=== PATIENT | male | born 1945 | race African-American/Black ===

== ENCOUNTER 2019-04-15 13:04 | Emergency (ER) | payer MEDICARE, MEDICAID, SELFPAY ==
[2019-04-15 13:05] VITALS: BP 124/78; PULSE 49; RESP 14; TEMP 36.5; O2SAT 97; BMI 23.3
[2019-04-15 13:10] VITALS: PULSE 43; RESP 14; O2SAT 98
--- NOTE | 2019-04-15 13:12 | EKG12_ITS ---
Test Reason : Blood Pressure : / mmHG Vent. Rate : 045 BPM Atrial Rate : 045 BPM P-R Int : 164 ms QRS Dur : 090 ms QT Int : 432 ms P-R-T Axes : 048 046 055 degrees QTc Int : 373 ms Sinus bradycardia Minimal voltage criteria for LVH, may be normal variant Septal infarct , age undetermined Abnormal ECG Confirmed by ANAYELI VILLAFUERTE ([id number]), marketing editor MARYANN ZARATE ([id number] on 04/17/2019 1:45:34 PM Referred By: YANDY Confirmed By:ANAYELI VILLAFUERTE
--- NOTE | 2019-04-15 13:14 | NURSING ---
NO OLD EKGS
[2019-04-15 14:22] LABS: Absolute Lymphocyte Count 1.47 X10^3/uL (0.83-4.51); Basophil# 0.05 X10^3/uL; Basophil% 1.2 % (0-1); Eosinophil# 0.22 X10^3/uL; Eosinophils% 5.4 % (0-5); Hemoglobin 13.4 g/dL (13.0-16.5); Lymphocyte # 1.47 X10^3/ul (4.0); Lymphocyte % 35.9 % (19-41); Mean Corp Hgb Conc 32.7 g/dL (32-36); Mean Corpuscular Hgb 32.9 pg (27.0-32.0); Mean Corpuscular Volume 100.7 fL (80-94); Mean Platelet Vol. 10.1 fl (6.2-12.0); Monocyte# 0.32 X10^3/uL; Monocyte% 7.8 % (0-10); NRBC Flagged by Analyzer 0 % (0-5); Neutrophil # 2.03 X10^3/uL (2.7-7.7); Neutrophil % 49.7 % (47-70); Platelet Count 295 K/mm3 (150-450); RBC Distribution Width CV 12.1 % (11.6-14.6); RBC Distribution Width SD 45.6 fl (35.1-43.9); Red Blood Count 4.07 M/mm3 (4.6-6.2); White Blood Count 4.1 K/mm3 (4.4-11.0)
[2019-04-15 14:36] LABS: ALB/GLOB Ratio 1.1 RATIO (0.9-2.4); AST(SGOT) 20 U/L (15-37); Alanine Aminotransfer ALT/SGPT 26 U/L (16-61); Albumin, Serum 3.7 g/dL (3.2-5.0); Alkaline Phosphatase 73 U/L (45-117); Anion Gap 3 (5-15); BUN 11 mg/dL (7-18); BUN/Creat Ratio 10.5 RATIO (10-20); Calcium,Total 9.7 mg/dL (8.5-10.1); Chloride 107 mmol/L (98-107); Creatinine, Serum 1.05 mg/dL (0.70-1.30); EST Glomerular Filtration Rate 74 mL/min (>60); Est Glom Filt Rate - Afr Amer 89 mL/min (>60); Estimated Creatinine Clearance 51.18 ml/min; Globulin 3.5 g/dL (2.2-4.2); Glucose 71 mg/dL (74-106); Potassium 4.5 mmol/L (3.5-5.1); Protein, Total 7.2 g/dL (6.4-8.2); Sodium Level 141 mmol/L (136-145)
[2019-04-15 14:56] VITALS: BP 107/84; BP 114/77; BP 118/77; PULSE 48; PULSE 49; PULSE 52
[2019-04-15 15:12] VITALS: BP 117/84; PULSE 36; RESP 13; O2SAT 100
--- NOTE | 2019-04-15 15:20 | ED.VISSUMM ---
- ER Visit Summary Date of Service: 04/15/19 Chief Complaint: Dizziness and bradycardia History of Present Illness: The patient is a 73 M who presents with intermittent dizziness that began yesterday. Patient states the dizziness last approximately 5 seconds. Patient states he feels like it is falling off to his left side. Patient states he feels like he is off balance. Patient states nothing makes it better or worse. Patient saw his primary care physician today who noted that he was having bradycardia and referred him to the emergency department. Patient denies any chest pain. Patient denies any shortness of breath. Patient denies any nausea or vomiting. Patient denies any diaphoresis. Currently, the patient denies any dizziness. Physical Examination: Vital signs are stable. Patient is afebrile. Patient is in no acute distress. Oral mucosa is pink and moist. Neck is supple. Trachea is midline. There is no JVD noted. Heart was regular rate and rhythm. Lungs are clear and equal bilaterally. Abdomen is soft. Bowel sounds are normal. There is no tenderness. There is no rebound or guarding noted. Skin is warm dry. Cranial nerves II through XII are intact. There are no focal motor or sensory deficits noted. Extremities are intact. There is no calf tenderness or edema. Test Results: EKG showed sinus bradycardia with a rate of 45. There are no acute ST or T wave changes. There are no prior EKGs available for comparison. CBC and basic metabolic profile were within normal limits. Orthostatic vital signs were obtained and were negative. Emergency Department Course and Treatment: Patient remained asymptomatic throughout his emergency department stay. Patient was instructed to drink plenty of fluids. Patient was instructed to follow-up with his primary care physician in 5 to 7 days. Patient understood and was agreeable with the plan. All questions were answered. Disposition: Discharge home Impression: 1. Bradycardia 2. Intermittent dizziness This note was generated with [employer] dictation software. It may contain incorrect words, spelling, and punctuation that were not noted in review of the chart prior to signing ED Disposition - Plan for ED Patient: Disposition: Home or Assisted Living Diagnosis: Sinus bradycardia, Dizziness of unknown cause Instructions: Bradycardia, DIZZINESS, Unk Cause Referrals: Jacy Haney MD [Primary Care Provider] - 5-7 Days
[2019-04-15 15:34] VITALS: BP 117/84; PULSE 52; RESP 16; O2SAT 100
--- NOTE | 2019-04-15 15:34 | ED.RN ---
REVIEWED D/C INSTRUCTIONS, FOLLOW UP CARE, AND S/S THAT WOULD WARRANT A RETURN TO THE ED WITH PT. PT VERBALIZED AN UNDERSTANDING AND DENIES FURTHER QUESTIONS FOR THIS RN. PT SKIN WARM/DRY, RESP EVEN AND UNLABORED, PT A&O X 3, NO DISTRESS NOTED. PT AMBULATED OUT OF ED, GAIT STEADY.
== END 2019-04-15 15:36 | disposition home or self-care (01) ==
PROVIDERS: Emergency Provider Emergency Medicine; PCP Internal Medicine
DX: R42 Dizziness and giddiness (principal); R00.1 Bradycardia, unspecified; F39 Unspecified mood [affective] disorder; Z72.0 Tobacco use; Z79.899 Other long term (current) drug therapy
CPT/HCPCS: 80053; 85025; 93005; 99285; A4216

== ENCOUNTER → 2020-04-21 14:47 | Outpatient (CLI) | payer MEDICARE, MEDICAID, SELFPAY ==
[2020-04-21 17:47] LABS: Absolute Lymphocyte Count 1.77 X10^3/uL (0.83-4.51); Absolute Neutrophil Count 3.8 X10^3/uL (2.0-7.7); Basophil# 0.06 X10^3/uL; Eosinophil# 0.13 X10^3/uL; Eosinophils% 2.1 % (0-5); Hematocrit 41.6 % (40-54); Hemoglobin 13.5 g/dL (13.0-16.5); Lymphocyte # 1.77 X10^3/ul (4.0); Lymphocyte % 28.4 % (19-41); Mean Corp Hgb Conc 32.5 g/dL (32-36); Mean Corpuscular Hgb 31.8 pg (27.0-32.0); Mean Corpuscular Volume 97.9 fL (80-94); Mean Platelet Vol. 9.6 fl (6.2-12.0); Monocyte# 0.49 X10^3/uL; Monocyte% 7.9 % (0-10); NRBC Flagged by Analyzer 0 % (0-5); Neutrophil # 3.77 X10^3/uL (2.7-7.7); Neutrophil % 60.4 % (47-70); Platelet Count 409 K/mm3 (150-450); RBC Distribution Width CV 11.8 % (11.6-14.6); RBC Distribution Width SD 42.5 fl (35.1-43.9); Red Blood Count 4.25 M/mm3 (4.6-6.2); White Blood Count 6.2 K/mm3 (4.4-11.0)
[2020-04-21 18:29] LABS: Vitamin B12 760 pg/mL (211-911); Vitamin D,25 Hydroxy 34.5 ng/mL
[2020-04-21 18:42] LABS: ALB/GLOB Ratio 0.9 RATIO (0.9-2.4); AST(SGOT) 14 U/L (15-37); Alanine Aminotransfer ALT/SGPT 16 U/L (16-61); Albumin, Serum 3.5 g/dL (3.2-5.0); Alkaline Phosphatase 85 U/L (45-117); Anion Gap 6 (5-15); BUN 14 mg/dL (7-18); BUN/Creat Ratio 12.7 RATIO (10-20); Calcium,Total 9.9 mg/dL (8.5-10.1); Chloride 101 mmol/L (98-107); EST Glomerular Filtration Rate 70 mL/min (>60); Est Glom Filt Rate - Afr Amer 84 mL/min (>60); Globulin 3.8 g/dL (2.2-4.2); Glucose 94 mg/dL (74-106); Potassium 4.6 mmol/L (3.5-5.1); Prealbumin 19.9 mg/dL (20.0-40.0); Protein, Total 7.3 g/dL (6.4-8.2); Sodium Level 136 mmol/L (136-145); Thyroid Stim Hormone (TSH) 0.72 uIU/mL (0.358-3.74)
== END ==
PROVIDERS: PCP Family Medicine; Referring Provider Family Medicine; Visit Provider Family Medicine
DX: R63.0 Anorexia (principal); R63.4 Abnormal weight loss
CPT/HCPCS: 36415; 80053; 82306; 82607; 84134; 84443; 85025

== ENCOUNTER → 2020-05-03 13:17 | Outpatient (CLI) | payer MEDICARE, MEDICAID, SELFPAY ==
--- NOTE | 2020-05-03 13:19 | CT_ITS ---
STUDY: CT CHEST WITHOUT CONTRAST- LOW DOSE SCREENING PROTOCOL REASON FOR EXAM: Male, 74 years old. Current smoker. 64 pack per year history. No current symptoms of lung cancer or pulmonary infection. Shared decision-making with referring PCP documented in patient''s record. RADIATION DOSAGE (If Supplied By Facility): CTDIvol = ( 1.70 ) mGy, DLP = ( 58.92 ) mGycm TECHNIQUE: Low dose screening CT examination performed from the base of the neck to the upper abdomen. Sagittal and coronal reformatted images performed. Sagittal and coronal MIP images provided. The measurements provided are average, rounded measurements per ACR guidelines. COMPARISON: None. FINDINGS: Mild emphysematous changes. No noncalcified nodule or mass. There is no demonstrated pleural abnormality. Normal heart and pericardium. There are calcifications of the coronary arteries. Normal mediastinum. Normal hilar regions. Normal unenhanced pulmonary arteries. Normal aorta arch and descending thoracic aorta. Normal osseous structures. There is no demonstrated abnormality of the visualized upper abdomen. CT/Low Dose CT Lung Screening IMPRESSION: 1. No significant indeterminate incidental findings requiring additional imaging. 2. Incidental findings include mild emphysema. ASSESSMENT CATEGORY: LungRADS 1 - Negative. Continue annual screening with LDCT in 12 months, per established ACR guidelines. Electronically Signed: Orlando Escobar MD at 14:05 EST Tel , Service support ,
== END ==
PROVIDERS: PCP Family Medicine; Referring Provider Family Medicine; Visit Provider Family Medicine
DX: F17.210 Nicotine dependence, cigarettes, uncomplicated (principal); Z12.2 Encounter for screening for malignant neoplasm of respiratory organs
CPT/HCPCS: 71271

== ENCOUNTER 2020-07-17 21:37 | Inpatient (IN) | payer MEDICARE, MEDICAID, SELFPAY ==
[2020-07-17 21:38] VITALS: BP 81/61; PULSE 93; RESP 19; TEMP 36.6; O2SAT 95; BMI 20.4
[2020-07-17 21:59] VITALS: O2SAT 99
--- NOTE | 2020-07-17 21:59 | EKG12_ITS ---
Test Reason : CP Blood Pressure : / mmHG Vent. Rate : 090 BPM Atrial Rate : 090 BPM P-R Int : 158 ms QRS Dur : 070 ms QT Int : 328 ms P-R-T Axes : 048 070 016 degrees QTc Int : 401 ms Normal sinus rhythm Septal infarct , age undetermined Abnormal ECG Confirmed by KIMBERLY LEUNG, TOMAS ([id number]), slot editor SLY GALVAN ([id number]) on 07/20/2020 9:31:16 AM Referred By: LILY Confirmed By:TOMAS HARRIS MD
[2020-07-17] MEDS: 0.9% Normal Saline 1,000 ML 999 ML IV ×2 (22:00→23:54)
[2020-07-17 22:06] LABS: Absolute Lymphocyte Count 0.99 X10^3/uL (0.83-4.51); Absolute Neutrophil Count 6.4 X10^3/uL (2.0-7.7); Basophil# 0.03 X10^3/uL; Basophil% 0.4 % (0-1); Eosinophil# 0.04 X10^3/uL; Eosinophils% 0.5 % (0-5); Hematocrit 25.4 % (40-54); Hemoglobin 8.3 g/dL (13.0-16.5); Lymphocyte # 0.99 X10^3/ul (0.83-4.51); Lymphocyte % 12.4 % (19-41); Mean Corp Hgb Conc 32.7 g/dL (32-36); Mean Corpuscular Hgb 31.7 pg (27.0-32.0); Mean Corpuscular Volume 96.9 fL (80-94); Mean Platelet Vol. 8.6 fl (6.2-12.0); Monocyte# 0.53 X10^3/uL; Monocyte% 6.6 % (0-10); NRBC Flagged by Analyzer 0 % (0-5); Neutrophil # 6.36 X10^3/uL (2.7-7.7); Neutrophil % 79.7 % (47-70); Platelet Count 419 K/mm3 (150-450); RBC Distribution Width CV 12.6 % (11.6-14.6); RBC Distribution Width SD 44.4 fl (35.1-43.9); Red Blood Count 2.62 M/mm3 (4.6-6.2)
--- NOTE | 2020-07-17 22:07 | RAD_ITS ---
INDICATION: chest pain EXAMINATION/TECHNIQUE: X-RAY - XR Chest 1 View COMPARISON: None. FINDINGS: Airspace consolidation in the right lower lobe. The cardiomediastinal silhouette is unremarkable. No pleural effusion or pneumothorax. Degenerative changes of the thoracic spine and shoulders. RAD/Chest 1 View (Portable) IMPRESSION: Airspace consolidation in the right lower lobe concerning for infection. Electronically Signed: Gavin Alonzo MD at 22:59 EDT Tel , Service support ,
[2020-07-17 22:19] VITALS: BP 81/58; PULSE 89; RESP 14; O2SAT 98
--- NOTE | 2020-07-17 22:23 | EDS_ITS ---
HPI History of Present Illness Chief Complaint: Chest Pain Narrative Narrative: 74-year-old male presenting with chest pain. He states it started earlier this evening but he does not know what time. He is not currently having any chest pain. Patient also states that he has had some black stool starting this evening he believes. He denies black or bloody stools prior to this. He states he is not on anticoagulation. Patient is a poor informant and only answer some questions. [facility] Medical History (Updated 07/18/20 @ 02:[address] Roya Glynn MD) Arthritis Asthma Biceps tendon rupture Chronic back pain Depression with anxiety Drug abuse in remission Enlarged prostate no medical history Home Medications duloxetine 30 mg PO DAILY 07/18/20 [History Last Taken Unknown] trazodone 50 mg PO QHS 07/18/20 [History Last Taken Unknown] Allergy/AdvReac Type Severity Reaction Status Date / Time No Known Allergies Allergy Verified 04/15/19 13:09 Family History Father Cancer LUNG Arthritis Mother Arthritis Brother Arthritis Sister Arthritis Surgical History Jaw fracture Social History household members: none Smoking Status: Former smoker quit date: 06/28/20 how long ago did patient quit smoking: Patient quit 06/28/20, smoked 3 black/mild cigar daily, prior 1/2 ppd cigaret alcohol intake: current alcohol intake frequency: 0-2 drinks per day Alcohol type: beer and wine substance use type: marijuana what type of physical activity do you participate in: bicycling frequency: 5-6 times per week ROS ROS ED Constitutional Constitutional ED: Denies chills, fever(s) or sweats Eyes Eyes: Denies blurry vision or change in vision ENT ENT ED: Denies ear pain, rhinorrhea or sore throat Cardiovascular Cardiovascular: Reports chest pain and palpitations; Denies racing heartbeat Respiratory/Chest Respiratory/Chest: Denies cough, dyspnea or sputum Gastrointestinal Gastrointestinal: Reports melena; Denies abdominal pain, constipation, diarrhea or vomiting Genitourinary Genitourinary ED: Denies dysuria, hematuria or urinary frequency Musculoskeletal Musculoskeletal: Denies arthralgias, myalgias or neck pain Integumentary Denies abscess, Abrasions or rash Neurologic Neurologic: Denies headache(s), paresthesias or weakness Psychiatric Psychiatric: Denies anxiety, depression, suicidal ideation or suicidal thoughts Endocrine Endocrinology: Denies polydipsia or polyuria EXAM Physical Exam Const Vital Signs: 07/17/20 21:38 07/17/20 21:44 07/17/20 21:59 Temperature 97.8 F Temperature Source Temporal Pulse Rate 93 Respiratory Rate 19 H Respiratory Effort Normal Non-Labored Blood Pressure 81/61 L Blood Pressure Mean 67 Blood Pressure Source Pulse Ox 95 99 Oxygen Delivery Method Room Air Room Air 07/17/20 22:19 07/17/20 23:00 07/18/20 00:09 Temperature Temperature Source Pulse Rate 89 87 79 Respiratory Rate 14 14 16 Respiratory Effort Blood Pressure 81/58 L 86/52 L 94/60 Blood Pressure Mean 65 63 71 Blood Pressure Source Pulse Ox 98 96 Oxygen Delivery Method Room Air Room Air 07/18/20 00:37 07/18/20 00:52 07/18/20 01:01 Temperature 99.7 F H 99.0 F 99.0 F Temperature Source Temporal Temporal Temporal Pulse Rate 70 73 71 Respiratory Rate 16 15 16 Respiratory Effort Blood Pressure 87/55 L 91/58 L 91/58 L Blood Pressure Mean 65 69 69 Blood Pressure Source Monitor Monitor Pulse Ox 96 99 97 Oxygen Delivery Method Room Air Room Air Room Air 07/18/20 01:52 07/18/20 02:08 Temperature 99.5 F H 99.5 F H Temperature Source Temporal Temporal Pulse Rate 72 70 Respiratory Rate 17 17 Respiratory Effort Blood Pressure 90/57 L 90/57 L Blood Pressure Mean 68 68 Blood Pressure Source Monitor Pulse Ox 100 100 Oxygen Delivery Method Room Air Room Air General Appearance ED: Negative for pallor HEENT Reports normocephalic, head/scalp atraumatic and moist mucous membranes normocephalic and atraumatic Eyes PERRL and EOMs intact bilaterally Neck no lymphadenopathy and supple Chest Wall inspection of chest normal and palpation of chest normal Resp normal respiratory effort and clear to auscultation bilaterally Auscultation: Negative for rales, rhonchi or wheezes Cardio regular rate and regular rhythm GI normal to inspection, nondistended, normoactive bowel sounds and non-distended Auscultation: normoactive bowel sounds Palpation: soft Narrative: Deferred Back/Spine no CVA tenderness General Back: Negative for CVA tenderness Cervical Spine: Negative for cervical spine tenderness Extremity normal to inspection General Extremety ED: Yes edema and tenderness General Extremity: edema Neuro oriented x3 and CN's II-XII intact bilaterally Sensorium / Orientation: alert Motor Exam: strength 5/5 throughout Psych mental status grossly normal Attitude: No agitated Skin no rashes or lesions noted and no wounds General Skin Exam: Negative for jaundice or pallor MDM MDM MDM Narrative Medical decision making narrative: 74-year-old male presenting with chest pain, hypotension. Patient states he was just in [facility] yesterday. He was diagnosed with esophageal cancer. Apparently had some stenting done which made it worse. He states that he checked himself out of [facility]. He states that he does feel generally weak. Patient was given a bolus of IV fluids. Lab work shows that his hemoglobin is 8.3 which is significantly different than previously. He was typed and screened and crossmatched for 2 units. His blood pressure did improve with IV fluids. Patient has no leukocytosis with a white blood count of 8.0. INR 1.1. Renal function and electrolytes are normal. Troponin is negative. EKG performed on arrival shows sinus rhythm at 90 bpm without signs of ischemic changes as interpreted by myself. Chest x-ray one- view portable as interpreted by myself shows right lower lobe consolidation and radiology does agree. Patient is started on vancomycin and Zosyn given his recent admission. Patient's initial Hemoccult is negative, however he is hypotensive and appears acutely anemic so we will transfuse 2 units of blood. Given patient's hypotension and chest pain I did also obtain CTA of the chest abdomen pelvis. This was negative for acute findings as interpreted by radiology. After further discussing this with the patient he states that he had upper endoscopy at [facility] to adjust a stent of his esophagus which was placed in [place] a couple of months ago. He states that after adjustment he asked them to take this out because it was hurting him. He states that he does want treatment for cancer and that is why he left the hospital to come out here (meaning [place]) for cancer treatment. This was not set up by the other facility. It is unclear whether he left the hospital facility prior to having this set up. When directly asked to answer the question he does not answer the question. He does get frustrated with questioning about his previous health care. He states he thought that all medical hospitals were connected. I explained to him that I do not have access to his medical records from another hospital facility. I did try to look in [place] however this is not working at this time. Patient's blood pressure after liter bolus did improve however it is starting to go down and I will order another liter bolus while obtaining blood products. I was able to receive a fax from [facility] with his previous admission labs and imaging. It appears that his hemoglobin is about the same as he was there. There are no vital signs in the fax I received however there is mention that his blood pressure is on the lower side. When asked what his blood pressure usually resides at he states 37. It is lower than what it was last time he was at [facility] however. Patient was given 1 unit of PRBCs. His pressure did improve to 93/59. Lactic acid is negative. CBC shows no leukocytosis. Troponin is negative. Hemoccult stool was negative. Urine drug screen is positive for cannabinoids. Patient's urinalysis is slightly contaminated and culture is pending. Patient is covered by vancomycin and Zosyn. Given that the patient's hemoglobin is stable from his previous visit, his Hemoccult is negative, and it appears that his blood pressure runs on the lower side I feel it is safe to admit him to [facility] given his chest pain and hospital-acquired pneumonia. Cultures are pending. Discussed with hospitalist and patient will go to PCU for treatment. Impression: 1. Anemia 2. Hypotension 3. Hospital-acquired pneumonia 4. History of esophageal adenocarcinoma 5. Chest pain Lab Data Labs: Laboratory Results - last 24 hr 07/17/20 07/17/20 07/17/20 22:00 22:00 22:00 WBC 8.0 RBC 2.62 L Hgb 8.3 L Hct 25.4 L MCV 96.9 H MCH 31.7 MCHC 32.7 RDW Std Deviation 44.4 H RDW Coeff of Slime 12.6 Plt Count 419 MPV 8.6 Immature Gran % (Auto) 0.400 Neut % (Auto) 79.7 H Lymph % (Auto) 12.4 L [place] % (Auto) 6.6 Eos % (Auto) 0.5 Baso % (Auto) 0.4 Absolute Neuts (auto) 6.4 Absolute Lymphs (auto) 0.99 Nucleated RBC % 0 PT 13.5 INR 1.1 Sodium 138 Potassium 4.2 Chloride 102 Carbon Dioxide 30.0 Anion Gap 6 BUN 22 H Creatinine 0.86 Estim Creat Clear Calc 56.59 Est GFR (MDRD) Af Amer 111 Est GFR (MDRD) Non-Af 92 BUN/Creatinine Ratio 25.5 H Glucose 109 H Lactic Acid Calcium 9.3 Total Bilirubin Direct Bilirubin AST ALT Alkaline Phosphatase Troponin I < 0.015 Total Protein Albumin Globulin Urine Color Urine Clarity Urine pH Ur Specific [place] Urine Protein Urine Glucose (UA) Urine Ketones Urine Occult Blood Urine Nitrite Urine Bilirubin Urine Urobilinogen Ur Leukocyte Esterase Urine RBC Urine WBC Ur Squamous Epith Cells Amorphous Sediment Urine Bacteria Urine Mucus Urine Opiates Screen Urine Methadone Screen Ur Barbiturates Screen Ur Phencyclidine Scrn Ur Amphetamines Screen U Methamphetamin-MDMA U Benzodiazepines Scrn Urine Cocaine Screen U Cannabinoids Screen Ur Drug Screen Comment Ethyl Alcohol Blood Type Antibody Screen Crossmatch 07/17/20 07/17/20 07/17/20 22:00 22:00 22:34 WBC RBC Hgb Hct MCV MCH MCHC RDW Std Deviation RDW Coeff of Slime Plt Count MPV Immature Gran % (Auto) Neut % (Auto) Lymph % (Auto) [place] % (Auto) Eos % (Auto) Baso % (Auto) Absolute Neuts (auto) Absolute Lymphs (auto) Nucleated RBC % PT INR Sodium Potassium Chloride Carbon Dioxide Anion Gap BUN Creatinine Estim Creat Clear Calc Est GFR (MDRD) Af Amer Est GFR (MDRD) Non-Af BUN/Creatinine Ratio Glucose Lactic Acid Calcium Total Bilirubin 0.20 Direct Bilirubin 0.10 AST 11 L ALT 12 L Alkaline Phosphatase 53 Troponin I Total Protein 5.6 L Albumin 2.1 L Globulin 3.5 Urine Color Urine Clarity Urine pH Ur Specific [place] Urine Protein Urine Glucose (UA) Urine Ketones Urine Occult Blood Urine Nitrite Urine Bilirubin Urine Urobilinogen Ur Leukocyte Esterase Urine RBC Urine WBC Ur Squamous Epith Cells Amorphous Sediment Urine Bacteria Urine Mucus Urine Opiates Screen Urine Methadone Screen Ur Barbiturates Screen Ur Phencyclidine Scrn Ur Amphetamines Screen U Methamphetamin-MDMA U Benzodiazepines Scrn Urine Cocaine Screen U Cannabinoids Screen Ur Drug Screen Comment Ethyl Alcohol < 3.0 Blood Type O POSITIVE Antibody Screen NEGATIVE Crossmatch See Detail 07/17/20 07/17/20 07/17/20 22:47 22:47 23:40 WBC RBC Hgb Hct MCV MCH MCHC RDW Std Deviation RDW Coeff of Slime Plt Count MPV Immature Gran % (Auto) Neut % (Auto) Lymph % (Auto) [place] % (Auto) Eos % (Auto) Baso % (Auto) Absolute Neuts (auto) Absolute Lymphs (auto) Nucleated RBC % PT INR Sodium Potassium Chloride Carbon Dioxide Anion Gap BUN Creatinine Estim Creat Clear Calc Est GFR (MDRD) Af Amer Est GFR (MDRD) Non-Af BUN/Creatinine Ratio Glucose Lactic Acid 1.9 Calcium Total Bilirubin Direct Bilirubin AST ALT Alkaline Phosphatase Troponin I Total Protein Albumin Globulin Urine Color Yellow Urine Clarity Sl. Cloudy Urine pH 8.0 Ur Specific [place] 1.015 Urine Protein Negative Urine Glucose (UA) Normal Urine Ketones Negative Urine Occult Blood Negative Urine Nitrite Negative Urine Bilirubin Negative Urine Urobilinogen Normal Ur Leukocyte Esterase 500 H Urine RBC 0 SEEN Urine WBC 10-25 SEEN Ur Squamous Epith Cells 0-5 SEEN Amorphous Sediment 1+ Urine Bacteria RARE Urine Mucus 0 SEEN Urine Opiates Screen NEGATIVE Urine Methadone Screen NEGATIVE Ur Barbiturates Screen NEGATIVE Ur Phencyclidine Scrn NEGATIVE Ur Amphetamines Screen NEGATIVE U Methamphetamin-MDMA NEGATIVE U Benzodiazepines Scrn NEGATIVE Urine Cocaine Screen NEGATIVE U Cannabinoids Screen POSITIVE H Ur Drug Screen Comment Ethyl Alcohol Blood Type Antibody Screen Crossmatch Radiography Diagnostic Testing: Radiology Impression Chest X-Ray 07/17/20 22:07 IMPRESSION: Airspace consolidation in the right lower lobe concerning for infection. Electronically Signed: Gavin Alonzo MD at 22:59 EDT Tel , Service support , Chest/Abdomen/Pelvis CTA 07/18/20 00:03 IMPRESSION: Normal abdominal aorta and bilateral lower extremity run-off without a hemodynamically significant stenosis. Electronically Signed: Jazmine Zavaleta MD at 1:06 EDT , Service support , Critical Care Time Critical care time (excluding procedures): 30-74 minutes, Including time spent: (Obtaining old medical records.), Discussing w/Patient &/or Family/Miner [employer]acer and Arranging Admission or Transfer Discharge Plan Triage Chief Complaint: Chest Pain ED Provider: Andi Canales Dx/Rx/DC Orders Primary Care Provider: Jacy Haney
[2020-07-17 22:24] LABS: Anion Gap 6 (5-15); BUN 22 mg/dL (7-18); BUN/Creat Ratio 25.5 RATIO (10-20); Calcium,Total 9.3 mg/dL (8.5-10.1); Chloride 102 mmol/L (98-107); Creatinine, Serum 0.86 mg/dL (0.70-1.30); EST Glomerular Filtration Rate 92 mL/min (>60); Est Glom Filt Rate - Afr Amer 111 mL/min (>60); Estimated Creatinine Clearance 56.59 ml/min; Glucose 109 mg/dL (74-106); Potassium 4.2 mmol/L (3.5-5.1); Sodium Level 138 mmol/L (136-145)
[2020-07-17 22:38] LABS: International Normalized Ratio 1.1; Prothrombin Time (Protime)PT. 13.5 SECONDS (11.7-14.9)
[2020-07-17 22:50] LABS: Mucous, Urine 0 SEEN /hpf (<or=2+); Red Blood Cells-Urine 0 SEEN /hpf (0-5)
[2020-07-17 22:52] LABS: Color, Urine Yellow (Yellow); Glucose, Dipstick Normal (Normal); Ketone-Dipstick Negative (Negative); Leukocyte Esterase-Dipstick 500 /ul (Negative); Nitrite-Dipstick Negative (Negative); Occult Blood-Urine Negative /ul (Negative); Protein-Dipstick Negative (Negative); Specific Gravity, Urine 1.015 (1.002-1.030); Urine Bilirubin Dipstick Negative (Negative); Urine Clarity Sl. Cloudy (Clear); Urine Urobilinogen Normal (Normal)
[2020-07-17 23:00] VITALS: BP 86/52; PULSE 87; RESP 14; O2SAT 96
[2020-07-17 23:04] LABS: AST(SGOT) 11 U/L (15-37); Alanine Aminotransfer ALT/SGPT 12 U/L (16-61); Albumin, Serum 2.1 g/dL (3.2-5.0); Alkaline Phosphatase 53 U/L (45-117); Globulin 3.5 g/dL (2.2-4.2); Protein, Total 5.6 g/dL (6.4-8.2)
[2020-07-17 23:12] LABS: Amorphous Sediment 1+; Bacteria RARE /hpf (None Seen); Squamous Epithelial Cells - UA 0-5 SEEN /hpf (0-5); White Blood Cells 10-25 SEEN /hpf (0-5)
[2020-07-17 23:13] LABS: Alcohol, Blood (Medical)-Serum < 3.0 mg/dL
[2020-07-17 23:31] LABS: Amphetamine Urine VISTA NEGATIVE (<1000 ng/mL); Barbiturate Urine VISTA NEGATIVE (< 200 ng/mL); Benzodiazepine Urine VISTA NEGATIVE (< 200 ng/mL); Cocaine Urine VISTA NEGATIVE (< 300 ng/mL); Ecstacy Urine VISTA NEGATIVE (< 500 ng/mL); Methadone Urine VISTA NEGATIVE (< 300 ng/mL); PCP Urine VISTA NEGATIVE (< 25 ng/mL); THC Urine VISTA POSITIVE (< 50 ng/mL); Vista UDS pH Range 8
[2020-07-18] VITALS (25 sets, daily range): BP systolic 84–116; BP diastolic 47–65; PULSE 60–79; RESP 15–18; TEMP 37.1–37.6; O2SAT 95–100; BMI 20.5
--- NOTE | 2020-07-18 00:03 | CT_ITS ---
STUDY: CTA CHEST REASON FOR EXAM: Male, 74 years old. chest pain and hypotension RADIATION DOSAGE (If Supplied By Facility): CTDIvol = ( 7.97 ) mGy, DLP = ( 415.35 ) mGycm TECHNIQUE: The examination was performed with the intravenous administration of IV 100mL Isovue-370. Post-processing of the angiographic images was performed, with multiplanar reformation and 3D reconstruction. Individualized dose optimization techniques were used for this CT. COMPARISON: None. FINDINGS: Exam is limited due to minimal amount of fat which makes distinction of structures difficult. Normal enhancement of the main pulmonary artery and right and left pulmonary arteries. Normal enhancement of the bilateral peripheral pulmonary arteries. There is no demonstrated pulmonary embolism. There is atherosclerotic calcification of the aortic arch with tortuosity. There is no demonstrated aortic dissection. Normal heart and pericardium. Right hilar lymphadenopathy demonstrated with largest lymph node measuring 2.2 x 1.8 cm. Maintained of the mediastinal and hilar regions unremarkable. Normal visualized trachea and bronchi. The lungs are well expanded. There is right lower lobe and right middle lobe consolidation consistent with multilobar pneumonia. Normal pleura. Normal chest wall structures. There are degenerative changes of thoracic spine. Upper abdominal structures are described in detail and accompanying CTA abdomen and pelvis report. IMPRESSION: Negative CTA chest examination, without a demonstrated pulmonary embolism or arterial dissection. Right lower lobe and right middle lobe pneumonia with mild right hilar lymphadenopathy, likely reactive. STUDY: CTA OF THE ABDOMINAL AORTA AND BILATERAL LOWER EXTREMITIES REASON FOR EXAM: Male, 74 years old. chest pain and hypotension RADIATION DOSAGE (If Supplied By Facility): CTDIvol = ( 7.97 ) mGy, DLP = ( 415.35 ) mGycm TECHNIQUE: Axial CT angiography multi-detector data acquisition was obtained from the hemidiaphragm to the pubic symphysis following intravenous administration of IV 100mL Isovue-370. Axial images and MIP images were reconstructed from the axial data set. Post-processing of the angiographic images was performed, with multiplanar reformation and 3D reconstruction. Individualized dose optimization techniques were used for this CT. TECHNICAL QUALITY: Good COMPARISON: None. Descriptors of Narrowing: None (0%) Mild (< 50%) Moderate (50-70%) Severe (70-90%) Subtotal/Total Occlusion (90-100%) Non-Evaluable (technically non-diagnostic FINDINGS: Abdominal aorta: Mild atherosclerotic disease with tortuosity. No demonstrated narrowing. Celiac and superior mesenteric arteries: No demonstrated narrowing. Inferior mesenteric artery: No demonstrated narrowing. Right renal artery(arteries): Diffuse small size of the right renal artery with diffuse atrophy of the right kidney, partially obscured. Left renal artery(arteries): No demonstrated narrowing. Right common iliac artery: No demonstrated narrowing. Right external iliac artery: No demonstrated narrowing. Right internal iliac artery: No demonstrated narrowing. Left common iliac artery: No demonstrated narrowing. Left external iliac artery: No demonstrated narrowing. Left internal iliac artery: No demonstrated narrowing. RIGHT LOWER EXTREMITY Right common femoral artery: No demonstrated narrowing. Right profundus femoris: No demonstrated narrowing. LEFT LOWER EXTREMITY Left common femoral artery: No demonstrated narrowing. CT ABDOMEN AND PELVIS WITH CONTRAST Exam is limited due to minimal amount of fat and diffuse fluid infiltration including subcutaneous soft tissues and peritoneum consistent with fluid overload anasarca. This contributes to decrease resolution of the study. FINDINGS: Redemonstrated is right lower lobe and right middle lobe consolidation consistent with pneumonia. The visualized portions of the heart are within normal limits. Small low-attenuation structures within the liver, largest measuring 1.3 cm and consistent with a cyst. The smaller ones are too small to characterize and likely cysts in the absence of known neoplasm. Normal gallbladder and extrahepatic biliary system. Normal spleen. Normal pancreas. Suboptimally visualized bilateral adrenal glands. There is moderate to severe cortical atrophy of the right kidney, consistent with chronic medical renal disease. Several left-sided low-attenuation structure, too small to characterize and statistically consistent with renal cysts, largest seen within the middle pole measuring 0.87 cm. Thickening of the adkins of the stomach raising the concern for gastritis. Some of the small bowel loops are distended in the upper abdomen, cannot exclude ileus versus enteritis. There is increased fecal debris within the colon more severe to the rectosigmoid suggestive of constipation/fecal impaction. There is diverticulosis with no obvious diverticulitis within the limitations of the study described above. There is non-visualization of the appendix. Urinary bladder reveals thickening of the wall, cannot exclude cystitis. Normal abdominal wall. Advanced degenerative disease with scoliosis of the lumbar spine, convexity to the right. IMPRESSION: Unremarkable CT angiogram with no stenosis, occlusion or aneurysm. Constipation with distal fecal impaction. Diffuse esophageal thickening concerning for esophagitis. Thickening of the gastric wall raising the concern of gastritis. These findings recommended to be followed up with upper endoscopy. CT/CTA Chst, Abd, Pel W and/or WO IMPRESSION: Normal abdominal aorta and bilateral lower extremity run-off without a hemodynamically significant stenosis. Electronically Signed: Jazmine Zavaleta MD at 1:06 EDT , Service support ,
[2020-07-18 00:13] LABS: Lactic Acid 1.9 mmol/L (0.4-1.9)
--- NOTE | 2020-07-18 02:32 | HP.PCM.HOS_ITS ---
HPI - General General Date of Admission: 07/18/20 Chief Complaint: Dyspepsia, recent CA diagnosis. HPI Narrative The patient is a 74 y/o M w/ PMHx: Tobacco use, History of polysubstance abuse, OA, Anxiety and Depression, BPH, History of bradycardia who presents to the [facility] ED on 07/17/20 with history of onset of chest discomfort earlier this evening, lower sternal region, similar to dyspepsia sensation he notes. He also noted dark well formed stool on day of ED presentation with no associated abdominal pain. 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 He does report difficulty with swallowing. In the ED patient is a poor historian. Some records from [facility] obtained and recent Hgb noted 8.8. Work-up in the ED included T 97.8, HR 93, BP 81/61, RR 19, 95% on RA, CBC w/ WBC 8, Hgb 8.3, Plts 419 without marked shift, BMP with BUN/Cr 22/0.86, glucose 109, troponin less than 0.015, hepatic profile with AST/ALT 11/12, coags w/ PRT 13.5, INR 1.1, UA w/ LE 500, urine WBC 10-25, rate urine bacteria noted, T+C pending per ED, UDS negative aside + cannabinoids, EtOH level <3, negative guiac, CXR with airspace consolidation RLL w/ follow-up CTPA w/ right lower lobe and right middle lobe pneumonia with mild right hilar lymphadenopathy. In the ED patient administered IV vanc and zosyn. Some records from [facility] obtained and recent Hgb similar 8.8. [facility] Medical History (Updated 07/18/20 @ 02:[address] Roya Glynn MD) Arthritis Asthma Biceps tendon rupture Chronic back pain Depression with anxiety Drug abuse in remission Enlarged prostate Home Medications duloxetine 30 mg PO DAILY 07/18/20 [History Last Taken Unknown] trazodone 50 mg PO QHS 07/18/20 [History Last Taken Unknown] Allergy/AdvReac Type Severity Reaction Status Date / Time No Known Allergies Allergy Verified 04/15/19 13:09 Family History Father Cancer LUNG Arthritis Mother Arthritis Brother Arthritis Sister Arthritis Surgical History Jaw fracture Social History (Updated 07/18/20 @ 02:[address] Roya Glynn MD) household members: none Smoking Status: Former smoker quit date: 06/28/20 how long ago did patient quit smoking: Patient quit 06/28/20, smoked 3 black/mild cigar daily, prior 1/2 ppd cigaret alcohol intake: current alcohol intake frequency: 0-2 drinks per day Alcohol type: beer and wine substance use type: marijuana what type of physical activity do you participate in: bicycling frequency: 5-6 times per week ROS ROS Narrative Admission Review of Systems: CONSTITUTIONAL: No weight loss, fever, chills, + weakness or fatigue. HEENT: Eyes: No visual loss, blurred vision, double vision or yellow sclerae. Ears, Nose, Throat: No hearing loss, sneezing, congestion, runny nose or sore throat. SKIN: No rash or itching, lesions, wounds. CARDIOVASCULAR: + Dyspepsia sensation/chest pain, No chest pressure, palpitations, edema, orthopnea, syncopal events. RESPIRATORY: No shortness of breath, cough or sputum, wheezing, hemoptysis. GASTROINTESTINAL: + Dark stools, dysphagia. No anorexia, nausea, vomiting or diarrhea, abdominal pain, melena, BRBPR. GENITOURINARY: No dysuria, frequency, urgency or retention. NEUROLOGICAL: No headache, dizziness, syncope, paralysis, ataxia, numbness or tingling in the extremities, focal weakness, change in bowel or bladder control, seizure. MUSCULOSKELETAL: + muscle, back pain, joint pain or stiffness. HEMATOLOGIC: + anemia, bleeding or bruising. LYMPHATICS: No enlarged nodes. No history of splenectomy. PSYCHIATRIC: + history of depression or anxiety. ENDOCRINOLOGIC: No reports of sweating, cold or heat intolerance. No polyuria or polydipsia. ALLERGIES: No history of asthma, hives, eczema or rhinitis. Vital Signs Vital Signs Vital Signs: 07/17/20 21:38 07/17/20 21:44 07/17/20 21:59 Temperature 97.8 F Temperature Source Temporal Pulse Rate 93 Respiratory Rate 19 H Respiratory Effort Normal Non-Labored Blood Pressure 81/61 L Blood Pressure Mean 67 Blood Pressure Source Pulse Ox 95 99 Oxygen Delivery Method Room Air Room Air 07/17/20 22:19 07/17/20 23:00 07/18/20 00:09 Temperature Temperature Source Pulse Rate 89 87 79 Respiratory Rate 14 14 16 Respiratory Effort Blood Pressure 81/58 L 86/52 L 94/60 Blood Pressure Mean 65 63 71 Blood Pressure Source Pulse Ox 98 96 Oxygen Delivery Method Room Air Room Air 07/18/20 00:37 07/18/20 00:52 07/18/20 01:01 Temperature 99.7 F H 99.0 F 99.0 F Temperature Source Temporal Temporal Temporal Pulse Rate 70 73 71 Respiratory Rate 16 15 16 Respiratory Effort Blood Pressure 87/55 L 91/58 L 91/58 L Blood Pressure Mean 65 69 69 Blood Pressure Source Monitor Monitor Pulse Ox 96 99 97 Oxygen Delivery Method Room Air Room Air Room Air 07/18/20 01:52 07/18/20 02:08 Temperature 99.5 F H 99.5 F H Temperature Source Temporal Temporal Pulse Rate 72 70 Respiratory Rate 17 17 Respiratory Effort Blood Pressure 90/57 L 90/57 L Blood Pressure Mean 68 68 Blood Pressure Source Monitor Pulse Ox 100 100 Oxygen Delivery Method Room Air Room Air Physical Exam Narrative Physical Examination: General: awake, alert, oriented x 3 and cooperative, seated upright in the ED bed in no apparent distress. Skin: normal color, turgor, no icterus, cyanosis. HEENT: AT/NC, EOMI, PERRLA, mildly dry MM, no carotid bruits or JVD noted. Lungs: Diminished BS R mid to base, coarse, decreased effort, no rales or wheezing. Heart: Regular rate and rhythm; no gallop, rub audible. Abdomen: soft, thin habitus, NTTP, ND, normal BS, no HSM. Extremities: no cyanosis, clubbing, or edema. Neurological: patient awake, alert, oriented as noted, cognitive function int act; pupils equally reactive to light and accommodation, cranial nerves II-XII grossly normal, moving all 4 extremities, no focal deficits, strength mildly globally decreased secondary to acute presentation. Psychiatric: affect appears fatigued and mildly irritable, no acute evidence of depressive or anxiety feelings. Lab / Micro Data Result Diagrams: 07/17/20 22:00 07/17/20 22:00 Labs: Laboratory Results - last 24 hr 07/17/20 07/17/20 07/17/20 22:00 22:00 22:00 WBC 8.0 RBC 2.62 L Hgb 8.3 L Hct 25.4 L MCV 96.9 H MCH 31.7 MCHC 32.7 RDW Std Deviation 44.4 H RDW Coeff of Slime 12.6 Plt Count 419 MPV 8.6 Immature Gran % (Auto) 0.400 Neut % (Auto) 79.7 H Lymph % (Auto) 12.4 L Frontier % (Auto) 6.6 Eos % (Auto) 0.5 Baso % (Auto) 0.4 Absolute Neuts (auto) 6.4 Absolute Lymphs (auto) 0.99 Nucleated RBC % 0 PT 13.5 INR 1.1 Sodium 138 Potassium 4.2 Chloride 102 Carbon Dioxide 30.0 Anion Gap 6 BUN 22 H Creatinine 0.86 Estim Creat Clear Calc 56.59 Est GFR (MDRD) Af Amer 111 Est GFR (MDRD) Non-Af 92 BUN/Creatinine Ratio 25.5 H Glucose 109 H Lactic Acid Calcium 9.3 Total Bilirubin Direct Bilirubin AST ALT Alkaline Phosphatase Troponin I < 0.015 Total Protein Albumin Globulin Urine Color Urine Clarity Urine pH Ur Specific Montgomery Urine Protein Urine Glucose (UA) Urine Ketones Urine Occult Blood Urine Nitrite Urine Bilirubin Urine Urobilinogen Ur Leukocyte Esterase Urine RBC Urine WBC Ur Squamous Epith Cells Amorphous Sediment Urine Bacteria Urine Mucus Urine Opiates Screen Urine Methadone Screen Ur Barbiturates Screen Ur Phencyclidine Scrn Ur Amphetamines Screen U Methamphetamin-MDMA U Benzodiazepines Scrn Urine Cocaine Screen U Cannabinoids Screen Ur Drug Screen Comment Ethyl Alcohol Blood Type Antibody Screen Crossmatch 07/17/20 07/17/20 07/17/20 22:00 22:00 22:34 WBC RBC Hgb Hct MCV MCH MCHC RDW Std Deviation RDW Coeff of Slime Plt Count MPV Immature Gran % (Auto) Neut % (Auto) Lymph % (Auto) Frontier % (Auto) Eos % (Auto) Baso % (Auto) Absolute Neuts (auto) Absolute Lymphs (auto) Nucleated RBC % PT INR Sodium Potassium Chloride Carbon Dioxide Anion Gap BUN Creatinine Estim Creat Clear Calc Est GFR (MDRD) Af Amer Est GFR (MDRD) Non-Af BUN/Creatinine Ratio Glucose Lactic Acid Calcium Total Bilirubin 0.20 Direct Bilirubin 0.10 AST 11 L ALT 12 L Alkaline Phosphatase 53 Troponin I Total Protein 5.6 L Albumin 2.1 L Globulin 3.5 Urine Color Urine Clarity Urine pH Ur Specific Montgomery Urine Protein Urine Glucose (UA) Urine Ketones Urine Occult Blood Urine Nitrite Urine Bilirubin Urine Urobilinogen Ur Leukocyte Esterase Urine RBC Urine WBC Ur Squamous Epith Cells Amorphous Sediment Urine Bacteria Urine Mucus Urine Opiates Screen Urine Methadone Screen Ur Barbiturates Screen Ur Phencyclidine Scrn Ur Amphetamines Screen U Methamphetamin-MDMA U Benzodiazepines Scrn Urine Cocaine Screen U Cannabinoids Screen Ur Drug Screen Comment Ethyl Alcohol < 3.0 Blood Type O POSITIVE Antibody Screen NEGATIVE Crossmatch See Detail 07/17/20 07/17/20 07/17/20 22:47 22:47 23:40 WBC RBC Hgb Hct MCV MCH MCHC RDW Std Deviation RDW Coeff of Slime Plt Count MPV Immature Gran % (Auto) Neut % (Auto) Lymph % (Auto) Frontier % (Auto) Eos % (Auto) Baso % (Auto) Absolute Neuts (auto) Absolute Lymphs (auto) Nucleated RBC % PT INR Sodium Potassium Chloride Carbon Dioxide Anion Gap BUN Creatinine Estim Creat Clear Calc Est GFR (MDRD) Af Amer Est GFR (MDRD) Non-Af BUN/Creatinine Ratio Glucose Lactic Acid 1.9 Calcium Total Bilirubin Direct Bilirubin AST ALT Alkaline Phosphatase Troponin I Total Protein Albumin Globulin Urine Color Yellow Urine Clarity Sl. Cloudy Urine pH 8.0 Ur Specific [place] 1.015 Urine Protein Negative Urine Glucose (UA) Normal Urine Ketones Negative Urine Occult Blood Negative Urine Nitrite Negative Urine Bilirubin Negative Urine Urobilinogen Normal Ur Leukocyte Esterase 500 H Urine RBC 0 SEEN Urine WBC 10-25 SEEN Ur Squamous Epith Cells 0-5 SEEN Amorphous Sediment 1+ Urine Bacteria RARE Urine Mucus 0 SEEN Urine Opiates Screen NEGATIVE Urine Methadone Screen NEGATIVE Ur Barbiturates Screen NEGATIVE Ur Phencyclidine Scrn NEGATIVE Ur Amphetamines Screen NEGATIVE U Methamphetamin-MDMA NEGATIVE U Benzodiazepines Scrn NEGATIVE Urine Cocaine Screen NEGATIVE U Cannabinoids Screen POSITIVE H Ur Drug Screen Comment Ethyl Alcohol Blood Type Antibody Screen Crossmatch Micro: Microbiology 07/17/20 22:55 Stool Occult Blood (JENNIFER) - Final Stool Radiology Impression Chest X-Ray 07/17/20 22:07 IMPRESSION: Airspace consolidation in the right lower lobe concerning for infection. Electronically Signed: Gavin Alonzo MD at 22:59 EDT Tel , Service support , Chest/Abdomen/Pelvis CTA 07/18/20 00:03 IMPRESSION: Normal abdominal aorta and bilateral lower extremity run-off without a hemodynamically significant stenosis. Electronically Signed: Jazmine Zavaleta MD at 1:06 EDT , Service support , Assessment & Plan Assessment/Plan (1) Pneumonia: QUALIFIERS: Pneumonia type: aspiration pneumonia Aspiration pneumonia type: unspecified Laterality: right Lung location: unspecified part of lung Qualified Code(s): J69.0 - Pneumonitis due to inhalation of food and vomit PLAN: The patient is a 74 y/o M w/ PMHx: Tobacco use, History of polysubstance abuse, OA, Anxiety and Depression, BPH, History of bradycardia who presents to the [facility] ED on 07/17/20 with history of onset of chest discomfort earlier this evening, lower sternal region, similar to dyspepsia sensation he notes. He also noted dark well formed stool on day of ED presentation with no associated abdominal pain. 1. Chest Pain, Multifactorial, likely associated w/ #1 and RLL/RML Multilobar Pneumonia, ? Aspiration with Recent Dx Esophageal CA: EKG in ED SR without acute evidence of ischemia however EMS with ? SVT strip but no recurrence in the ED, CXR w/ concern for RLL infiltrate w/ follow-up CTPA w/ right lower lobe and right middle lobe pneumonia with mild right hilar lymphadenopathy, initial trop <0.015. Will place on a monitored bed, obtain serial cardiac enzymes to be cautious, maintain on oxygen with wean as tolerated to room air, PRN albuterol, maintained on IV Zosyn pending Speech consultation as well as IV vanc given recent admission unclear duration pending MRSA screen, HOB, IS parameters w/ pending sputum cultures, respiratory viral panel and urine antigens. 2. Anemia secondary to Esophageal CA diagnosis, ? GI bleed component: Admission Hgb 8.3, prior 13.5 04/21/20; however, was recently d/c from [facility] w/ Hgb 8.8, stable. Guiac negative in the ED. Given unclear last Hgb did receive PRBC x 1 in the ED. Will maintain on IVFs, maintain NPO status given #1 also with likely aspiration, continue T+S w/ cross for PRBC administration initiated per ED given hypotension although patient chronically low BP per his report, maintain on IV PPI. Pending further Hgb trending and full records from [facility] may need to consider Surgery consultation. Per discussion with patient will request Oncology evaluation to assist in initiating start of evaluation/treatment. 3. Hypotension, ? Chronic: Associated with #2 likely given anemia, will continue to hydrate, ongoing ED initiated PRBC administration, continue to monitor. 4. Hx Tobacco Abuse: Encouraged continued cessation, inpatient consultation per RT, quit 06/28/20. 5. History of polysubstance abuse: UDS w/ + cannabis. Does admit to cannabis usage. Reports only 1-2 drinks daily w/ EtOH unremarkable upon presentation. 6. Anxiety and depression: We will continue patient home fluoxetine regimen. 7. BPH: Not on regimen, if any concerns may consider addition of Flomax 8. DVT prophylaxis: SCDs, defer chemoprophylaxis given presentation as noted above. 9. CODE status: Patient HCPOA and living will was not set up but he is interested in obtaining information with planned consultation with case management/social work. Discussed CODE status at length including difference between FULL code, DNR-CCA and DNR-CC status. Following discussions about the differences in these status, requested Full Code status. Advanced Care Planning Face to Face Time: 16 minutes. Visit Charges Inpatient E&M: 20684 Init Hosp L3 Procedures Hospitalists Procedures: 26727 Advncd Care Plan 30 Min
[2020-07-18] MEDS: 0.9% Normal Saline 1,000 ML 100 ML IV ×3 (03:40→21:21)
--- NOTE | 2020-07-18 05:15 | EKG12_ITS ---
Test Reason : CP ADMISSION Blood Pressure : / mmHG Vent. Rate : 064 BPM Atrial Rate : 064 BPM P-R Int : 160 ms QRS Dur : 076 ms QT Int : 384 ms P-R-T Axes : 051 067 033 degrees QTc Int : 396 ms Normal sinus rhythm Normal ECG Confirmed by VANCE LEUNG, TRISTIN ([id number]), make up editor SLY GALVAN ([id number]) on 07/21/2020 9:53:04 AM Referred By: MARIA DE JESUS Confirmed By:TRISTIN WOODARD MD
[2020-07-18 05:23] LABS: Absolute Neutrophil Count 5.2 X10^3/uL (2.0-7.7); Basophil# 0.03 X10^3/uL; Basophil% 0.4 % (0-1); Eosinophil# 0.04 X10^3/uL; Eosinophils% 0.6 % (0-5); Hematocrit 26.3 % (40-54); Hemoglobin 8.8 g/dL (13.0-16.5); Lymphocyte % 14.7 % (19-41); Mean Corp Hgb Conc 33.5 g/dL (32-36); Mean Corpuscular Hgb 31.3 pg (27.0-32.0); Mean Corpuscular Volume 93.6 fL (80-94); Mean Platelet Vol. 8.5 fl (6.2-12.0); Monocyte# 0.53 X10^3/uL; Monocyte% 7.8 % (0-10); NRBC Flagged by Analyzer 0 % (0-5); Neutrophil # 5.17 X10^3/uL (2.7-7.7); Neutrophil % 76.1 % (47-70); Platelet Count 355 K/mm3 (150-450); RBC Distribution Width CV 13.3 % (11.6-14.6); RBC Distribution Width SD 45.9 fl (35.1-43.9); Red Blood Count 2.81 M/mm3 (4.6-6.2); White Blood Count 6.8 K/mm3 (4.4-11.0)
[2020-07-18 05:47] LABS: ALB/GLOB Ratio 0.6 RATIO (0.9-2.4); AST(SGOT) 12 U/L (15-37); Alanine Aminotransfer ALT/SGPT 10 U/L (16-61); Albumin, Serum 1.8 g/dL (3.2-5.0); Alkaline Phosphatase 47 U/L (45-117); Anion Gap 4 (5-15); BUN 19 mg/dL (7-18); BUN/Creat Ratio 24.4 RATIO (10-20); Calcium,Total 8.5 mg/dL (8.5-10.1); Chloride 106 mmol/L (98-107); Creatinine, Serum 0.78 mg/dL (0.70-1.30); EST Glomerular Filtration Rate 104 mL/min (>60); Est Glom Filt Rate - Afr Amer 126 mL/min (>60); Estimated Creatinine Clearance 48.76 ml/min; Globulin 2.9 g/dL (2.2-4.2); Glucose 98 mg/dL (74-106); Magnesium 1.8 mg/dL (1.6-2.6); Phosphorus 2.9 mg/dL (2.5-4.9); Protein, Total 4.7 g/dL (6.4-8.2); Sodium Level 137 mmol/L (136-145)
[2020-07-18 06:44] LABS: M R Staph aureus DNA By PCR Negative (Negative); Probe Check PASS; Specimen Processing Control PASS
--- NOTE | 2020-07-18 09:21 | PCM.PN.BLA ---
Progress Note Patient is a 74-year-old gentleman recently diagnosed with esophageal CA admitted with multifocal pneumonia. Antibiotics initiated per protocol admitted to a monitored bed with consultation placed to speech therapy Patient seen and examined, his initial assessment including history and physical diagnostic data and management orders reviewed will follow.
--- NOTE | 2020-07-18 11:29 | PCM.NTREPORT ---
Nutrition Therapy Report - History Nutrition Services has been consulted to:: Manage nutrient details of diet order Current diet / nutrition support order:: NPO - Anthropometric Measurements Height:: 5 ft 3 in Weight:: 52.4 kg Body Mass Index (BMI):: 20.5 - Relevant Labs Relevant Labs:: RBC 2.81 M/mm3 (4.6-6.2) L 07/18/20 05:15 Hgb 8.8 g/dL (13.0-16.5) L 07/18/20 05:15 Hct 26.3 % (40-54) L 07/18/20 05:15 MCV 96.9 fL (80-94) H 07/17/20 22:00 RDW Std Deviation 45.9 fl (35.1-43.9) H 07/18/20 05:15 Neut % (Auto) 76.1 % (47-70) H 07/18/20 05:15 Lymph % (Auto) 14.7 % (19-41) L 07/18/20 05:15 Anion Gap 4 (5-15) L 07/18/20 05:15 BUN 19 mg/dL (7-18) H 07/18/20 05:15 BUN/Creatinine Ratio 24.4 RATIO (10-20) H 07/18/20 05:15 Glucose 109 mg/dL (74-106) H 07/17/20 22:00 AST 12 U/L (15-37) L 07/18/20 05:15 ALT 10 U/L (16-61) L 07/18/20 05:15 Total Protein 4.7 g/dL (6.4-8.2) L 07/18/20 05:15 Albumin 1.8 g/dL (3.2-5.0) L 07/18/20 05:15 Albumin/Globulin Ratio 0.6 RATIO (0.9-2.4) L 07/18/20 05:15 - Assessment Food / Nutrition-Related History:: Reports significant difficulty swallowing which has limited PO intake over past 1 year. Pt states wt was 140# 1 year ago, and got down to 102# suggesting a 38#/27% wt loss which is significant for malnutrition. - Nutrition Diagnosis Problem / Etiology / Signs & Symptoms (PES):: severe malnutrition r/t inadequate energy intake d/t esophageal mass as evidenced by unintentional wt loss of 38#/27% x 1 year, estimated PO intake meeting <75% of nutritional needs >3 months Evidence of Malnutrition Exists:: Yes Severe Protein Calorie Malnutrition:: Chronic Illness - Nutrition Intervention Nutrition Prescription:: [id number] calories/day (30-35 calories/kg). 78-88 g protein/day (1.5g/kg). 1560mL fluid/day (30mL/kg) - Food / Nutrient Delivery Interventions Summary of nutrition intervention:: WATER RESOURCES PROGRAM DIRECTOR recommending NPO status at this time. Per 07/18 WATER RESOURCES PROGRAM DIRECTOR evaluation: suspect esophageal stricture secondary to esophageal mass, resulting in significant superior esophageal residue post deglutition, putting pt at high risk for laryngeal reflux/aspiration, with resulting evident aspiration pneumonia. Anticipate pt will need PEG tube for nutrition support during cancer treatment. Will follow and provide further recommendations as indicated. Nutrition support ordered as / adjusted to:: when medically indicated, regular diet- texture/consistency per WATER RESOURCES PROGRAM DIRECTOR; however per WATER RESOURCES PROGRAM DIRECTOR it appears unlikely pt will be safe for PO nutrition in immediate future. Recommend PEG placement for enteral nutrition support. - MNT Monitoring Further MNT monitoring and evaluation required?: Yes MNT Follow-up in:: 1-2 days
[2020-07-18] MEDS: LORazepam 2 MG/ML Syringe 0.5 MG IV (23:24)
[2020-07-19] VITALS (11 sets, daily range): BP systolic 115–125; BP diastolic 68–75; PULSE 58–76; RESP 16–18; TEMP 36.2–36.9; O2SAT 94–100
[2020-07-19 06:45] LABS: Absolute Lymphocyte Count 1.15 X10^3/uL (0.83-4.51); Absolute Neutrophil Count 4.5 X10^3/uL (2.0-7.7); Basophil# 0.04 X10^3/uL; Basophil% 0.6 % (0-1); Eosinophil# 0.09 X10^3/uL; Eosinophils% 1.4 % (0-5); Hemoglobin 9.7 g/dL (13.0-16.5); Lymphocyte # 1.15 X10^3/ul (0.83-4.51); Lymphocyte % 18.1 % (19-41); Mean Corp Hgb Conc 33.4 g/dL (32-36); Mean Corpuscular Hgb 30.8 pg (27.0-32.0); Mean Corpuscular Volume 92.1 fL (80-94); Mean Platelet Vol. 8.5 fl (6.2-12.0); Monocyte# 0.51 X10^3/uL; NRBC Flagged by Analyzer 0 % (0-5); Neutrophil # 4.53 X10^3/uL (2.7-7.7); Neutrophil % 71.4 % (47-70); Platelet Count 425 K/mm3 (150-450); RBC Distribution Width CV 13.2 % (11.6-14.6); RBC Distribution Width SD 44.5 fl (35.1-43.9); Red Blood Count 3.15 M/mm3 (4.6-6.2); White Blood Count 6.4 K/mm3 (4.4-11.0)
[2020-07-19 07:11] LABS: Anion Gap 7 (5-15); BUN 19 mg/dL (7-18); BUN/Creat Ratio 23.2 RATIO (10-20); Calcium,Total 8.3 mg/dL (8.5-10.1); Chloride 107 mmol/L (98-107); Creatinine, Serum 0.82 mg/dL (0.70-1.30); EST Glomerular Filtration Rate 98 mL/min (>60); Est Glom Filt Rate - Afr Amer 118 mL/min (>60); Estimated Creatinine Clearance 59.01 ml/min; Glucose 77 mg/dL (74-106); Magnesium 1.7 mg/dL (1.6-2.6); Potassium 3.9 mmol/L (3.5-5.1); Sodium Level 139 mmol/L (136-145)
--- NOTE | 2020-07-19 11:40 | CASEMGMT ---
KARLOS LUZ Assessment: Face to Face with pt for initial transition planning/care coordination assessment. RN NATTY introduced self and role at [facility], pt voices understanding and consents to assessment. Pt is A/O x4 and answers all questions appropriately at this time. Pt lying in bed in no distress. Care providers, pharmacy, and demographics verified/updated. Admitting Dx: multilobular PNA, CP, Anemia PCP: [facility] Specialists: Pt denies having any specialists but states he is going to start cancer treatment soon in [place]. Preferred Pharmacy: [facility] Benef[facility]: yes LW/HPOA: Pt denies having LW/DPOA. LNOK: Arian Saldana, friend Living Arrangements: Pt lives alone in a single story apartment with no steps to enter. Pt states most of the time he is I in ADL's. Pt denies concerns at home. Transportation: Pt does not drive, states he calls a cab or friends transport him. Denies concerns with transportation. DME/HHC/SNF: Pt has grab bars at home, does not use any AD. Pt denies any previous HHC or SNF stays. Pt states no concerns with going home at time of dc. Pt states no further concerns/needs. CM to follow. Advised pt to ask CM if any further question/concerns/needs arise, voices understanding. Pt Goal: Home Plan: Home
--- NOTE | 2020-07-19 13:27 | PN.HOSP_ITS ---
Documented by User: Francesca Don NP, SEED BUYER-C 07/19/20 13:59 Subjective Subjective Patient seen and examined. Denies shortness of breath. States he has chest discomfort continuously which she contributes to his esophageal cancer. Denies significant cough. Denies fever, chills. Objective Data Objective Data Vital Signs: Vital Signs Temp Pulse Resp BP Pulse Ox 97.2 F L 67 18 117/75 96 07/19/20 09:25 07/19/20 11:00 07/19/20 09:25 07/19/20 09:25 07/19/20 09:25 Oxygen Delivery Method Room Air Weight: 114 lb 10.246 oz Body Mass Index (BMI) 20.5 Intake & Output: Intake and Output for Last 24 Hours 07/17/20 07/18/20 07/19/20 23:59 23:59 23:59 Intake Total 1000 / 1000 4081.67 / 4081.67 1025 / 1025 Output Total 600 / 900 1050 / 1050 Balance 1000 / 1000 3481.67 / 3181.67 -25 / 25 Lab / Micro Data Result Diagrams: 07/19/20 06:00 07/19/20 06:00 Labs: Laboratory Results - last 24 hr 07/19/20 07/19/20 06:00 06:00 WBC 6.4 RBC 3.15 L Hgb 9.7 L Hct 29.0 L MCV 92.1 MCH 30.8 MCHC 33.4 RDW Std Deviation 44.5 H RDW Coeff of Slime 13.2 Plt Count 425 MPV 8.5 Immature Gran % (Auto) 0.500 Neut % (Auto) 71.4 H Lymph % (Auto) 18.1 L [place] % (Auto) 8.0 Eos % (Auto) 1.4 Baso % (Auto) 0.6 Absolute Neuts (auto) 4.5 Absolute Lymphs (auto) 1.15 Nucleated RBC % 0 Sodium 139 Potassium 3.9 Chloride 107 Carbon Dioxide 25.0 Anion Gap 7 BUN 19 H Creatinine 0.82 Estim Creat Clear Calc 59.01 Est GFR (MDRD) Af Amer 118 Est GFR (MDRD) Non-Af 98 BUN/Creatinine Ratio 23.2 H Glucose 77 Calcium 8.3 L Magnesium 1.7 Micro: Microbiology 07/18/20 07:40 Sputum, Expectorated/Coughed Gram Stain - Final 07/18/20 07:40 Sputum, Expectorated/Coughed Respiratory Culture - Preliminary Appears to be normal respiratory nasir. Further studies to follow. 07/17/20 22:47 Urine, Clean Catch Urine Culture - Final Mixed Gram Pos & Gram Neg Org 07/18/20 04:45 Interface Orders Legionella Antigen - Final 07/18/20 04:45 Interface Orders Streptococcus pneumoniae Antigen (M - Final 07/17/20 22:55 Stool Stool Occult Blood (JENNIFER) - Final Physical Exam Const alert, oriented x3 and no apparent distress Orientation / Consciousness: awake, oriented to person, oriented to place and oriented to time HEENT normocephalic and moist oral mucous membranes Eyes PERRL, EOMs intact bilaterally and conjunctivae normal Neck no lymphadenopathy Resp normal respiratory effort Auscultation: diminished lung sounds and other Coarse breath sounds Cardio regular rate, regular rhythm and no murmurs Peripheral Pulses: pulses 2+ throughout GI normal to inspection, nondistended, normoactive bowel sounds, non-tender and non-distended Extremity normal to inspection Skin no rashes or lesions noted Lesions: no lesions Rashes: no rashes Trauma: no lacerations or abrasions Neuro CN's II-XII intact bilaterally, no focal motor deficits, no sensory deficits noted and deep tendon reflexes 2+ bilaterally Psych mental status grossly normal and affect normal Assessment & Plan Assessment/Plan (1) Pneumonia: QUALIFIERS: Aspiration pneumonia type: unspecified Laterality: right Lung location: unspecified part of lung Pneumonia type: aspiration pneumonia Qualified Code(s): J69.0 - Pneumonitis due to inhalation of food and vomit PLAN: 1. Multilobar pneumonia, concern for aspiration pneumonia-IV Zosyn. Albuterol DuoNeb aerosols. Oxygen stable on room air. Speech therapy consult. 2. Recent diagnosis of esophageal cancer with associated dysphagia-speech therapy consult. Patient underwent recent upper endoscopy at outside facility which showed mass in the lower third of the esophagus which was about 3 cm in length and extended to the EG junction, biopsy confirmed esophageal adenocarcinoma. Plan for outpatient follow-up with oncology. Patient was discharged on full liquid diet. Continue speech therapy assessment/recommendations. 3. Normocytic anemia-currently stable. Add PPI. Trend CBC. 4. History of tobacco use-encouraged cessation. Recently quit. 5. History of polysubstance abuse-currently admits to cannabis use. Occasional EtOH use. 6. Anxiety/depression-on fluoxetine. 7. BPH-not on regimen, monitor for retention. 8. Severe protein calorie malnutrition-dietitian consult. DVT prophylaxis- SCDs This patient was seen by AY Rodriguez under the supervision of Dr. Isabel. Documented by User: Dr. Nathalia Isabel DO 07/19/20 16:22 Subjective Subjective I agree with the above and the following is representation of my independent history and physical examination. Upon discussion with the patient, he reports that he has had dysphagi a/odynophagia for at least 6 months now. He reports that he had traveled to [place] in May to visit his brother for his birthday and he was seen at an urgent care at that time and was sent for admission. At that time he had 2 EGDs both which had biopsies 1 suggestive of adenocarcinoma and one that showed no definite evidence of malignancy. A stent was also placed at that time. He came home and had continued pain which he felt was related to his stent. He went to his primary care physician's office and they recommended admission to expedite work-up. It appears that he was admitted at [facility] from 07/10/2020 to 07/15/2020 and further work-up was done at that time with a repeat EGD and biopsy. 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 A CT of his chest was performed on 07/14/2020 that showed right hilar lymph node enlargement that was concerning for metastatic adenopathy, dilation of the esophagus to the level of the EG junction, COPD including a right apical bulla and hepatic cysts. It sounds like he wanted to get his oncologic treatment expedited and wanted to be followed here by [facility] oncology. At this time he is not been seen by oncology. Objective Data Lab / Micro Data Result Diagrams: 07/19/20 06:00 07/19/20 06:00 Physical Exam Const alert, oriented x3 and no apparent distress Constitutional Narrative: Thin -Filipino male, resting comfortably in bed, watching television, pleasant Exam Limitations: no limitations Nutritional Appearance: cachectic HEENT head/scalp atraumatic and moist oral mucous membranes Head and Scalp: normocephalic Mouth: oral and palatal mucosa normal Eyes PERRL, EOMs intact bilaterally and conjunctivae normal Neck no lymphadenopathy, supple, no JVD and no carotid bruits Resp normal respiratory effort, no retractions and no use of accessory muscles Resp Narrative: Diffusely diminished but clear Auscultation: Negative for crackles, rales, rhonchi or wheezes Cardio regular rate, regular rhythm, S1 normal heart sound, S2 normal heart sound, no murmurs, no rub, no gallops, no clicks and no JVD Extremity normal to inspection, full ROM and no clubbing, cyanosis or edema Peripheral Pulses: Yes pulses 2+ throughout Skin no rashes or lesions noted Neuro oriented x3, CN's II-XII intact bilaterally, moves all extremities, no focal motor deficits and no sensory deficits noted Sensorium / Orientation: awake, alert, oriented to person, oriented to place and oriented to time Speech: speech normal Visit Charges Inpatient E&M: 79545 Subs Hosp L2
[2020-07-19] MEDS: 0.9% Normal Saline 1,000 ML 100 ML IV (21:20)
[2020-07-19] MEDS: DiphenhydrAMINE 50 MG/ML Syringe 25 MG IV (22:10)
[2020-07-19] MEDS: 0.9% Saline Lock 10 ML Syringe IV (22:19)
[2020-07-20] VITALS (7 sets, daily range): BP systolic 99–111; BP diastolic 57–74; PULSE 55–77; RESP 16–18; TEMP 36.4–37.1; O2SAT 96–99
[2020-07-20] MEDS: 0.9% Normal Saline 1,000 ML 100 ML IV (06:33)
[2020-07-20 06:51] LABS: Absolute Lymphocyte Count 0.99 X10^3/uL (0.83-4.51); Absolute Neutrophil Count 4.5 X10^3/uL (2.0-7.7); Basophil# 0.04 X10^3/uL; Basophil% 0.7 % (0-1); Eosinophil# 0.05 X10^3/uL; Eosinophils% 0.8 % (0-5); Hematocrit 27.3 % (40-54); Hemoglobin 9.1 g/dL (13.0-16.5); Lymphocyte # 0.99 X10^3/ul (0.83-4.51); Lymphocyte % 16.5 % (19-41); Mean Corp Hgb Conc 33.3 g/dL (32-36); Mean Corpuscular Hgb 30.5 pg (27.0-32.0); Mean Corpuscular Volume 91.6 fL (80-94); Mean Platelet Vol. 8.6 fl (6.2-12.0); Monocyte# 0.43 X10^3/uL; Monocyte% 7.2 % (0-10); NRBC Flagged by Analyzer 0 % (0-5); Neutrophil # 4.46 X10^3/uL (2.7-7.7); Neutrophil % 74.1 % (47-70); Platelet Count 414 K/mm3 (150-450); RBC Distribution Width CV 12.5 % (11.6-14.6); RBC Distribution Width SD 42.2 fl (35.1-43.9); Red Blood Count 2.98 M/mm3 (4.6-6.2)
[2020-07-20 07:16] LABS: Anion Gap 8 (5-15); BUN 19 mg/dL (7-18); BUN/Creat Ratio 24.2 RATIO (10-20); Calcium,Total 8.4 mg/dL (8.5-10.1); Chloride 107 mmol/L (98-107); Creatinine, Serum 0.79 mg/dL (0.70-1.30); EST Glomerular Filtration Rate 103 mL/min (>60); Est Glom Filt Rate - Afr Amer 124 mL/min (>60); Estimated Creatinine Clearance 49.41 ml/min; Glucose 63 mg/dL (74-106); Potassium 3.8 mmol/L (3.5-5.1); Sodium Level 138 mmol/L (136-145)
--- NOTE | 2020-07-20 08:08 | ONC.CONSULT ---
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 He initially had stent placement but symptoms were exacerbated and stent was removed. He is able to comfortably get down Ensure, Boost and other forms of liquid nutrition. I discussed with him the necessary work-up to determine if he is a surgical candidate. He requires a PET scan. This will be arranged [facility] upon his discharge. He then will require thoracic surgery evaluation for the OR candidacy if he proves to have limited disease per PET scan. No current need for feeding tube. HPI Consult Data Date of Service:: 07/20/20 PCP / Referring Provider: Dr. Jacy Haney MD Attending: Dr. Nathalia Isabel DO Chief Complaint Chief Complaint: Esophagus cancer History of Present Illness History of Present Illness: The patient is a 74-year-old male with no evident past medical history who over the past year has been experiencing worsening dysphagia. He had new dentures fitted about a year to a year and a half ago. They did not fit right and he had trouble chewing food and because of the coarseness of the food he noticed dysphagia. However symptoms gradually worsened and this past April when he was visiting his brother in [place] he presented to [facility] and per his recollection underwent 2 endoscopies and was told he had cancer and had stent placement during the second endoscopy. After returning to [place], his symptoms worsened and he was admitted to [facility]. He underwent an EGD with stent repositioning on 07/12/2020. Mucosa of the duodenal bulb and descending portion appeared normal. The mucosa of the pyloric channel, antrum and body appeared normal in the stomach. Retroflexion demonstrated the distal end of the stent impinging into the stomach wall. There was an ulcerated area noted near the GE junction. In the esophagus, the stent was noted to be impinging into the gastric fold almost occluding the lumen of the stomach. The stent was pulled back about 4 cm and was then appeared to be patent. There was severely macerated mucosa noted at the GE junction. Biopsies were obtained. Pathology demonstrated adenocarcinoma with associated ulceration and granulation tissue. Patient continued to have pain and difficulty with swallowing. He underwent repeat EGD on 07/13/2020. The stent was removed. The esophagus was washed aggressively to remove mucus and get adequate views. There was a large ulcerated fungating friable necrotic mass noted from 35 to 40 cm with the worst area of ulceration/necrosis from 38 to 40 cm. The lumen was narrow but the scope could be easily traversed. Patient underwent CT of the chest on 07/15/2020. There were emphysematous bulla noted in the right lung apex measuring up to 5.3 x 4.5 cm. There were other changes of central lobar and paraseptal emphysema. The lungs were clear of discrete mass lesions. Linear strands in lower lung zones suggestive of discoid atelectasis was were observed. There was bilateral mild lower lung zone bronchiectasis. Trace bilateral pleural effusions were noted. There was an enlarged right hilar lymph node measuring 2.9 x 1.9 cm. There were no additional definite mediastinal, hilar lymph nodes enlarged. There was distention of the esophagus containing combination of fluid and gas to the level of the GE junction. There was transmural thickening esophagus at that level noted. There was no discrete or measurable soft tissue mass however. In the upper abdomen, multiple densities were noted in the liver. The largest appeared to be consistent with a cyst in the right lobe measuring 1.8 cm. The others were too small to accurately characterize. He was able to comfortably get down liquids and was therefore discharged with plans for outpatient PET scan and follow-up with medical oncology and radiation oncoPatient presented to the ED here with a complaint of chest pain and tachycardia. He was found to be hypotensive. He had also had a large bowel movement of black stool prior to presentation. Stools were guaiac negative in the ED. He received 1 unit red blood cell transfusion for hemoglobin of 8.3 g/dL. Chest x-ray suggested pneumonia so he was empirically treated for same. Admitted. This morning he endorses he feels better. He has not had recurrence of chest pain. He is able to get down liquids rather easily. He denies shortness of breath at rest. He is not requiring supplemental oxygen. He denies exertional chest pain or pressure. No lower extremity swelling or edema. He quit smoking about 3 weeks ago. He denies chronic cough and purulent sputum production. He denies nausea. No reflux. Advanced Directives Power of Road Manager: No Living Will[facility] Medical History (Updated 07/20/20 @ 08:[address] Andres Thakkar DO) Arthritis Asthma Biceps tendon rupture Cancer Chronic back pain Depression with anxiety Drug abuse in remission Enlarged prostate Former smoker Substance abuse Home Medications duloxetine 30 mg PO DAILY 07/18/20 [History Last Taken Unknown] trazodone 50 mg PO QHS 07/18/20 [History Last Taken Unknown] Allergy/AdvReac Type Severity Reaction Status Date / Time No Known Allergies Allergy Verified 04/15/19 13:09 Family History Father Cancer LUNG Arthritis Mother Arthritis Brother Arthritis Sister Arthritis Surgical History Jaw fracture Social History (Updated 07/18/20 @ 02:[address] Roya Glynn MD) household members: none Smoking Status: Former smoker quit date: 06/28/20 how long ago did patient quit smoking: Patient quit 06/28/20, smoked 3 black/mild cigar daily, prior 1/2 ppd cigaret alcohol intake: current alcohol intake frequency: 0-2 drinks per day Alcohol type: beer and wine substance use type: marijuana what type of physical activity do you participate in: bicycling frequency: 5-6 times per week Physical Exam Const alert and oriented x3 HEENT normocephalic Eyes no scleral icterus Neck no lymphadenopathy Lymph Lymphatic: no lymphadenopathy noted Resp Effort and Inspection: symmetric chest movement Auscultation: diminished lung sounds Cardio regular rhythm GI soft to palpation, non-tender and no masses Extremity no pedal edema Vital Signs: Vital Signs Temperature 98.6 F 07/20/20 06:28 Temperature Source Oral 07/20/20 06:28 Pulse Rate 55 L 07/20/20 07:17 Pulse Strength Normal (2+) 07/19/20 20:33 Respiratory Rate 18 07/20/20 06:28 Respiratory Effort Non-Labored 07/20/20 02:33 Respiratory Depth Normal 07/19/20 20:36 Respiratory Pattern Normal 07/19/20 20:36 Blood Pressure 111/70 07/20/20 06:28 Blood Pressure Mean 83 07/20/20 06:28 Blood Pressure Source Monitor 07/20/20 06:28 Blood Pressure Position Semi-Fowlers 07/20/20 06:28 Blood Pressure Location Left Arm 07/20/20 06:28 Pulse Ox 98 07/20/20 06:28 Oxygen Delivery Method Room Air 07/20/20 06:28 Laboratory Data: Microbiology 07/18/20 00:38 Blood Culture - Preliminary Blood Culture (Wb) - Right Hand No growth in 48 hours. 07/17/20 23:40 Blood Culture - Preliminary Blood Culture (Wb) - Left Forearm No growth in 48 hours. 07/18/20 07:40 Gram Stain - Final Sputum, Expectorated/Coughed Respiratory Culture - Preliminary Appears to be normal respiratory nasir. Further studies to follow. 07/17/20 22:47 Urine Culture - Final Urine, Clean Catch Mixed Gram Pos & Gram Neg Org 07/18/20 04:45 Legionella Antigen - Final Interface Orders Streptococcus pneumoniae Antigen (M - Final 07/17/20 22:55 Stool Occult Blood (JENNIFER) - Final Stool Laboratory Tests 07/20/20 07/20/20 Range/Units 06:15 06:15 WBC 6.0 (4.4-11.0) K/mm3 RBC 2.98 L (4.6-6.2) M/mm3 Hgb 9.1 L (13.0-16.5) g/dL Hct 27.3 L (40-54) % MCV 91.6 (80-94) fL MCH 30.5 (27.0-32.0) pg MCHC 33.3 (32-36) g/dL RDW Std Deviation 42.2 (35.1-43.9) fl RDW Coeff of Slime 12.5 (11.6-14.6) % Plt Count 414 (150-450) K/mm3 MPV 8.6 (6.2-12.0) fl Immature Gran % (Auto) 0.700 (0.0-0.9) % Neut % (Auto) 74.1 H (47-70) % Lymph % (Auto) 16.5 L (19-41) % [place] % (Auto) 7.2 (0-10) % Eos % (Auto) 0.8 (0-5) % Baso % (Auto) 0.7 (0-1) % Absolute Neuts (auto) 4.5 (2.0-7.7) X10^3/uL Absolute Lymphs (auto) 0.99 (0.83-4.51) X10^3/uL Nucleated RBC % 0 (0-5) % Sodium 138 (136-145) mmol/L Potassium 3.8 (3.5-5.1) mmol/L Chloride 107 (98-107) mmol/L Carbon Dioxide 23.0 (21.0-32.0) mmol/L Anion Gap 8 (5-15) BUN 19 H (7-18) mg/dL Creatinine 0.79 (0.70-1.30) mg/dL Estim Creat Clear Calc 49.41 ml/min Est GFR (MDRD) Af Amer 124 (>60) mL/min Est GFR (MDRD) Non-Af 103 (>60) mL/min BUN/Creatinine Ratio 24.2 H (10-20) RATIO Glucose 63 L (74-106) mg/dL Calcium 8.4 L (8.5-10.1) mg/dL Diagnostic Data: Diagnostic Data Chest X-Ray 07/17/20 22:07 IMPRESSION: Airspace consolidation in the right lower lobe concerning for infection. Electronically Signed: Gavin Alonzo MD at 22:59 EDT Tel , Service support , Chest/Abdomen/Pelvis CTA 07/18/20 00:03 IMPRESSION: Normal abdominal aorta and bilateral lower extremity run-off without a hemodynamically significant stenosis. Electronically Signed: Jazmine Zavaleta MD at 1:06 EDT , Service support ,
--- NOTE | 2020-07-20 09:00 | RAD_ITS ---
STUDY: AIR CONTRAST UPPER GI SERIES and esophagram. REASON FOR EXAM: Male, 74 years old. Dysphagia. Weight loss. FLUOROSCOPY TIME (if supplied): (44 seconds) minutes/seconds. 18 fluoroscopic images were obtained. TECHNIQUE: SINGLE CONTRAST AND AIR CONTRAST FLUOROSCOPIC IMAGES. COMPARISON: None. FINDINGS: The cervical esophagus demonstrates normal motility without aspiration. There is no stricture or extrinsic mass effect. No intraluminal polypoid mass is identified. There is circumferential narrowing of the distal esophagus at the level of the gastroesophageal junction. The mucosa is irregular. A neoplastic process should be ruled out. This extends into the gastric cardia. The patient ingest a 12 mm tablet of barium. The tablet is trapped at the gastroesophageal junction. RAD/Upper GI w/BA Swallow IMPRESSION: There is irregular circumferential narrowing at the gastroesophageal junction as described. A neoplastic process should BE ruled out. The ingested 12 mm tablet is trapped at the esophageal junction. Electronically Signed: Gordon Marcum MD at 12:12 EDT , Service support ,
[2020-07-20] MEDS: DULoxetine Hcl 30 MG Capsule PO (11:13)
[2020-07-20] MEDS: 0.9% Saline Lock 10 ML Syringe IV (11:15)
--- NOTE | 2020-07-20 12:29 | DCINST_ITS ---
Discharge Instructions Diet Discharge Diet: - (Easy to chew foods, seated upright 90 degrees during meals and for 30 to 60 minutes after. Thin liquids.) Activity Discharge Activity: Return to Normal Activity Dressing / Incision Call your doctor if you observe: Fever of 101 or Higher, Shortness of breath, Dizziness and Chest pain Follow Up Care Test Results: Test results from this visit will be discussed in further detail at your follow-up appointment, if applicable. Discharge Plan Admission Admit Date/Time: 07/18/20 02:50 Primary Reason for Your Visit: Dysphagia, dyspepsia Attending Provider: Nathalia Isabel Primary Care Provider: Jacy Haney Consulting Providers: Andres Thakkar Instructions Additional Instructions / Restrictions: You have a PET scan set up for Sunday 07/23 at [facility] and follow-up with Dr. Thakkar and Dr. Isabel 07/28/20. Discharge Orders/Prescriptions Prescriptions: New pantoprazole [Protonix] 40 mg tablet,delayed release (DR/EC) 40 mg PO DAILY Qty: 30 RF: 0 amoxicillin-pot clavulanate [Augmentin] 250-62.5 mg/5 mL suspension for reconstitution 10 ml PO TID 7 Days Qty: 210 RF: 0 Continued trazodone 50 mg tablet 50 mg PO QHS RF: 0 duloxetine 30 mg capsule,delayed release(DR/EC) 30 mg PO DAILY RF: 0 Referrals / Follow Up: Jacy Haney MD [Primary Care Provider] - In 1 Week Andres Thakkar DO [STAFF PHYSICIAN] - See Referral Note (As scheduled) Disposition Disposition (needs filled in before D/C Order can be placed): Home, self care
--- NOTE | 2020-07-20 13:01 | PCM.DC.SUM ---
Documented by User: Francesca Don NP, MARKETING COPYWRITER-C 07/20/20 13:05 Providers Date of Admission: 07/18/20 Date of Discharge: 07/20/20 Primary Care Physician: Dr. Jacy Haney MD Consultations 07/19/20 16:23 Consult: Oncology/Hematology Routine Consulting Provider: Andres Thakkar Reason for Consult: Esophageal cancer EMERGENT Consult: No MD Notified: Yes Date Notified:: 07/19/20 Time Notified: 16:23 Method of Notification: Verbal Reason For Visit: MULTILOBAR PNA, CP, ANEMIA Diagnosis Discharge Diagnosis (1) Pneumonia: Status: Acute Code(s): J18.9 - Pneumonia, unspecified organism Qualifiers: Aspiration pneumonia type: unspecified Laterality: right Lung location: unspecified part of lung Pneumonia type: aspiration pneumonia Qualified Code(s): J69.0 - Pneumonitis due to inhalation of food and vomit (2) Esophagus cancer: Status: Acute Code(s): C15.9 - Malignant neoplasm of esophagus, unspecified Medications at Discharge Home Medications duloxetine 30 mg PO DAILY 07/18/20 trazodone 50 mg PO QHS 07/18/20 amoxicillin-pot clavulanate [Augmentin] 10 ml PO TID 7 Days #210 ml 07/20/20 pantoprazole [Protonix] 40 mg PO DAILY #30 tab 07/20/20 Hospital Course Operations None Procedures - Summary of Care Provided Minutes Spent on Discharge: 35 Hospital Course: Patient is a 74-year-old male admitted 07/18/2020 due to dyspepsia, dysphagia. 1. Multilobar pneumonia, concern for aspiration pneumonia secondary to esophageal mass/dysphagia-IV Zosyn during admission, transition to oral Augmentin at discharge to complete course. Oxygen stable on room air. Speech therapy consult. Continue dietary modifications per speech therapy recommendations. Continue outpatient follow-up with speech therapy. 2. Recent diagnosis of esophageal cancer with associated dysphagia-speech therapy consult. Patient underwent recent upper endoscopy at outside facility which showed mass in the lower third of the esophagus which was about 3 cm in length and extended to the EG junction, biopsy confirmed esophageal adenocarcinoma. Continue dietary modifications per speech therapy recommendations. Oncology, Dr. Thakkar consulted during admission. He will have PET scan 07/23 and follow-up with oncology 07/28/20. 3. Normocytic anemia-currently stable. 4. History of tobacco use-encouraged cessation. Recently quit. 5. History of polysubstance abuse-currently admits to cannabis use. Occasional EtOH use. 6. Anxiety/depression-on fluoxetine. 7. BPH-not on regimen, monitor for retention. 8. Severe protein calorie malnutrition-dietitian consult. Physical Exam Const alert, oriented x3 and no apparent distress Orientation / Consciousness: awake, oriented to person, oriented to place and oriented to time HEENT normocephalic and moist oral mucous membranes Eyes PERRL, EOMs intact bilaterally and conjunctivae normal Neck no lymphadenopathy Resp normal respiratory effort Auscultation: diminished lung sounds and other Coarse breath sounds Cardio regular rate, regular rhythm and no murmurs Peripheral Pulses: pulses 2+ throughout GI normal to inspection, nondistended, normoactive bowel sounds, non-tender and non-distended Extremity normal to inspection Skin no rashes or lesions noted Lesions: no lesions Rashes: no rashes Trauma: no lacerations or abrasions Neuro CN's II-XII intact bilaterally, no focal motor deficits, no sensory deficits noted and deep tendon reflexes 2+ bilaterally Psych mental status grossly normal and affect normal Patient seen and examined prior to discharge. Physical assessment as noted above. Patient is stable for discharge with follow up recommendations as noted above. This patient was seen by YA Rodriguez under the supervision of Dr. Isabel. ABG / Lab / Microbiology Data Result Diagrams: 07/20/20 06:15 07/20/20 06:15 Laboratory: Laboratory Results - last 24 hr 07/20/20 07/20/20 06:15 06:15 WBC 6.0 RBC 2.98 L Hgb 9.1 L Hct 27.3 L MCV 91.6 MCH 30.5 MCHC 33.3 RDW Std Deviation 42.2 RDW Coeff of Slime 12.5 Plt Count 414 MPV 8.6 Immature Gran % (Auto) 0.700 Neut % (Auto) 74.1 H Lymph % (Auto) 16.5 L [place] % (Auto) 7.2 Eos % (Auto) 0.8 Baso % (Auto) 0.7 Absolute Neuts (auto) 4.5 Absolute Lymphs (auto) 0.99 Nucleated RBC % 0 Sodium 138 Potassium 3.8 Chloride 107 Carbon Dioxide 23.0 Anion Gap 8 BUN 19 H Creatinine 0.79 Estim Creat Clear Calc 49.41 Est GFR (MDRD) Af Amer 124 Est GFR (MDRD) Non-Af 103 BUN/Creatinine Ratio 24.2 H Glucose 63 L Calcium 8.4 L Microbiology: Microbiology 07/18/20 07:40 Gram Stain - Final Sputum, Expectorated/Coughed Respiratory Culture - Final 07/18/20 00:38 Blood Culture - Preliminary Blood Culture (Wb) - Right Hand No growth in 48 hours. 07/17/20 23:40 Blood Culture - Preliminary Blood Culture (Wb) - Left Forearm No growth in 48 hours. 07/17/20 22:47 Urine Culture - Final Urine, Clean Catch Mixed Gram Pos & Gram Neg Org Microbiology 07/18/20 07:40 Sputum, Expectorated/Coughed Gram Stain - Final 07/18/20 07:40 Sputum, Expectorated/Coughed Respiratory Culture - Final 07/18/20 00:38 Blood Culture (Wb) - Right Hand Blood Culture - Preliminary No growth in 48 hours. 07/17/20 23:40 Blood Culture (Wb) - Left Forearm Blood Culture - Preliminary No growth in 48 hours. 07/17/20 22:47 Urine, Clean Catch Urine Culture - Final Mixed Gram Pos & Gram Neg Org 07/18/20 04:45 Interface Orders Legionella Antigen - Final 07/18/20 04:45 Interface Orders Streptococcus pneumoniae Antigen (M - Final 07/17/20 22:55 Stool Stool Occult Blood (JENNIFER) - Final Radiography Diagnostic Testing: Radiology Impression Upper GI/Barium Swallow X-Ray 07/20/20 09:00 IMPRESSION: There is irregular circumferential narrowing at the gastroesophageal junction as described. A neoplastic process should BE ruled out. The ingested 12 mm tablet is trapped at the esophageal junction. Electronically Signed: Gordon Marcum MD at 12:12 EDT , Service support , D/C Instructions Discharge Diet: - (Easy to chew foods, seated upright 90 degrees during meals and for 30 to 60 minutes after. Thin liquids.) Discharge Activity: Return to Normal Activity Call your doctor if you observe: Fever of 101 or Higher, Shortness of breath, Dizziness and Chest pain Meaningful Use Info Meaningful Use Diagnoses (Choose all that apply): None applicable Discharge Plan Admission Admit Date/Time: 07/18/20 02:50 Primary Reason for Your Visit: Dysphagia, dyspepsia Attending Provider: Nathalia Isabel Primary Care Provider: Jacy Haney Consulting Providers: Andres Thakkar Instructions Additional Instructions / Restrictions: You have a PET scan set up for Sunday 07/23 at [facility] and follow-up with Dr. Thakkar and Dr. Isabel 07/28/20. Discharge Orders/Prescriptions Prescriptions: New pantoprazole [Protonix] 40 mg tablet,delayed release (DR/EC) 40 mg PO DAILY Qty: 30 RF: 0 amoxicillin-pot clavulanate [Augmentin] 250-62.5 mg/5 mL suspension for reconstitution 10 ml PO TID 7 Days Qty: 210 RF: 0 Continued trazodone 50 mg tablet 50 mg PO QHS RF: 0 duloxetine 30 mg capsule,delayed release(DR/EC) 30 mg PO DAILY RF: 0 Referrals / Follow Up: Jacy Haney MD [Primary Care Provider] - In 1 Week Andres Thakkar DO [STAFF PHYSICIAN] - See Referral Note (As scheduled) Disposition Disposition (needs filled in before D/C Order can be placed): Home Health Service Documented by User: Dr. Nathalia Isabel DO 07/20/20 14:53 Providers Date of Admission: 07/18/20 Reason For Visit: MULTILOBAR PNA, CP, ANEMIA Medications at Discharge Home Medications duloxetine 30 mg PO DAILY 07/18/20 trazodone 50 mg PO QHS 07/18/20 amoxicillin-pot clavulanate [Augmentin] 10 ml PO TID 7 Days #210 ml 07/20/20 pantoprazole [Protonix] 40 mg PO DAILY #30 tab 07/20/20 Hospital Course Operations None Procedures Blood transfusion and - (MBS) Summary of Care Provided Minutes Spent on Discharge: 41 Hospital Course: Mr. Gaming is a 74-year-old male who presented to emergency department on 07/17/2020 secondary to dyspepsia and dysphagia. He had a recent admission at [facility] in which she had esophageal stent removal and biopsies which showed esophageal adenocarcinoma at the GE junction. He left AMA from there on 07/15/2020. Per discussion with the patient he started having trouble swallowing approximately 6 or so months ago. In May he was visiting his brother for his birthday and had such significant issues he saw an urgent care physician who sent him to the emergency department in [place]. He was admitted to the hospital there where he had 2 EGDs done and a stent placement; those EGDs resulted in inconclusive biopsy diagnoses. His chest x-ray done in the emergency department showed concern for left lower lobe infiltrate and a follow-up CT showed a right lower lobe and right middle lobe pneumonia with right hilar lymphadenopathy. He was started on IV antibiotics and speech therapy was consulted for concerns of dysphagia. He was transfused 1 unit of packed red blood cells in the emergency department for anemia and his hemoglobins have remained stable since that time. A modified barium swallow was performed and dietary modifications were made. He was seen by Dr. Thakkar from oncology and an outpatient PET scan has been scheduled for this coming Sunday. Once his PET scan is performed and his disease has been staged further referrals or treatment can be initiated. Mr. Gaming is tolerating liquid diet without issue and he is tolerating supplements well. We will discharge him home to complete his antibiotic course with liquid Augmentin. He is to follow-up with Dr. Thakkar as scheduled and his primary care physician in 1 week. 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 Odynophagia Normocytic anemia Severe malnutrition BPH History of polysubstance abuse History of tobacco abuse History of alcohol abuse Chronic pain Physical Exam Const alert, oriented x3 and no apparent distress Constitutional Narrative: Thin -[place] male, resting comfortably in bed, watching television, extremely pleasant General Appearance: cooperative and well kempt Orientation / Consciousness: awake, oriented to person, oriented to place and oriented to time Exam Limitations: no limitations Nutritional Appearance: cachectic HEENT normocephalic, head/scalp atraumatic and moist oral mucous membranes Eyes PERRL, EOMs intact bilaterally and conjunctivae normal Neck no lymphadenopathy, supple, no JVD and no carotid bruits Resp normal respiratory effort, no retractions and no use of accessory muscles Resp Narrative: Diffusely diminished but clear Auscultation: diminished lung sounds and other Coarse breath sounds ; Negative for crackles, rales, rhonchi or wheezes Cardio regular rate, regular rhythm, S1 normal heart sound, S2 normal heart sound, no murmurs, no rub, no gallops, no clicks and no JVD Peripheral Pulses: pulses 2+ throughout GI normal to inspection, nondistended, normoactive bowel sounds, non-tender and non-distended Extremity normal to inspection, full ROM and no clubbing, cyanosis or edema Skin no rashes or lesions noted Lesions: no lesions Rashes: no rashes Trauma: no lacerations or abrasions Neuro oriented x3, CN's II-XII intact bilaterally, moves all extremities, no focal motor deficits, no sensory deficits noted and deep tendon reflexes 2+ bilaterally Sensorium / Orientation: awake, alert, oriented to person, oriented to place and oriented to time Speech: speech normal Psych mental status grossly normal and affect normal ABG / Lab / Microbiology Data Result Diagrams: 07/20/20 06:15 07/20/20 06:15 Discharge Plan Admission Admit Date/Time: 07/18/20 02:50 Primary Reason for Your Visit: Dysphagia, dyspepsia Attending Provider: Nathalia Isabel Primary Care Provider: Jacy Haney Consulting Providers: Andres Thakkar Instructions Additional Instructions / Restrictions: You have a PET scan set up for Sunday 07/23 at [facility] and follow-up with Dr. Thakkar and Dr. Isabel 07/28/20. Discharge Orders/Prescriptions Prescriptions: New pantoprazole [Protonix] 40 mg tablet,delayed release (DR/EC) 40 mg PO DAILY Qty: 30 RF: 0 amoxicillin-pot clavulanate [Augmentin] 250-62.5 mg/5 mL suspension for reconstitution 10 ml PO TID 7 Days Qty: 210 RF: 0 Continued trazodone 50 mg tablet 50 mg PO QHS RF: 0 duloxetine 30 mg capsule,delayed release(DR/EC) 30 mg PO DAILY RF: 0 Referrals / Follow Up: Jacy Haney MD [Primary Care Provider] - In 1 Week Andres Thakkar DO [STAFF PHYSICIAN] - See Referral Note (As scheduled) Disposition Disposition (needs filled in before D/C Order can be placed): Home Health Service Visit Charges Inpatient E&M: 13546 Disch Hosp
--- NOTE | 2020-07-20 14:36 | CASEMGMT ---
KHADIJAH faxed a referral to [facility] for the Passport program for patient. Danika Peña BUCKET TURNERPorfirio MOORE
--- NOTE | 2020-07-20 14:45 | CASEMGMT ---
KARLOS LUZ made aware per therapy that pt would benefit from support at home. KARLOS LUZ in to pt room to discuss HHC. Pt is agreeable to HHC. Patient was provided a list of HHC providers including quality and resource use data and consistent with the patient?s preferred geographic region, medical needs, and insurance network. The patient?s preferred provider [facility]. Pt states he would be interested also in someone to assist him with bathing. Pt states he was an independent person and it will take some time for him to adjust to needing some assistance. Pt became tearful during conversation. He states he did have food stamps through [employer] but when he moved, he didn't complete a form so it stopped. He states he does not know how to navigate these items online. Pt also was not aware that he could get transportation through [employer]. KARLOS LUZ spoke with KHADIJAH Garnica who gave info to give to pt on [facility]. She will make a referral. Pt aware that he will receive a call from them to come out to do an assessment. Pt called his friend while CM in room as he stated she does some HH work. She is an independent provider. Made pt aware he would need to follow up with [facility] to see if she could care for him and be paid. TC to [facility], spoke with Khushi, referral made for PT, OT, [place] and [employer]. Pt aware of acceptance and denied further needs.
== END 2020-07-20 15:14 | disposition home health service (06) | DRG 178 ==
LOC: ED 22:50 → PCU 07-18 03:52
PROVIDERS: Internal Medicine; Admitting Provider Family Medicine; Emergency Provider Student in an Organized Health Care Education/Training Program; PCP Internal Medicine; Visit Provider Internal Medicine
DX: J69.0 Pneumonitis due to inhalation of food and vomit (principal); C15.5 Malignant neoplasm of lower third of esophagus; D63.8 Anemia in other chronic diseases classified elsewhere; F12.90 Cannabis use, unspecified, uncomplicated; D64.9 Anemia, unspecified; F32.9 Major depressive disorder, single episode, unspecified; I95.9 Hypotension, unspecified; F41.9 Anxiety disorder, unspecified; N40.0 Benign prostatic hyperplasia without lower urinary tract symptoms; R13.10 Dysphagia, unspecified; Z87.891 Personal history of nicotine dependence; Z68.20 Body mass index [BMI] 20.0-20.9, adult
CPT/HCPCS: 36415; 71045; 71275; 74174; 74246; 80048; 80053; 80076; 80307; 81001; 82077; 82274; 83605; 83735; 84100; 84484; 85025; 85610; 86850; 86900; 86901; 86920; 86922; 87040; 87070; 87086; 87088; 87205; 87449; 87641; 92526; 92610; 93005; 97162; 97802; 97803; 99251; 99285; J7030; J7040; J7050; P9016; Q9967; A4216; G0463

== ENCOUNTER 2020-07-25 12:05 | Emergency (ER) | payer MEDICARE, MEDICAID, SELFPAY ==
[2020-07-18 11:38] VITALS: BMI 20.5
[2020-07-25] VITALS (7 sets, daily range): BP systolic 88–109; BP diastolic 5–75; PULSE 65–75; RESP 18–22; TEMP 37.1–37.4; O2SAT 96–100; BMI 19.3
--- NOTE | 2020-07-25 12:34 | EKG12_ITS ---
Test Reason : CP Blood Pressure : / mmHG Vent. Rate : 066 BPM Atrial Rate : 066 BPM P-R Int : 162 ms QRS Dur : 070 ms QT Int : 380 ms P-R-T Axes : 052 060 053 degrees QTc Int : 398 ms Normal sinus rhythm Low voltage QRS (Limb Leads) Septal infarct , age undetermined Abnormal ECG Confirmed by VANCE LEUNG, TRISTIN ([id number]), purchasing expeditor SLY GALVAN ([id number]) on 07/28/2020 12:46:04 PM Referred By: SCARLETT/TONA Confirmed By:TRISTIN WOODARD MD
--- NOTE | 2020-07-25 12:34 | RAD_ITS ---
STUDY: X-RAY CHEST REASON FOR EXAM: Male, 74 years old. Chest pain TECHNIQUE: Single AP portable view of the chest. COMPARISON: 07/17/2020. FINDINGS: Right basilar infiltrates slightly improved since the previous exam. There is no demonstrated pleural abnormality. Normal size heart. Normal mediastinum and charla. Normal visualized pulmonary arteries. There is atherosclerotic tortuosity of the aortic arch and descending thoracic aorta. The osseous structures are unchanged. Contrast in the colon from previous contrast study is seen. RAD/Chest 1 View (Portable) IMPRESSION: Improved right basilar infiltrate. Electronically Signed: Orlando Lewis MD at 13:30 EDT Tel , Service support ,
--- NOTE | 2020-07-25 12:35 | EDS_ITS ---
HPI History of Present Illness Chief Complaint: Chest Pain Detail of Chief Complaint: Chest tightness that started this morning around 9:30 AM Informant: patient Onset/Context/Timing Current Severity: 03/07 Narrative Narrative: Patient presents with some chest tightness that started around 9:30 AM. He complains of some mild shortness of breath. He had a little bit of a cough this morning and brought up small amount of dark sputum. Also he is complaining of some ankle swelling. Patient denies fever. He denies recent travel or surgery. He does have history of esophageal cancer. Patient has no heart history. Prior Similar Symptoms: No PFSH PFSH Medical History (Updated 07/25/20 @ 15:[address] Hayde Arce, DO) Arthritis Asthma Biceps tendon rupture Cancer Chronic back pain Depression with anxiety Drug abuse in remission Enlarged prostate Former smoker Substance abuse Home Medications duloxetine 30 mg PO DAILY 07/18/20 [History Last Taken Unknown] trazodone 50 mg PO QHS 07/18/20 [History Last Taken Unknown] amoxicillin-pot clavulanate [Augmentin] 10 ml PO TID 7 Days #210 ml 07/20/20 [Rx Last Taken Unknown] pantoprazole [Protonix] 40 mg PO DAILY #30 tab 07/20/20 [Rx Last Taken Unknown] sucralfate [Carafate] 1 g PO ACHS 07/25/20 [History Last Taken Unknown] Allergy/AdvReac Type Severity Reaction Status Date / Time No Known Allergies Allergy Verified 07/25/20 12:08 Family History Father Cancer LUNG Arthritis Mother Arthritis Brother Arthritis Sister Arthritis Surgical History Jaw fracture Social History (Updated 07/18/20 @ 02:[address] Roya Glynn MD) household members: none Smoking Status: Former smoker quit date: 06/28/20 how long ago did patient quit smoking: Patient quit 06/28/20, smoked 3 black/mild cigar daily, prior 1/2 ppd cigaret alcohol intake: current alcohol intake frequency: 0-2 drinks per day Alcohol type: beer and wine substance use type: marijuana what type of physical activity do you participate in: bicycling frequency: 5-6 times per week ROS ROS ED Review of Systems ROS Unobtainable: other Constitutional Constitutional ED: Reports lethargy; Denies chills, fever(s), sweats or weight loss Eyes Eyes: Denies blurry vision, change in vision or diplopia ENT ENT ED: Denies rhinorrhea or sore throat Cardiovascular Cardiovascular: Reports chest pain and racing heartbeat; Denies orthopnea Respiratory/Chest Respiratory/Chest: Reports dyspnea and dyspnea on exertion; Denies cough, orthopnea or sputum Gastrointestinal Gastrointestinal: Denies abdominal pain, diarrhea, nausea or vomiting Genitourinary Genitourinary ED: Denies dysuria, hematuria or urinary frequency Musculoskeletal Musculoskeletal: Denies arthralgias, back pain, myalgias or neck pain Integumentary Denies abscess, Abrasions or rash Neurologic Neurologic: Denies headache(s) or weakness Psychiatric Psychiatric: Denies anxiety, depression or suicidal thoughts Endocrine Endocrinology: Denies polydipsia, polyphagia or polyuria Hematologic/Lymphatic Hematologic/Lymphatic: Denies easy bleeding, easy bruising or lymphadenopathy Allergic/Immunologic Allergic/Immunologic ED: Denies mouth swelling, tongue swelling or urticaria EXAM Physical Exam Const Vital Signs: 07/25/20 12:06 07/25/20 13:08 07/25/20 13:13 Temperature 98.7 F Temperature Source Oral Pulse Rate 70 65 65 Respiratory Rate 18 22 H Blood Pressure 105/67 98/62 98/52 L Blood Pressure Mean 79 67 Pulse Ox 96 100 Oxygen Delivery Method Room Air Room Air 07/25/20 14:22 07/25/20 14:30 07/25/20 14:58 Temperature 99.4 F H Temperature Source Oral Pulse Rate 75 75 Respiratory Rate 18 18 Blood Pressure 88/62 L 98/65 109/75 Blood Pressure Mean 70 76 86 Pulse Ox 99 100 Oxygen Delivery Method Room Air Room Air Positive well nourished and well developed General Appearance ED: well developed and NAD HEENT Reports TM's clear and moist mucous membranes normocephalic and atraumatic; Negative for trauma or tenderness Tympanic Membrane ED: Yes TM's clear Eyes PERRL and EOMs intact bilaterally General Eye ED: Negative for pale conjunctiva or scleral icterus Neck no lymphadenopathy, supple and no JVD General: Negative for tenderness Chest Wall inspection of chest normal and palpation of chest normal Chest: Negative for tenderness Resp normal respiratory effort and clear to auscultation bilaterally Effort and Inspection: Negative for respiratory distress or pain with movement Auscultation: Negative for rhonchi, wheezes or diminished lung sounds Cardio regular rate, regular rhythm, S1 normal heart sound, S2 normal heart sound and no murmurs Peripheral Pulses: pulses 2+ throughout GI normal to inspection, nondistended, normoactive bowel sounds, soft to palpation, non-tender, non-distended and no masses Back/Spine no CVA tenderness and no thoracic nor lumbar tenderness Extremity normal to inspection Extremity Narrative: Edema seems to be located to both ankles. Normal pulses. No evidence of cellulitis. General Extremety ED: Yes edema General Extremity: edema Neuro oriented x3, CN's II-XII intact bilaterally, no sensory deficits noted and gait normal Sensorium / Orientation: awake, alert, oriented to person, oriented to place and oriented to time Motor Exam: strength 5/5 throughout and strength abnormal Psych mental status grossly normal Skin no rashes or lesions noted and no wounds Heart Score History: Moderately Suspicious ECG: Nonspecific Repolarization Age: >/= 65 years Risk Factors: 1 or 2 Risk Factors Troponin: </= Normal Limit Score: 5 MDM MDM MDM Narrative Medical decision making narrative: Patient presented with chest pain that was pressure-like and retrosternal. It was minimal on arrival to the ER. The ambu eric did give patient aspirin and sublingual nitro. He does have history of esophageal cancer. Case was discussed with hospitalist will evaluate patient. Patient was seen by hospitalist Dr. Sima Isabel who recommended discharge to home as patient's had recent admission with multiple negative troponins and it was felt that his pain likely is noncardiac and more likely due to his esophageal tumor. Patient also states the pain started after a coughing fit. Lab Data Labs: Laboratory Results - last 24 hr 07/25/20 07/25/20 07/25/20 12:20 12:20 12:20 WBC 9.8 RBC 3.23 L Hgb 9.8 L Hct 31.1 L MCV 96.3 H MCH 30.3 MCHC 31.5 L RDW Std Deviation 45.7 H RDW Coeff of Slime 13.0 Plt Count 570 H MPV 8.6 Immature Gran % (Auto) 0.300 Neut % (Auto) 83.5 H Lymph % (Auto) 11.3 L [place] % (Auto) 4.2 Eos % (Auto) 0.2 Baso % (Auto) 0.5 Absolute Neuts (auto) 8.1 H Absolute Lymphs (auto) 1.10 Nucleated RBC % 0 D-Dimer Quant (PE/DVT) 2.34 H* Sodium 139 Potassium 4.0 Chloride 104 Carbon Dioxide 30.0 Anion Gap 5 BUN 9 Creatinine 0.94 Estim Creat Clear Calc 49.10 Est GFR (MDRD) Af Amer 101 Est GFR (MDRD) Non-Af 84 BUN/Creatinine Ratio 9.6 L Glucose 146 H Calcium 8.8 Troponin I < 0.015 B-Natriuretic Peptide 07/25/20 12:20 WBC RBC Hgb Hct MCV MCH MCHC RDW Std Deviation RDW Coeff of Slime Plt Count MPV Immature Gran % (Auto) Neut % (Auto) Lymph % (Auto) [place] % (Auto) Eos % (Auto) Baso % (Auto) Absolute Neuts (auto) Absolute Lymphs (auto) Nucleated RBC % D-Dimer Quant (PE/DVT) Sodium Potassium Chloride Carbon Dioxide Anion Gap BUN Creatinine Estim Creat Clear Calc Est GFR (MDRD) Af Amer Est GFR (MDRD) Non-Af BUN/Creatinine Ratio Glucose Calcium Troponin I B-Natriuretic Peptide 71.8 Radiography Diagnostic Testing: Radiology Impression Chest X-Ray 07/25/20 12:34 IMPRESSION: Improved right basilar infiltrate. Electronically Signed: Orlando Lewis MD at 13:30 EDT Tel , Service support , Chest CTA 07/25/20 13:[address]: [address] evidence of pulmonary embolism. 2. Improved right lower lobe pneumonia. Electronically Signed: Orlando Escobar MD at 14:08 EDT Tel , Service support , 1 view chest x-ray obtained showed increased markings in both lower lobes as interpreted by myself. Radiology thought he had improved right basilar infiltrate. EKG Initial EKG: Comments: EKG obtained showed sinus rhythm with a ventricular rate of 66 bpm with old septal infarct Prior EKG tracings: available for review Prior: Unchanged Discharge Plan Triage Chief Complaint: Chest Pain ED Provider: Hayde Arce Dx/Rx/DC Orders Clinical Impression: Chest pain Instructions: ED Chest Pain, Uncertain Cause Prescriptions: No Action trazodone 50 mg tablet 50 mg PO QHS RF: 0 duloxetine 30 mg capsule,delayed release(DR/EC) 30 mg PO DAILY RF: 0 pantoprazole [Protonix] 40 mg tablet,delayed release (DR/EC) 40 mg PO DAILY Qty: 30 RF: 0 amoxicillin-pot clavulanate [Augmentin] 250-62.5 mg/5 mL suspension for reconstitution 10 ml PO TID 7 Days Qty: 210 RF: 0 sucralfate [Carafate] 1 gram Tablet 1 g PO ACHS RF: 0 Primary Care Provider: Jacy Haney Referrals: Jacy Haney MD [Primary Care Provider] - 3-5 Days Activity Restrictions/Additional Instructions: They will contact you about having an ultrasound of your lower extremities tomorrow. Disposition Disposition: Home, self care
[2020-07-25 12:50] LABS: Absolute Neutrophil Count 8.1 X10^3/uL (2.0-7.7); Basophil# 0.05 X10^3/uL; Basophil% 0.5 % (0-1); Eosinophil# 0.02 X10^3/uL; Eosinophils% 0.2 % (0-5); Hematocrit 31.1 % (40-54); Hemoglobin 9.8 g/dL (13.0-16.5); Lymphocyte % 11.3 % (19-41); Mean Corp Hgb Conc 31.5 g/dL (32-36); Mean Corpuscular Hgb 30.3 pg (27.0-32.0); Mean Corpuscular Volume 96.3 fL (80-94); Mean Platelet Vol. 8.6 fl (6.2-12.0); Monocyte# 0.41 X10^3/uL; Monocyte% 4.2 % (0-10); NRBC Flagged by Analyzer 0 % (0-5); Neutrophil # 8.14 X10^3/uL (2.7-7.7); Neutrophil % 83.5 % (47-70); Platelet Count 570 K/mm3 (150-450); RBC Distribution Width SD 45.7 fl (35.1-43.9); Red Blood Count 3.23 M/mm3 (4.6-6.2); White Blood Count 9.8 K/mm3 (4.4-11.0)
[2020-07-25] MEDS: Nitroglycerin Oint 1 INCH PACKET TRANSDERM. (13:08)
[2020-07-25 13:12] LABS: D-Dimer Quantitative (DVT/PE) 2.34 FEU/ug/m (0.27-0.49)
[2020-07-25 13:13] LABS: Anion Gap 5 (5-15); BUN 9 mg/dL (7-18); BUN/Creat Ratio 9.6 RATIO (10-20); Calcium,Total 8.8 mg/dL (8.5-10.1); Chloride 104 mmol/L (98-107); Creatinine, Serum 0.94 mg/dL (0.70-1.30); EST Glomerular Filtration Rate 84 mL/min (>60); Est Glom Filt Rate - Afr Amer 101 mL/min (>60); Glucose 146 mg/dL (74-106); Sodium Level 139 mmol/L (136-145)
[2020-07-25 13:14] LABS: BNP,B-Type NATRIURETIC PEPTIDE 71.8 pg/mL (0-100)
--- NOTE | 2020-07-25 13:19 | CT_ITS ---
STUDY: CTA CHEST REASON FOR EXAM: Male, 74 years old. chest pain, elevated d-dimer RADIATION DOSAGE (If Supplied By Facility): CTDIvol = ( 10.95 ) mGy, DLP = ( 249.30 ) mGycm TECHNIQUE: The examination was performed with the intravenous administration of IV 75mL Isovue-370. Post-processing of the angiographic images was performed, with multiplanar reformation and 3D reconstruction. Individualized dose optimization techniques were used for this CT. COMPARISON: Chest x-ray earlier today, chest CT 07/18/2020 FINDINGS: Markedly decrease in subcutaneous fat consistent with cachexia. Normal enhancement of the main pulmonary artery and right and left pulmonary arteries. Normal enhancement of the bilateral peripheral pulmonary arteries. There is no demonstrated pulmonary embolism. Normal thoracic aorta and visualized great vessels. There is no demonstrated aortic dissection. Normal heart and pericardium. Normal mediastinum. Normal hilar regions. Normal visualized trachea and bronchi. The lungs are well expanded. Mild emphysema with a large bulla in the apex of the right lung. Further decrease in the ill-defined nodules and groundglass density in the right lower lobe consistent with improved pneumonia. Normal pleura. Normal chest wall structures. Normal osseous structures. Normal visualized upper abdomen. CT/CTA Chest W/WO Contrast IMPRESSION: 1. No CT evidence of pulmonary embolism. 2. Improved right lower lobe pneumonia. Electronically Signed: Orlando Escobar MD at 14:08 EDT Tel , Service support ,
--- NOTE | 2020-07-25 13:20 | ED.RN ---
324 mg of aspirin held due to dose given by EMS. farrukh simmons, rn [id number]
== END 2020-07-25 15:33 | disposition home or self-care (01) ==
PROVIDERS: Emergency Provider Emergency Medicine; PCP Internal Medicine
DX: R07.9 Chest pain, unspecified (principal); R06.02 Shortness of breath; M19.90 Unspecified osteoarthritis, unspecified site; J45.909 Unspecified asthma, uncomplicated; F41.9 Anxiety disorder, unspecified; F32.9 Major depressive disorder, single episode, unspecified; Z87.891 Personal history of nicotine dependence; Z79.899 Other long term (current) drug therapy
CPT/HCPCS: 71045; 71275; 80048; 83880; 84484; 85025; 85379; 93005; 99285; Q9967

== ENCOUNTER → 2020-07-26 12:18 | Outpatient (CLI) | payer MEDICARE, MEDICAID, SELFPAY ==
[2020-07-25 12:06] VITALS: BMI 19.3
--- NOTE | 2020-07-26 12:27 | VDLE_ITS ---
Reason For Study: Swelling RIGHT LEFT GSV is normal. GSV is normal. CFV is compressible, spontaneous, phasic, CFV is compressible, spontaneous, phasic, competent and demonstrates normal competent, and demonstrates normal augmentation. augmentation. FV is compressible, spontaneous, phasic, FV is compressible, spontaneous, phasic, competent and demonstrates normal competent and demonstrates normal augmentation. augmentation. POP V is compressible, spontaneous, phasic, POP V is compressible, spontaneous, phasic, competent and demonstrates normal competent and demonstrates normal augmentation. augmentation. T/P Trunk is compressible. T/P Trunk is compressible. PTV is compressible. PTV is compressible. RT PerV is compressible. LT PerV is compressible. Hypoechoic, Non vascular structure noted Rt distal, medial thigh measuring 2.62cm x 1.08cm. Procedure This is a venous duplex using B-mode, color flow and spectral Doppler. Exam performed in department. A preliminary report was called and/or faxed to ED. VL/Venous Duplex US - [place] Extrem Interpretation Summary No evidence for acute deep venous thrombosis bilateral lower extremities with p atent and compressible bilateral great saphenous veins. Distal right medial thigh 2.62 x 1.08 cm hypoechoic structure with significant ringdown effect consistent with a cystic structure. Nonvascular. Clinical correlation appropriate. Ordering Physician: Hayde Arce Referring Physician: Jacy Haney Performed By: Suzi Pompa, [place], RVT
== END ==
PROVIDERS: PCP Internal Medicine; Visit Provider Emergency Medicine
DX: R60.0 Localized edema (principal)
CPT/HCPCS: 93970

== ENCOUNTER → 2020-08-10 13:00 | Outpatient (CLI) | payer MEDICARE, MEDICAID, SELFPAY ==
[2020-07-25 12:06] VITALS: BMI 19.3
[2020-08-10 13:14] VITALS: BP 88/51; PULSE 85; RESP 16; TEMP 36.8; O2SAT 100; BMI 17.9
[2020-08-10] MEDS: 0.9% NaCl Peripheral Flush Adult/Peds IV (13:31)
[2020-08-10 14:23] VITALS: BP 77/46; PULSE 72; RESP 16; TEMP 36.4
[2020-08-10 15:29] VITALS: BP 87/55; PULSE 62; RESP 16; TEMP 36.6; O2SAT 100
[2020-08-10 16:46] VITALS: BP 108/68; PULSE 67; RESP 16
== END ==
PROVIDERS: PCP Internal Medicine; Referring Provider Internal Medicine Hematology & Oncology; Visit Provider Internal Medicine Hematology & Oncology
DX: D64.9 Anemia, unspecified (principal)
CPT/HCPCS: 36430; 86850; 86900; 86901; 86920; 86922; J7040; J7050; P9016; A4216

== ENCOUNTER 2020-09-02 11:34 | Emergency (ER) | payer MEDICARE, MEDICAID, SELFPAY ==
[2020-08-10 13:14] VITALS: BMI 17.9
[2020-09-02 11:35] VITALS: BP 93/64; PULSE 64; RESP 15; TEMP 36.4; O2SAT 98; BMI 16.6
--- NOTE | 2020-09-02 11:54 | EDS_ITS ---
HPI History of Present Illness Chief Complaint: Nausea/Vomiting Informant: patient Narrative Narrative: Patient is a 74-year-old male with a history of esophageal cancer who presents to the emergency department for concern for dehydration. He was sent in by his oncologist. Patient has had difficulty swallowing his Ensure since his radiation treatment this past Sunday. He states that he has been feeling very fatigued after exerting himself. Patient denies ever having this happen before. He did have 1 episode of vomiting. Denies any change in bowel movements. No abdominal pain. No fevers or chills. No urinary symptoms. Patient was told to come to the emergency department yesterday but states he felt too fatigued after shopping so he waited until today. [facility] Medical History (Updated 09/02/20 @ 13:[address] Abdoul Thornton DO) Arthritis Asthma Biceps tendon rupture Cancer Chronic back pain Depression with anxiety Drug abuse in remission Enlarged prostate Former smoker Substance abuse Home Medications duloxetine 30 mg PO DAILY 07/18/20 [History Last Taken Unknown] trazodone 50 mg PO QHS 07/18/20 [History Last Taken Unknown] pantoprazole [Protonix] 40 mg PO DAILY #30 tab 07/20/20 [Rx Last Taken Unknown] sucralfate [Carafate] 1 g PO ACHS 07/25/20 [History Last Taken Unknown] Allergy/AdvReac Type Severity Reaction Status Date / Time No Known Allergies Allergy Verified 09/02/20 11:38 Family History Father Cancer LUNG Arthritis Mother Arthritis Brother Arthritis Sister Arthritis Surgical History Jaw fracture Social History household members: none Smoking Status: Former smoker quit date: 06/28/20 how long ago did patient quit smoking: Patient quit 06/28/20, smoked 3 black/mild cigar daily, prior 1/2 ppd cigaret alcohol intake: current alcohol intake frequency: 0-2 drinks per day Alcohol type: beer and wine substance use type: marijuana what type of physical activity do you participate in: bicycling frequency: 5-6 times per week ROS ROS ED Constitutional Constitutional ED: Denies chills or fever(s) Eyes Eyes: Denies change in vision ENT ENT ED: Denies epistaxis or rhinorrhea Cardiovascular Cardiovascular: Denies chest pain or palpitations Respiratory/Chest Respiratory/Chest: Denies cough, dyspnea or dyspnea on exertion Gastrointestinal Gastrointestinal: Reports nausea and vomiting; Denies abdominal pain or diarrhea Genitourinary Genitourinary ED: Denies dysuria, hematuria or urinary frequency Musculoskeletal Musculoskeletal: Denies back pain or neck pain Integumentary Denies rash Neurologic Neurologic: Denies dizziness, headache(s) or weakness EXAM Physical Exam Const Vital Signs: 09/02/20 11:35 09/02/20 14:16 Temperature 97.6 F L Temperature Source Temporal Pulse Rate 64 60 Respiratory Rate 15 14 Blood Pressure 93/64 92/69 Blood Pressure Mean 73 Pulse Ox 98 96 Oxygen Delivery Method Room Air General Appearance ED: NAD HEENT Reports normocephalic and head/scalp atraumatic Eyes PERRL and EOMs intact bilaterally Neck supple Resp normal respiratory effort and clear to auscultation bilaterally Auscultation: Negative for rales, rhonchi or wheezes Cardio regular rate, regular rhythm and no murmurs GI normal to inspection, nondistended, normoactive bowel sounds and non-tender Palpation: soft; Negative for guarding or rebound tenderness present Back/Spine no CVA tenderness Extremity normal to inspection General Extremety ED: Negative for edema or tenderness General Extremity: Negative for edema Neuro oriented x3, CN's II-XII intact bilaterally and no sensory deficits noted Sensorium / Orientation: alert Motor Exam: strength 5/5 throughout Psych mental status grossly normal Skin no rashes or lesions noted MDM MDM MDM Narrative Medical decision making narrative: Patient presents to the emergency department for difficulty swallowing after radiation treatment of his esophageal cancer. He was thought to be becoming dehydrated by his oncologist and told to come to the emergency department. On arrival to the emerge department blood pressure is mildly low but otherwise normal vital signs. Will check basic lab work and start IV fluids. Patient's lab work showed the patient to be anemic but this is improved from his previous lab draw. He has a mild leukopenia. His carbon dioxide is mildly elevated but no other significant acute electrolyte disturbance. Glucose is mildly high. Patient able to tolerate water here at bedside. He is feeling better after IV fluids and wants to be discharged. Is going to follow-up with his oncologist. Return precautions are reviewed with him including inability to swallow, shortness of breath. He understands and is agreeable this plan. Discharged home in stable condition. All questions were answered. Lab Data Labs: Laboratory Results - last 24 hr 09/02/20 09/02/20 12:10 12:10 WBC 3.4 L RBC 3.73 L Hgb 10.3 L Hct 33.9 L MCV 90.9 MCH 27.6 MCHC 30.4 L RDW Std Deviation 47.0 H RDW Coeff of Slime 14.2 Plt Count 368 MPV 8.3 Immature Gran % (Auto) 0.600 Neut % (Auto) 84.2 H Lymph % (Auto) 4.4 L [place] % (Auto) 10.2 H Eos % (Auto) 0.0 Baso % (Auto) 0.6 Absolute Neuts (auto) 2.9 Absolute Lymphs (auto) 0.15 L Nucleated RBC % 0 Diff Path Review May foll Platelet Estimate ADEQUATE Hypochromasia RARE Sodium 142 Potassium 3.9 Chloride 104 Carbon Dioxide 33.0 H Anion Gap 5 BUN 21 H Creatinine 1.07 Estim Creat Clear Calc 37.08 Est GFR (MDRD) Af Amer 87 Est GFR (MDRD) Non-Af 72 BUN/Creatinine Ratio 19.6 Glucose 129 H Calcium 9.8 Phosphorus 3.2 Magnesium 2.1 Total Bilirubin 0.20 AST 11 L ALT 9 L Alkaline Phosphatase 78 Total Protein 6.8 Albumin 2.5 L Globulin 4.3 H Albumin/Globulin Ratio 0.6 L Discharge Plan Triage Chief Complaint: Nausea/Vomiting ED Provider: Abdoul Thornton Dx/Rx/DC Orders Clinical Impression: Dysphagia Instructions: ED Dysphagia (Adult) Prescriptions: No Action trazodone 50 mg tablet 50 mg PO QHS RF: 0 duloxetine 30 mg capsule,delayed release(DR/EC) 30 mg PO DAILY RF: 0 pantoprazole [Protonix] 40 mg tablet,delayed release (DR/EC) 40 mg PO DAILY Qty: 30 RF: 0 sucralfate [Carafate] 1 gram Tablet 1 g PO ACHS RF: 0 Primary Care Provider: Jacy Haney Referrals: Jacy Haney MD [Primary Care Provider] - Porfirio Isabel MD [STAFF PHYSICIAN] - 2 Days Disposition Disposition: Home, Self Care Discharge Date/Time: 09/02/20 14:17
[2020-09-02 12:33] LABS: Absolute Lymphocyte Count 0.15 X10^3/uL (0.83-4.51); Absolute Neutrophil Count 2.9 X10^3/uL (2.0-7.7); Basophil# 0.02 X10^3/uL; Basophil% 0.6 % (0-1); Hematocrit 33.9 % (40-54); Hemoglobin 10.3 g/dL (13.0-16.5); Lymphocyte # 0.15 X10^3/ul (0.83-4.51); Lymphocyte % 4.4 % (19-41); Mean Corp Hgb Conc 30.4 g/dL (32-36); Mean Corpuscular Hgb 27.6 pg (27.0-32.0); Mean Corpuscular Volume 90.9 fL (80-94); Mean Platelet Vol. 8.3 fl (6.2-12.0); Monocyte# 0.35 X10^3/uL; Monocyte% 10.2 % (0-10); NRBC Flagged by Analyzer 0 % (0-5); Neutrophil % 84.2 % (47-70); POSITIVE DIFFERENTIAL YES; Platelet Count 368 K/mm3 (150-450); RBC Distribution Width CV 14.2 % (11.6-14.6); Red Blood Count 3.73 M/mm3 (4.6-6.2); White Blood Count 3.4 K/mm3 (4.4-11.0)
[2020-09-02 12:34] LABS: Differential Indicated SCAN CRITERIA MET
[2020-09-02 12:49] LABS: ALB/GLOB Ratio 0.6 RATIO (0.9-2.4); AST(SGOT) 11 U/L (15-37); Alanine Aminotransfer ALT/SGPT 9 U/L (16-61); Albumin, Serum 2.5 g/dL (3.2-5.0); Alkaline Phosphatase 78 U/L (45-117); Anion Gap 5 (5-15); BUN 21 mg/dL (7-18); BUN/Creat Ratio 19.6 RATIO (10-20); Calcium,Total 9.8 mg/dL (8.5-10.1); Chloride 104 mmol/L (98-107); Creatinine, Serum 1.07 mg/dL (0.70-1.30); EST Glomerular Filtration Rate 72 mL/min (>60); Est Glom Filt Rate - Afr Amer 87 mL/min (>60); Estimated Creatinine Clearance 37.08 ml/min; Globulin 4.3 g/dL (2.2-4.2); Glucose 129 mg/dL (74-106); Magnesium 2.1 mg/dL (1.6-2.6); Phosphorus 3.2 mg/dL (2.5-4.9); Potassium 3.9 mmol/L (3.5-5.1); Protein, Total 6.8 g/dL (6.4-8.2); Sodium Level 142 mmol/L (136-145)
[2020-09-02 12:57] LABS: Platelet Estimate ADEQUATE (ADEQ)
[2020-09-02 12:58] LABS: Hypochromasia RARE
[2020-09-02 14:16] VITALS: BP 92/69; PULSE 60; RESP 14; O2SAT 96
[2020-09-03 10:37] LABS: Pathologist Review Reviewed
== END 2020-09-02 14:17 | disposition home or self-care (01) ==
PROVIDERS: Emergency Provider Emergency Medicine; PCP Internal Medicine
DX: R13.10 Dysphagia, unspecified (principal); C15.9 Malignant neoplasm of esophagus, unspecified; M19.90 Unspecified osteoarthritis, unspecified site; J45.909 Unspecified asthma, uncomplicated; Z87.891 Personal history of nicotine dependence
CPT/HCPCS: 80053; 83735; 84100; 85025; 96360; 96361; 99284; J7050; A4216

== ENCOUNTER 2020-10-15 10:05 | Day surgery (SDC) | payer MEDICARE, MEDICAID, SELFPAY ==
[2020-10-15] VITALS (8 sets, daily range): BP systolic 100–144; BP diastolic 57–99; PULSE 50–72; RESP 16–18; TEMP 35.9–36.3; O2SAT 93–100; BMI 18.1
[2020-10-15] MEDS: Lactated Ringers 1,000 ML 100 ML IV (10:35)
--- NOTE | 2020-10-15 11:45 | PCM.HP.BLA ---
History and Physical Date of Admission: 10/15/20 HISTORY AND PHYSICAL ? Earl Gaming 1945 ? ? REFERRING PHYSICIAN: Andres Thakkar DO ? CHIEF COMPLAINT: Consult (EGD/ Port consult) ? HPI: The patient is a 74 year old male with a diagnosis of esophageal carcinoma. Earl is currently scheduled to undergo chemotherapy and needs vascular access for treatment. The patient denies a prior history of central venous access. ? The patient is being seen by me today at the request of Dr. Thakkar for my opinion and advice regarding Vascular catheter fitting or adjustment (primary encounter diagnosis). ? ? PAST MEDICAL HISTORY PAST MEDICAL HISTORY Diagnosis Date ? Anxiety ? ? Asthma ? ? Closed head injury with concussion 11/2009 ? [address] [facility] [place] ? Insomnia ? ? Joint pain ? ? Scoliosis ? ? ? PAST SURGICAL HISTORY PAST SURGICAL HISTORY Procedure Laterality Date ? EGD ? 06/12/2016 ? REPAIR LOWER JAW FRACTURE ? 08/2009 ? ? ? CURRENT MEDICATIONS Current Outpatient Medications Medication Sig Dispense Refill ? pantoprazole DR (PROTONIX) 40 mg tablet Take 1 tablet by mouth once daily. 30 tablet 1 ? ondansetron (ZOFRAN) 8 mg tablet Take 1 tablet by mouth every 8 hours as needed (For chemotherapy induced nausea). FOR NAUSEA 30 tablet 2 ? calcium carbonate (TUMS) 500 mg chew Take 1.5 tablets by mouth every 4 hours as needed (heartburn). (Patient not taking: Reported on 07/28/2020 ) ? ? ? traZODone (DESYREL) 50 mg tablet Take 1 tablet by mouth daily at bedtime. 30 tablet 5 ? DULoxetine (CYMBALTA) 30 mg capsule Take 1 capsule by mouth once daily. Start with one pill a day for a week and then increase to 2 pills a day 60 capsule 1 ? amLODIPine (NORVASC) 2.5 mg tablet Take 1 tablet by mouth once daily. (Patient not taking: Reported on 07/28/2020 ) 30 tablet 4 ? FLUoxetine (PROZAC) 20 mg capsule Take 1 capsule by mouth once daily. (Patient not taking: Reported on 07/28/2020 ) 30 capsule 5 ? carbamide peroxide (DEBROX) 6.5 % otic solution Use 5 Drops in the right ear twice daily. (Patient not taking: Reported on 07/28/2020 ) 15 mL 1 ? Back Brace misc 1 Each once daily. 1 Each 0 ? No current facility-administered medications for this visit. ? ? ALLERGIES: Patient has no known allergies. ? PERSONAL HISTORY: SOCIAL HISTORY Social History ? Tobacco Use ? Smoking status: Current Every Day Smoker ? ? Packs/day: 0.50 ? ? Years: 55.00 ? ? Pack years: 27.50 ? ? Types: Cigars ? Smokeless tobacco: Never Used ? Tobacco comment: decreased 0-1 day currently since July 12, 2020 Substance Use Topics ? Alcohol use: Yes ? ? Comment: 0-1 drinks a week currently ? Drug use: Yes ? ? Frequency: 1.0 times per week ? ? Types: Marijuana, Cocaine ? ? Comment: marijuana last evening; cocaine X 3 days ago ? FAMILY HISTORY: FAMILY HISTORY FAMILY HISTORY Problem Relation Age of Onset ? Arthritis Mother ? ? Arthritis Father ? ? Cancer Father ? ? lung ? Scoliosis Sister ? ? Scoliosis Sister ? ? Scoliosis Sister ? ? other (rheumatic fever) Brother ? ? Arthritis Brother ? ? other (ptsd) Brother ? ? ? REVIEW OF SYSTEMS: ?General:???The patient NOTES?fatigue, NOTES?weight loss, denies?weight gain, denies?feeling hot, and denies?feelings of cold. ?Eyes: ?The patient denies?glaucoma, denies?eye injury/surgery, wears?glasses or contacts. ?Ear/Nose/Throat: ?The patient denies?allergies, denies?hayfever, denies?ear infections, and denies?bloody noses. ?Cardiovascular: ?The patient denies?chest pain, denies?heart disease, NOTES?high blood pressure,denies?cardiac stent, denies?prior heart attack, denies?irregular heart beat, denies?high cholesterol, ?denies?poor circulation, denies?heart failure, other cardiac issues, denies?claudication, denies?cold feet, denies?peripheral arterial stent. ?Respiratory: ?The patient denies?tuberculosis, denies?pneumonia, denies?frequent cough, denies?pulmonary embolism, denies?shortness of breath, and denies?coughing up blood. ?Gastrointestinal: ?The patient NOTES?difficulty swallowing, denies?acid reflux, denies?ulcers, denies?vomiting, denies?jaundice/hepatitis, denies?gallbladder problems, denies?black or tarry stools, denies?hemorrhoids, denies?bleeding from rectum, denies?diverticulitis, denies?constipation, denies?diarrhea, denies?loss of stool control, and denies?hernias. ?Kidney/Bladder: ?The patient denies?kidney stones, denies?urine infections, and denies?bloody urine. ?Skin: ?The patient denies?a history of skin cancer, denies?bleeding/changing moles, and denies?a history of skin rash. ?Neurologic: ?The patient denies?a history of epilepsy/convulsions, denies?headaches, denies?head/spinal injuries, and denies?stroke/TIA. ?Psychiatric: ?The patient denies?psychiatric medications, NOTES?depression, and denies?voices, denies?substance abuse. ?Endocrine: ?The patient denies?thyroid disorders, denies?diabetes, and denies?hormonal problems. ?Hematologic: ?The patient denies?a history of bruising, denies?bleeding, and denies?anemia, denies?blood clots. ?Infections: ?The patient denies?a history of measles and mumps, denies?rheumatic fever, and denies?sexually transmitted diseases. ?Musculoskeletal: ?The patient NOTES?back pain/injury, denies?back problems, denies?sciatica, denies?knee/foot trouble, denies?arthritis, or denies?gout. ? ? When was patient's last Mammogram screening??N/A ? ?Last Colonoscopy: ?unknown? PHYSICAL EXAMINATION: ? General: The patient is 74 year old male, well nourished, well hydrated in no acute distress. The patient is oriented to time, place, and person. ? VITALS: Blood pressure 106/64, pulse 98, temperature 36.8 ?C (98.3 ?F), height 160 cm (5' 3), weight 46.1 kg (101 lb 9.6 oz), SpO2 96 %. Body mass index is 18 kg/m?. ? HEENT: Normal cephalic, ataumatic, pupils are equally round, sclera are anicteric, mucous membranes are moist, oropharynx is clear. Neck has no masses, asymmetry or lymphadenopathy. Thyroid is unremarkable. ? Respiratory: Clear to auscultation and percussion. Normal respiratory excursion and pattern. ? Cardiac: Examination is regular rate and rhythm. ? Abdominal exam: Soft, nontender, with no palpable masses. No hepatosplenomegaly. No palpable hernias. ? Rectal exam: exam deferred ? Extremities: no clubbing, cyanosis or edema. No adenopathy. ? Other: ? ? LABORATORY VALUES: As Noted ? RADIOLOGIC STUDIES: As Noted ? Assessment IMPRESSION: Vascular catheter fitting or adjustment (primary encounter diagnosis), need for IV access ? PLAN: I plan to perform a right IJ port a cath placement. The planned surgical procedure was discussed extensively with the patient. The risks, benefits, anticipated outcomes and possible complications were mentioned. My staff has also explained the procedure in understandable terms and the patient was given the option to take printed material concerning the planned procedure. The patient had the opportunity to ask questions concerning the planned procedure. The patient freely consents to the planned procedure. ? [facility] [id number] ? Patient Weight Last 1 Encounter Wt Readings: Date: Wt: 10/12/2020 46.1 kg (101 lb 9.6 oz) ? Antibiotic: Ancef 2gm IVPB employee relations manager to OR ? Planned Anesthetic: MAC with local ? I will not plan to access the port at the time of surgery. ? Diagnoses: (Z45.2) Vascular catheter fitting or adjustment (primary encounter diagnosis) ? ? ? The patient is being seen by me today at the request of Dr. Thakkar for my opinion and advice regarding Vascular catheter fitting or adjustment (primary encounter diagnosis). ? COVID (Procedure Consent) Procedure Criteria ? Procedure Criteria: Yes Elective The surgeon/proceduralist and patient have discussed in detail the risk of exposure to and/or potential harm posed by the COVID-19 virus with having a surgery/procedure at this time versus the risk of? delaying the surgery/procedure. It is not possible to know either the risk of delaying the surgery or procedure or chance of getting an infection with perfect accuracy, but a joint decision was made between the patient and the surgeon/proceduralist ?to proceed at this time with the scheduled surgery/procedure as indicated on the consent form. ? Kendrick Carroll III, MD I have re-examined the patient. There are no clinical changes since date of exam.
[2020-10-15] MEDS: Bupivacaine Mpf 0.5% 30 ML VIAL (12:35)
--- NOTE | 2020-10-15 12:35 | PCM.OPRPT ---
Problems Associated Problem List Diagnoses (1) Encounter for fitting and adjustment of non-vascular catheter: Report of Operation Date of Procedure: 10/15/20 Pre-Operative Diagnosis: Vascular fitting and adjustment Post-Operative Diagnosis: Same Surgery/Procedure Performed:: Placement of a right internal jugular PowerPort Surgeon: Kendrick Carroll bench assembly inspector: Mercedes Mason Type of Anesthesia: Local MAC Anesthesiologist: Wilton Robles Estimated Blood Loss (mL): < 5 cc Description of Procedure: Patient brought into the operating room. Placed in the supine position. Under excellent MAC anesthetic placed in the headdown position ultrasound the neck marked the area of the internal jugular vein and chest appropriately the neck and chest were then sterilely prepped and draped in the usual fashion. Local was injected into the neck. Seldinger's technique was used to gain access to the internal jugular vein guidewire was placed over the needle the needle was removed fluoroscopy was used to confirm proper placement of the wire. I injected local in the chest made an incision used electrocautery to create a pocket for the port went back up to the neck made a skin keron sequentially dilated the area placed the dilator and sheath over the guidewire then remove the dilator and guidewire. Placed a single lumen catheter into the sheath remove the sheath. Used fluoroscopy to confirm proper length. Tunneled from the pocket over the collarbone into the neck and brought the catheter down cut it to length placed in locking hub onto the catheter placed the port onto the catheter and secured the tube with a locking hub. It flushed and irrigated well. It was sutured into the pocket created with 2 sutures of 2-0 Prolene. Skin incisions were closed with deep dermal sutures of 3-0 Vicryl Dermabond was applied sterile dressings were applied and the patient tolerated the procedure well. Postoperative chest x-ray was ordered Admit VTE Documentation VTE Present on Admission: No VTE Mechan Device Prophylaxis: SCD's VTE Pharm Prophylaxis ordered?: No Reason prophylaxis not ordered:: Treatment Not Indicated
--- NOTE | 2020-10-15 12:41 | EX.PCM.DISCH ---
Discharge Instructions Procedure Port-A-Cath Diet Discharge Diet: No restrictions (Pain medication may cause nausea. You should typically eat light foods as you take your pain medication.) Activity Discharge Activity: May Shower (with the bandage in place 1-2 days after surgery. DO NOT SHOWER WHEN YOUR PORT IS ACCESSED.) Additional Activity Instructions:: May not drive, work with heavy equipment, or sign legal documents for [address]. [address] if you are no longer taking narcotic pain medications. You may drive when you are no longer taking pain medications. Dressing / Incision Additional Dressing/Incision Instructions:: Leave the bandage on for 2-3 days. When you remove the bandage, leave the steri-strips intact until they fall off. Follow Up Care Please Follow Up With: Connie Vallecillo PA-C When: Call office to schedule an appointment to be seen in 7 days. Test Results: Test results from this visit will be discussed in further detail at your follow-up appointment, if applicable. Discharge Plan Admission Attending Provider: Kendrick Carroll Primary Care Provider: Jacy Haney Instructions Patient Instructions: ED Chest Pain, Noncardiac Discharge Orders/Prescriptions Prescriptions: New oxycodone-acetaminophen [Endocet] 5-325 mg tablet 1 tab PO Q6H PRN (Reason: pain) 5 Days Qty: 20 RF: 0 Continued trazodone 50 mg tablet 50 mg PO QHS RF: 0 duloxetine 30 mg capsule,delayed release(DR/EC) 30 mg PO DAILY RF: 0 pantoprazole [Protonix] 40 mg tablet,delayed release (DR/EC) 40 mg PO DAILY Qty: 30 RF: 0 Referrals / Follow Up: Jacy Haney MD [Primary Care Provider] - Andres Thakkar DO [STAFF PHYSICIAN] - Disposition Disposition (needs filled in before D/C Order can be placed): Home, Self Care
--- NOTE | 2020-10-15 12:55 | RAD_ITS ---
STUDY: X-RAY CHEST REASON FOR EXAM: Male, 74 years old. Port placement. TECHNIQUE: Single AP portable view of the chest. COMPARISON: Comparison is made with prior study 07/25/2020. FINDINGS: A right-sided oly catheter has been placed. The tip is at the junction of the superior vena cava and right atrium. There is hyperinflation of the lungs consistent with chronic obstructive lung disease (COPD). There is no demonstrated pleural abnormality. Normal size heart. Normal mediastinum and chalra. Normal visualized pulmonary arteries. There is atherosclerotic tortuosity of the aortic arch and descending thoracic aorta. There are diffuse degenerative changes of the visualized thoracic spine. Dextroscoliosis of the lumbar spine. There is degenerative osteoarthritis of the bilateral shoulders. There is no demonstrated abnormality of the visualized soft tissue structures of the upper abdomen. RAD/CXR for Line Placement IMPRESSION: The tip of the right-sided oly catheter is at the junction of the superior vena cava and right atrium. Hyperinflation. Electronically Signed: Gordon Marcum MD at 13:11 EDT , Service support ,
--- NOTE | 2020-10-15 13:35 | SUR.PHASEII ---
PT. EATING NOW. HE DENIES PAIN. PHARMACY IS TO DELIVER RX TO ROOM. PT. IS WORKING ON GETTING A RIDE HOME.
--- NOTE | 2020-10-15 13:59 | SUR.PHASEII ---
pt. ambulated to bathroom and voided. he has called for a ride.
== END 2020-10-15 14:25 | disposition home or self-care (01) ==
LOC: SDC 10:08 → AC 10:08
PROVIDERS: PCP Internal Medicine; Visit Provider Surgery
PROC: (CPT 36561; principal; 2020-10-15 11:45)
DX: Z45.2 Encounter for adjustment and management of vascular access device (principal); C15.9 Malignant neoplasm of esophagus, unspecified; M41.9 Scoliosis, unspecified; F41.8 Other specified anxiety disorders; N40.0 Benign prostatic hyperplasia without lower urinary tract symptoms; M19.90 Unspecified osteoarthritis, unspecified site; G89.29 Other chronic pain; J45.909 Unspecified asthma, uncomplicated; Z87.01 Personal history of pneumonia (recurrent); Z79.899 Other long term (current) drug therapy; F17.210 Nicotine dependence, cigarettes, uncomplicated
CPT/HCPCS: 36561; 71045; 77001; 87426; J7120; C1788

== ENCOUNTER 2021-02-07 12:56 | Observation (INO) | payer MEDICARE, MEDICAID, SELFPAY ==
[2021-02-07 12:57] VITALS: BP 109/84; PULSE 100; RESP 18; TEMP 36.1; O2SAT 96; BMI 17.6
[2021-02-07 14:26] VITALS: BP 115/93; PULSE 72; RESP 16; O2SAT 94
--- NOTE | 2021-02-07 15:01 | CM.ED ---
Addendum entered by Mari Cervantes 02/07/21 19:16: KHADIJAH gave this business writer verbal consent to make referral to [facility] and updated her that patient had been admitted to the Hospital. Mari LANDRY LUPE Addendum entered by Mari Cervantes 02/07/21 16:03: KHADIJAH clarified with patient in regards to his food situation. Patient said that he has access and has food but has been unable to eat due to his treatments. Patient voiced he has phone. KHADIJAH provided handout with food pantries from Mari ANDRADE Original Note: KHADIJAH Note Referral Source: crusher loader equipment operator Reason: Resources/Discharge planning. Patient reports he is eating 2 meals a day. SW met with patient and introduced self. Patient said that he lives by himself in an apartment. Patient reports that he was doing fine at home until last week. Patient said that he has no energy and is whipped out. Patient said that his insurance is sending him a $50 gift card at the first of the month to purchase over the counter items. Patient reports he was previously linked with [facility] through [facility] [employer] but I don't know what happened with that. SW offered to make new referral to [facility] and provided him with information on [facility]. KHADIJAH sent email to Elsy Melendez making referral for patient. SW advised patient of the services through [facility] and patient said that he was interested in their programming. SW provided patient with phone number for [facility] and encouraged him to call them for in home assessment. Patient said that he does not use a cane or DME and again voiced he felt he was doing ok till last week. Patient said that he is a . Patient said that he has family that lives a stone throw away but he does not have interaction or support as they are so dysfunctional. KHADIJAH provided patient with Phone number for [facility]. Plan: Resources were provided for patient. Resources included [facility] handout, [facility] handout and [facility]. Mari ANDRADE
--- NOTE | 2021-02-07 15:06 | EKG12_ITS ---
Test Reason : WEAKNESS Blood Pressure : / mmHG Vent. Rate : 073 BPM Atrial Rate : 073 BPM P-R Int : 148 ms QRS Dur : 070 ms QT Int : 376 ms P-R-T Axes : 077 078 000 degrees QTc Int : 414 ms Normal sinus rhythm Septal infarct , age undetermined Abnormal ECG Confirmed by VANCE LEUNG, TRISTIN ([id number]), order editor SLY GALVAN ([id number]) on 02/09/2021 11:44:57 AM Referred By: JACINTO Confirmed By:TRISTIN WOODARD MD
--- NOTE | 2021-02-07 15:08 | EDS_ITS ---
HPI History of Present Illness Chief Complaint: Fatigue Informant: patient Narrative Narrative: Patient was attempted to be seen. However, he is on the phone setting up his Medicare advantage program and does not want to speak at this time. I reviewed the papers that came in with him and his history. In the interest of pursuing care, I did initiate orders based on the best information that I had available at that time. I was able to get in and talk to the patient when he was available. He states he is just had progressive generalized weakness more over the last week. He was diagnosed with esophageal cancer in April. He had initially what sounds like palliative radiation. There is no surgery planned at this time. He does not know if he has metastasis. He is getting chemotherapy. He states he has been slowly losing weight since April or June but this is not accelerated. He first told me he has not eaten anything for the last week. However, he then sounds like he is eating things regularly just smaller amounts. He just finished eating some chili before coming in here. He is drinking fluids and drinking coffee also. He had some issues with swallowing earlier but they have improved. He had esophageal stenting that was eventually removed. He does have some mild what he describes as congestion in his chest. He has an occasional cough with clear sputum but does not feel short of breath. He does not feel sick he just feels tired and weak. His story seems different than what I read on the notes when he talked to his oncologist office. He seems to state that this is a slow progressive process and has not suddenly changed in the last week. It did seem to worsen somewhat after the last chemotherapy but was going on already. He does state that he is getting progressively weaker and he was concerned he would have trouble even getting out of the couch today. [facility] Medical History Arthritis Asthma Biceps tendon rupture Cancer Chronic back pain Depression with anxiety Difficulty chewing Drug abuse in remission Enlarged prostate Gastric reflux Marijuana use Rash Smoker Substance abuse Wears glasses Wears partial dentures Home Medications duloxetine 30 mg PO DAILY 07/18/20 [History Last Taken Unknown] trazodone 50 mg PO QHS 07/18/20 [History Last Taken Unknown] pantoprazole [Protonix] 40 mg PO DAILY #30 tab 07/20/20 [Rx Last Taken 10/15/20 09:00] oxycodone-acetaminophen [Endocet] 1 tab PO Q6H PRN 5 Days #20 tab 10/15/20 [Rx Last Taken Unknown] Allergy/AdvReac Type Severity Reaction Status Date / Time No Known Allergies Allergy Verified 02/07/21 12:59 Family History Father Cancer LUNG Arthritis Mother Arthritis Brother Arthritis Sister Arthritis Surgical History Jaw fracture Social History household members: none Smoking Status: Current every day smoker tobacco type: cigarettes how long ago did patient quit smoking: Patient quit 06/28/20, smoked 3 black/mild cigar daily, prior 1/2 ppd cigaret alcohol intake: current alcohol intake frequency: 0-2 drinks per day Alcohol type: beer and wine substance use type: marijuana what type of physical activity do you participate in: bicycling frequency: 5-6 times per week ROS ROS ED Constitutional Constitutional ED: Denies chills or fever(s) Eyes Eyes: Denies blurry vision ENT ENT ED: Denies rhinorrhea or sore throat Cardiovascular Cardiovascular: Denies chest pain or orthopnea Respiratory/Chest Respiratory/Chest: Reports cough, sputum and other Details: No dyspnea on exertion. Clear sputum only. ; Denies dyspnea, dyspnea on exertion or orthopnea Gastrointestinal Gastrointestinal: Denies abdominal pain, diarrhea, nausea or vomiting Genitourinary Genitourinary ED: Denies dysuria Musculoskeletal Musculoskeletal: Reports myalgias and other Details: He does have sore arms and legs. He states my bones hurt. But this is not new or different. He does not know if this is from metastasis or what the origin of this is. However, it is not new. Integumentary Denies rash Neurologic Neurologic: Denies headache(s) or weakness Endocrine Endocrinology: Denies polydipsia or polyuria Allergic/Immunologic Allergic/Immunologic ED: Denies mouth swelling or urticaria EXAM Physical Exam Const Vital Signs: 02/07/21 12:57 02/07/21 14:23 02/07/21 14:26 Temperature 96.9 F L Temperature Source Temporal Pulse Rate 100 72 Respiratory Rate 18 16 Respiratory Effort Normal Respiratory Pattern Irregular Blood Pressure 109/84 H 115/93 H Blood Pressure Mean 92 100 Pulse Ox 96 94 Oxygen Delivery Method Room Air Room Air 02/07/21 16:02 Temperature Temperature Source Pulse Rate 88 Respiratory Rate 16 Respiratory Effort Respiratory Pattern Blood Pressure 112/85 H Blood Pressure Mean 94 Pulse Ox 95 Oxygen Delivery Method Room Air Positive well nourished and well developed General Appearance ED: well developed; Negative for cyanotic or diaphoretic HEENT Reports dry mucous membranes Mouth ED: Yes dry mucous membranes Mouth: dry mucous membranes Eyes General Eye ED: Negative for pale conjunctiva Neck no JVD Chest Wall inspection of chest normal Resp normal respiratory effort and clear to auscultation bilaterally Resp Narrative: He does have history of cough. However, his lungs are relatively clear. Med port palpable in right upper chest. Cardio regular rate and regular rhythm GI normal to inspection, nondistended, normoactive bowel sounds Palpation: soft Back/Spine no CVA tenderness Extremity normal to inspection Extremity Narrative: Very thin extremities diffusely. Muscle wasting. General Extremety ED: Negative for edema or tenderness General Extremity: Negative for edema Neuro oriented x3 Sensorium / Orientation: alert Psych mental status grossly normal Skin no rashes or lesions noted MDM MDM MDM Narrative Medical decision making narrative: Patient is a very low white count as well as absolute neutrophil count of 1.0. Potassium is minimally low. BUN to creatinine ratio is a bit high. Urine does show increased white cells cloudy and leukocyte Estrace. He is treated his UTI. Covid is also positive. However, x-ray is not showing marked abnormalities. I discussed the case with his oncologist. With the weakness, difficulty getting up, UTI, neutropenia and Covid he will be admitted. I discussed case with hospitalist. Lab Data Attestation: I reviewed the patient's lab results. Labs: Laboratory Results - last 24 hr 02/07/21 02/07/21 02/07/21 15:57 15:57 16:15 WBC 1.2 L* RBC 3.75 L Hgb 11.3 L Hct 35.6 L MCV 94.9 H MCH 30.1 MCHC 31.7 L RDW Std Deviation 49.4 H RDW Coeff of Slime 14.2 Plt Count 188 MPV 9.0 Immature Gran % (Auto) 0.000 Neut % (Auto) 83.0 H Lymph % (Auto) 15.4 L [place] % (Auto) 1.6 Eos % (Auto) 0.0 Baso % (Auto) 0.0 Absolute Neuts (auto) 1.0 L Absolute Lymphs (auto) 0.19 L Nucleated RBC % 0 Differential Comment Diff Path Review May foll Platelet Estimate ADEQUATE RBC Morphology NORM C+C Sodium 141 Potassium 3.3 L Chloride 104 Carbon Dioxide 29.0 Anion Gap 8 BUN 21 H Creatinine 0.93 Estim Creat Clear Calc 44.71 Est GFR (MDRD) Af Amer 102 Est GFR (MDRD) Non-Af 85 BUN/Creatinine Ratio 22.6 H Glucose 134 H Calcium 9.1 Total Bilirubin 0.30 AST 30 ALT 12 L Alkaline Phosphatase 79 Troponin I High Sens 12 Total Protein 7.0 Albumin 2.3 L Globulin 4.7 H Albumin/Globulin Ratio 0.5 L Urine Color Yellow Urine Clarity Sl. Cloudy Urine pH 5.0 Ur Specific [place] 1.025 Urine Protein 100 H Urine Glucose (UA) Normal Urine Ketones Negative Urine Occult Blood 250 H Urine Nitrite Negative Urine Bilirubin Negative Urine Urobilinogen 1 H Ur Leukocyte Esterase 500 H Urine RBC 10-25 SEEN Urine WBC 50-100 SEEN Ur Squamous Epith Cells 0-5 SEEN Urine Bacteria 0 SEEN Urine Mucus 0 SEEN Urine Trichomonas 0-5 SEEN Radiography Diagnostic Testing: Clinical Impression(s) from Imaging Studies Chest X-Ray 02/07/21 16:20 IMPRESSION: Nonacute portable x-ray examination of the chest. Electronically Signed: Sergey Lin MD ([place]) at 16:37 EST , Service support , EKG Initial EKG: Comments: EKG done for generalized weakness read by me showed normal sinus rhythm with irregular baseline but no sign of ectopy. No acute ST elevation or depression. WA interval, QRS duration and QTc normal. Discharge Plan Triage Chief Complaint: Fatigue ED Provider: Wilmer Rothman Dx/Rx/DC Orders Clinical Impression: COVID, Acute UTI, Generalized weakness, Esophageal cancer, Neutropenia Prescriptions: No Action trazodone 50 mg tablet 50 mg PO QHS RF: 0 duloxetine 30 mg capsule,delayed release(DR/EC) 30 mg PO DAILY RF: 0 pantoprazole [Protonix] 40 mg tablet,delayed release (DR/EC) 40 mg PO DAILY Qty: 30 RF: 0 oxycodone-acetaminophen [Endocet] 5-325 mg tablet 1 tab PO Q6H PRN (Reason: pain) 5 Days Qty: 20 RF: 0 Primary Care Provider: Jacy Haney Referrals: Jacy Haney MD [Primary Care Provider] - Disposition Disposition: Acute Care [facility]
[2021-02-07 16:02] VITALS: BP 112/85; PULSE 88; RESP 16; O2SAT 95
[2021-02-07] MEDS: Ondansetron 4 MG/2 ML Vial IV (16:12)
[2021-02-07 16:13] LABS: Absolute Lymphocyte Count 0.19 X10^3/uL (0.83-4.51); Hematocrit 35.6 % (40-54); Hemoglobin 11.3 g/dL (13.0-16.5); Lymphocyte # 0.19 X10^3/ul (0.83-4.51); Lymphocyte % 15.4 % (19-41); Mean Corp Hgb Conc 31.7 g/dL (32-36); Mean Corpuscular Hgb 30.1 pg (27.0-32.0); Mean Corpuscular Volume 94.9 fL (80-94); Monocyte# 0.02 X10^3/uL; Monocyte% 1.6 % (0-10); NRBC Flagged by Analyzer 0 % (0-5); Neutrophil # 1.02 X10^3/uL (2.7-7.7); POSITIVE COUNT YES; POSITIVE DIFFERENTIAL YES; Platelet Count 188 K/mm3 (150-450); RBC Distribution Width CV 14.2 % (11.6-14.6); RBC Distribution Width SD 49.4 fl (35.1-43.9); Red Blood Count 3.75 M/mm3 (4.6-6.2)
[2021-02-07 16:18] LABS: Differential Indicated SCAN CRITERIA MET; White Blood Count 1.2 K/mm3 (4.4-11.0)
--- NOTE | 2021-02-07 16:20 | RAD_ITS ---
STUDY: X-RAY CHEST REASON FOR EXAM: Male, 75 years old. cough TECHNIQUE: AP COMPARISON: 10/15/2020 FINDINGS: Right chest port stable. There are interstitial fibrotic changes of the lung bases. There is no demonstrated pleural abnormality. Normal size heart. Normal mediastinum and charla. Normal visualized pulmonary arteries. Normal visualized aortic arch and descending thoracic aorta. Normal visualized thoracic spine. Normal visualized ribs, clavicles, and shoulders. There is no demonstrated abnormality of the visualized soft tissue structures of the upper abdomen. RAD/Chest 1 View (Portable) IMPRESSION: Nonacute portable x-ray examination of the chest. Electronically Signed: Sergey Lin MD (Brooks) at 16:37 EST , Service support ,
[2021-02-07 16:23] LABS: Bacteria 0 SEEN /hpf (None Seen); Mucous, Urine 0 SEEN /hpf (<or=2+)
[2021-02-07 16:24] LABS: Color, Urine Yellow (Yellow); Glucose, Dipstick Normal (Normal); Ketone-Dipstick Negative (Negative); Leukocyte Esterase-Dipstick 500 /ul (Negative); Nitrite-Dipstick Negative (Negative); Occult Blood-Urine 250 /ul (Negative); Protein-Dipstick 100 mg/dl (Negative); Specific Gravity, Urine 1.025 (1.002-1.030); Urine Bilirubin Dipstick Negative (Negative); Urine Clarity Sl. Cloudy (Clear); Urine Urobilinogen 1 mg/dl (Normal)
[2021-02-07 16:32] LABS: ALB/GLOB Ratio 0.5 RATIO (0.9-2.4); AST(SGOT) 30 U/L (15-37); Alanine Aminotransfer ALT/SGPT 12 U/L (16-61); Albumin, Serum 2.3 g/dL (3.2-5.0); Alkaline Phosphatase 79 U/L (45-117); Anion Gap 8 (5-15); BUN 21 mg/dL (7-18); BUN/Creat Ratio 22.6 RATIO (10-20); Calcium,Total 9.1 mg/dL (8.5-10.1); Chloride 104 mmol/L (98-107); Creatinine, Serum 0.93 mg/dL (0.70-1.30); EST Glomerular Filtration Rate 85 mL/min (>60); Est Glom Filt Rate - Afr Amer 102 mL/min (>60); Estimated Creatinine Clearance 44.71 ml/min; Globulin 4.7 g/dL (2.2-4.2); Glucose 134 mg/dL (74-106); Potassium 3.3 mmol/L (3.5-5.1); Sodium Level 141 mmol/L (136-145); Troponin-I HS 12 pg/mL (3.0-78.0)
[2021-02-07 16:35] LABS: White Blood Cells 50-100 SEEN /hpf (0-5)
[2021-02-07 16:36] LABS: Red Blood Cells-Urine 10-25 SEEN /hpf (0-5)
[2021-02-07 16:38] LABS: Squamous Epithelial Cells - UA 0-5 SEEN /hpf (0-5); Trichomonas 0-5 SEEN /hpf (None Seen)
[2021-02-07 16:48] LABS: Platelet Estimate ADEQUATE (ADEQ); Red Cell Morphology NORM C+C NORMAL (NORM C&C)
--- NOTE | 2021-02-07 17:37 | ED.RN ---
significant other Franny Gaming [phone]
[2021-02-07] MEDS: Ceftriaxone 1 GM/50 ML BAG IV (18:26)
[2021-02-07 18:27] VITALS: BP 131/93; PULSE 65; RESP 14; TEMP 36.6; O2SAT 97
--- NOTE | 2021-02-07 20:04 | HP.PCM.HOS_ITS ---
HPI - General General Date of Admission: 02/07/21 Date of Service: 02/07/21 Chief Complaint: Fatigue HPI Narrative ADONIS NGUYEN, is a 75 M who presented to the emergency department at [facility] because he was experiencing progressively worsening fatigue over the last week. He had been diagnosed with esophageal cancer in April 2020 and is currently undergoing chemotherapy and palliative radiation. He is a right upper chest Mediport and his last chemo was last week. He follows with Dr. Thakkar. He states he has been slowly losing weight since April but this is not accelerated as of recently. He states his p.o. intake is been so-so. He had a stent placed previously but he had pain due to his stent and therefore it had been removed. 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 Scan showed lymphadenopathy that was concerning for metastatic lymphadenopathy. He has had intermittent cough but it does not appear that it is consistent with sputum production. He has had no nausea or vomiting, diarrhea or constipation. He does complain of dysgeusia and is anosmia. His biggest complaint is his progressively worsening weakness. His vital signs the emergency department are overall unimpressive. His CBC shows a lymphopenia with a white count of 1.2 and an absolute neutrophil count of 1.0, and anemia with a stable hemoglobin, and a normal platelet count. His CMP shows mild hypokalemia with a potassium of 3.3 and a mildly elevated BUN at 31. His blood glucose level is 134. His LFTs are within normal limits. His troponin was normal at 12. His UA is suggestive of infection with positive leukoesterase, positive occult blood, and marked amounts of white cells in his urine however there were no bacteria. Chest x-ray was unremarkable. His rapid Covid is positive. The patient is nonvaccinated. Fortunately, he is currently on room air. The case was discussed by the ER physician with oncology and given his marked debility and the fact that he is neutropenic they recommended treatment for urinary tract infection despite having no pyuria on his UA. Culture was sent and he was started on ceftriaxone. [facility] Medical History Arthritis Asthma Biceps tendon rupture Cancer Chronic back pain Depression with anxiety Difficulty chewing Drug abuse in remission Enlarged prostate Gastric reflux Marijuana use Rash Smoker Substance abuse Wears glasses Wears partial dentures Home Medications trazodone 50 mg PO QHS PRN PRN 07/18/20 [History Last Taken Unknown] pantoprazole [Protonix] 40 mg PO DAILY #30 tab 07/20/20 [Rx Last Taken 10/15/20 09:00] nystatin 1 ml PO Q6H 02/07/21 [History Last Taken Unknown] Allergy/AdvReac Type Severity Reaction Status Date / Time No Known Allergies Allergy Verified 02/07/21 12:59 Family History Father Cancer LUNG Arthritis Mother Arthritis Brother Arthritis Sister Arthritis Surgical History Jaw fracture Social History household members: none Smoking Status: Current every day smoker tobacco type: cigarettes how long ago did patient quit smoking: Patient quit 06/28/20, smoked 3 black/mild cigar daily, prior 1/2 ppd cigaret alcohol intake: current alcohol intake frequency: 0-2 drinks per day Alcohol type: beer and wine substance use type: marijuana what type of physical activity do you participate in: bicycling frequency: 5-6 times per week ROS Constitutional Constitutional: Reports anorexia, change in weight, fatigue, malaise and weakness; Denies chills, fever(s), night sweats or other Eyes Eyes: Denies blurry vision, change in eye color, change in vision, discharge from eye(s), double vision, erythema, eye pain, loss of vision or other ENT HEENT: Reports dysphagia; Denies abnormal hearing, ear pain, epistaxis, headache(s), hearing loss, nasal congestion, nasal discharge, post nasal drip, sinus pressure, sore throat or other Cardiovascular Cardiovascular: Reports dyspnea on exertion; Denies chest pain, claudication, edema, lightheadedness, orthopnea, palpitations, paroxysmal nocturnal dyspnea, rapid heart rate, syncope or other Respiratory/Chest Respiratory/Chest: Reports cough, dyspnea and shortness of breath with exertion Gastrointestinal Gastrointestinal: Denies abdominal pain, coffee ground emesis, constipation, diarrhea, dyspepsia, hematemesis, hematochezia, loose stools, melena, nausea, vomiting or other Genitourinary Genitourinary: Reports burning urination, difficulty urinating and urinary frequency; Denies dysuria, hematuria, nocturia, urinary hesitancy, urinary incontinence, urinary urgency or other Musculoskeletal Musculoskeletal: Denies arthralgias, back pain, joint pain, joint stiffness, joint swelling, myalgias, neck pain or other Neurologic Neurologic: Denies abnormal gait, abnormal speech, confusion, disequilibrium, dizziness, focal weakness, headache(s), numbness, paresthesias, seizure-like activity, seizures, syncope, tingling, tremor(s) or other Psychiatric Psychiatric: Denies anxiety, depression, homicidal ideation, suicidal ideation or other Endocrine Endocrinology: Denies change in body appearance, cold intolerance, excessive sweating, heat intolerance, polydipsia, polyuria or other Hematologic/Lymphatic Hematologic/Lymphatic: Denies anemia, easy bleeding, easy bruising, lymphadenopathy or other Allergic/Immunologic Allergic/Immunologic: Denies rhinitis, hives, eczemia, asthma or other Vital Signs Vital Signs Vital Signs: 02/07/21 12:57 02/07/21 14:23 02/07/21 14:26 Temperature 96.9 F L Temperature Source Temporal Pulse Rate 100 72 Respiratory Rate 18 16 Respiratory Effort Normal Respiratory Pattern Irregular Blood Pressure 109/84 H 115/93 H Blood Pressure Mean 92 100 Pulse Ox 96 94 Oxygen Delivery Method Room Air Room Air 02/07/21 16:02 02/07/21 18:27 Temperature 98 F Temperature Source Temporal Pulse Rate 88 65 Respiratory Rate 16 14 Respiratory Effort Respiratory Pattern Blood Pressure 112/85 H 131/93 H Blood Pressure Mean 94 105 Pulse Ox 95 97 Oxygen Delivery Method Room Air Room Air Weight Weight: 45.359 kg Body Mass Index (BMI) 17.6 Physical Exam Const alert, oriented x3 and no apparent distress Constitutional Narrative: Elderly, cachectic -[place] male who appears older than stated age, sitting up in bed, very pleasant, nontoxic General Appearance: cooperative HEENT normocephalic, head/scalp atraumatic and moist oral mucous membranes HEENT Narrative: Mildly hard of hearing, dentition is poor, no thrush, Mallampati 2, temporal wasting Eyes PERRL, EOMs intact bilaterally and conjunctivae normal Eyes Narrative: No scleral icterus Neck no lymphadenopathy, supple, no JVD and no carotid bruits Resp normal respiratory effort, no retractions, no use of accessory muscles and clear to auscultation bilaterally Resp Narrative: Diffusely diminished but clear Auscultation: Negative for crackles, rales, rhonchi or wheezes Cardio regular rate, regular rhythm, S1 normal heart sound, S2 normal heart sound, no murmurs, no rub, no gallops, no clicks and no JVD GI normal to inspection, nondistended, normoactive bowel sounds, soft to palpation, non-tender and non-distended GI Narrative: Very thin abdomen Extremity no clubbing, cyanosis or edema Extremity Narrative: Marked decreased lean muscle mass Peripheral Pulses: Yes pulses 2+ throughout Skin no rashes or lesions noted, no wounds, skin turgor normal, no jaundice, no petechiae and no mottling Neuro oriented x3, CN's II-XII intact bilaterally, moves all extremities and no focal motor deficits Sensorium / Orientation: awake and alert Speech: speech normal Motor Exam: strength 5/5 throughout Psych affect normal Psych Narrative: Pleasant, good eye contact Results Lab / Micro Data Attestation: I reviewed the patient's lab results. Result Diagrams: 02/07/21 15:57 02/07/21 15:57 Labs: Laboratory Results - last 24 hr 02/07/21 15:57: WBC 1.2 L*, RBC 3.75 L, Hgb 11.3 L, Hct 35.6 L, MCV 94.9 H, MCH 30.1, MCHC 31.7 L, RDW Std Deviation 49.4 H, RDW Coeff of Slime 14.2, Plt Count 188, MPV 9.0, Immature Gran % (Auto) 0.000, Neut % (Auto) 83.0 H, Lymph % (Auto) 15.4 L, [place] % (Auto) 1.6, Eos % (Auto) 0.0, Baso % (Auto) 0.0, Absolute Neuts (auto) 1.0 L, Absolute Lymphs (auto) 0.19 L, Nucleated RBC % 0, Differential Comment , Diff Path Review May foll, Platelet Estimate ADEQUATE, RBC Morphology NORM C+C 02/07/21 15:57: Sodium 141, Potassium 3.3 L, Chloride 104, Carbon Dioxide 29.0, Anion Gap 8, BUN 21 H, Creatinine 0.93, Estim Creat Clear Calc 44.71, Est GFR (MDRD) Af Amer 102, Est GFR (MDRD) Non-Af 85, BUN/Creatinine Ratio 22.6 H, Glucose 134 H, Calcium 9.1, Total Bilirubin 0.30, AST 30, ALT 12 L, Alkaline Phosphatase 79, Troponin I High Sens 12, Total Protein 7.0, Albumin 2.3 L, Globulin 4.7 H, Albumin/Globulin Ratio 0.5 L 02/07/21 16:15: Urine Color Yellow, Urine Clarity Sl. Cloudy, Urine pH 5.0, Ur Specific [place] 1.025, Urine Protein 100 H, Urine Glucose (UA) Normal, Urine Ketones Negative, Urine Occult Blood 250 H, Urine Nitrite Negative, Urine Bilirubin Negative, Urine Urobilinogen 1 H, Ur Leukocyte Esterase 500 H, Urine RBC 10-25 SEEN, Urine WBC 50-100 SEEN, Ur Squamous Epith Cells 0-5 SEEN, Urine Bacteria 0 SEEN, Urine Mucus 0 SEEN, Urine Trichomonas 0-5 SEEN Micro: Microbiology 02/07/21 15:56 Nasal Secretion SARS-CoV-2 Antigen (Rapid) - Final SARS-CoV-2 (COVID 19) Radiology Impression Chest X-Ray 02/07/21 16:20 IMPRESSION: Nonacute portable x-ray examination of the chest. Electronically Signed: Sergey Lin MD (Bro[place]) at 16:37 EST , Service support , Assessment & Plan Assessment/Plan (1) COVID: (2) Acute UTI: (3) Generalized weakness: (4) Leukopenia: (5) Severe malnutrition: PLAN: Acute urinary tract infection -UA is consistent although he does not have bacteriuria with UTI -Highly suspicious this patient has leukopenia and is immunocompromised with chemotherapy -Urine cultures pending -Blood culture is pending -Start ceftriaxone -Await culture result for identification and sensitivities COVID-19 infection -Patient is currently not hypoxic -We will monitor vital signs closely -No need for the initiation of remdesivir or Decadron at this time -Airborne precautions -Patient was not vaccinated -It is difficult to ascertain exactly when symptom onset was patient is somewhat of a poor historian Debility/generalized weakness -Suspect it is related to the above infections -PT/OT consultation -Patient may need short-term placement at discharge although I suspect he will be resistant to this Leukopenia -May be related to Covid versus chemo -Monitor counts -Patient is not neutropenic at this time Severe malnutrition -General diet -Supplementation with Ensure -Dietitian consultation Metastatic esophageal cancer -Patient is currently undergoing palliative chemo and radiation -Follows with Dr. Thakkar -Right [facility] port in place -No current issues -Continue Protonix Insomnia -Continue trazodone DVT prophylaxis Lovenox 40 mg daily CODE STATUS -Full code as verified in the emergency department on admission Charges/Coding Visit Charges Inpatient E&M: 47983 Init Hosp L3
[2021-02-07 20:22] VITALS: BP 127/89; PULSE 71; RESP 16; O2SAT 96
--- NOTE | 2021-02-07 21:48 | ED.RN ---
dr consulted about sepsis. order placed to discontinue sepsis screen. farrukh simmons rn [id number]
[2021-02-07 22:11] VITALS: BP 127/93; PULSE 68; RESP 15; O2SAT 95
--- NOTE | 2021-02-07 23:09 | PCS.PANDOC ---
PANDEMIC DOCUMENTATION INITIATED: Date: 02/07/2021 Time: 0704
[2021-02-07] MEDS: Potassium Chloride Oral Tablet 20 MEQ 40 MEQ PO (23:41)
[2021-02-07] MEDS: 0.9% Normal Saline 1,000 ML 75 ML IV (23:41)
[2021-02-07] MEDS: traZODone 50 MG Tablet PO (23:42)
[2021-02-07] MEDS: Acetaminophen 325 MG Tablet 650 MG PO (23:42)
[2021-02-07] MEDS: guaiFENesin 10 ML UDC (200MG/10ML) 20 ML PO (23:42)
[2021-02-07 23:50] VITALS: BMI 14.3
[2021-02-08 00:12] VITALS: BP 135/95; PULSE 110; RESP 18; TEMP 37.3; O2SAT 100
--- NOTE | 2021-02-08 00:31 | NURSING ---
pt 100% on room air, refused to have continuous pulse ox on finger even after explanation for covid. pt states he does not have covid doesnt believe the lab test.
[2021-02-08 06:08] VITALS: BP 131/83; PULSE 91; RESP 16; TEMP 36.6; O2SAT 98
--- NOTE | 2021-02-08 08:29 | PCM.PN.HOSP ---
Subjective Subjective Patient is a 75-year-old gentleman with history of prostatic esophageal cancer currently undergoing palliative chemoradiation brought to the emergency department with progressive generalized weakness. Urinalysis obtained came back consistent with UTI. His COVID 19 assay also came back positive. Objective Data Objective Data Vital Signs: Vital Signs Temp Pulse Resp BP Pulse Ox 97.9 F 91 16 131/83 H 98 02/08/21 06:08 02/08/21 06:08 02/08/21 06:08 02/08/21 06:08 02/08/21 06:08 Oxygen Delivery Method Room Air Weight: 36.832 kg Body Mass Index (BMI) 14.3 Intake & Output: Intake and Output for Last 24 Hours 02/06/21 02/07/21 02/08/21 23:59 23:59 23:59 Intake Total 550 / 550 100 / 100 Output Total 200 / 200 Balance 550 / 550 -100 / -100 Lab / Micro Data Result Diagrams: 02/07/21 15:57 02/07/21 15:57 Labs: Laboratory Results - last 24 hr 02/07/21 15:57: WBC 1.2 L*, RBC 3.75 L, Hgb 11.3 L, Hct 35.6 L, MCV 94.9 H, MCH 30.1, MCHC 31.7 L, RDW Std Deviation 49.4 H, RDW Coeff of Slime 14.2, Plt Count 188, MPV 9.0, Immature Gran % (Auto) 0.000, Neut % (Auto) 83.0 H, Lymph % (Auto) 15.4 L, [place] % (Auto) 1.6, Eos % (Auto) 0.0, Baso % (Auto) 0.0, Absolute Neuts (auto) 1.0 L, Absolute Lymphs (auto) 0.19 L, Nucleated RBC % 0, Differential Comment , Diff Path Review May , Platelet Estimate ADEQUATE, RBC Morphology NORM C+C 02/07/21 15:57: Sodium 141, Potassium 3.3 L, Chloride 104, Carbon Dioxide 29.0, Anion Gap 8, BUN 21 H, Creatinine 0.93, Estim Creat Clear Calc 44.71, Est GFR (MDRD) Af Amer 102, Est GFR (MDRD) Non-Af 85, BUN/Creatinine Ratio 22.6 H, Glucose 134 H, Calcium 9.1, Total Bilirubin 0.30, AST 30, ALT 12 L, Alkaline Phosphatase 79, Troponin I High Sens 12, Total Protein 7.0, Albumin 2.3 L, Globulin 4.7 H, Albumin/Globulin Ratio 0.5 L 02/07/21 16:15: Urine Color Yellow, Urine Clarity Sl. Cloudy, Urine pH 5.0, Ur Specific [place] 1.025, Urine Protein 100 H, Urine Glucose (UA) Normal, Urine Ketones Negative, Urine Occult Blood 250 H, Urine Nitrite Negative, Urine Bilirubin Negative, Urine Urobilinogen 1 H, Ur Leukocyte Esterase 500 H, Urine RBC 10-25 SEEN, Urine WBC 50-100 SEEN, Ur Squamous Epith Cells 0-5 SEEN, Urine Bacteria 0 SEEN, Urine Mucus 0 SEEN, Urine Trichomonas 0-5 SEEN Micro: Microbiology 02/07/21 15:56 Nasal Secretion SARS-CoV-2 Antigen (Rapid) - Final SARS-CoV-2 (COVID 19) Radiography Diagnostic Testing: Radiology Impression Chest X-Ray 02/07/21 16:20 IMPRESSION: Nonacute portable x-ray examination of the chest. Electronically Signed: Sergey Lin MD (Brooks) at 16:37 EST , Service support , Physical Exam Narrative GENERAL: cooperative HEENT: Atraumatic; EYES; Anicteric, Normal Conjunctiva NECK; supple, normal thyroid, RESPIRATORY: Diminished to auscultation CARDIOVASCULAR: Regular S1 S2, GI: soft, normoactive bowel sounds, : No Renal angle tenderness; EXTREMITIES: No edema, no clubbing, MUSCULOSKELETAL: no muscle waisting NEURO: Awake; no lateralizing signs. SKIN: No Rash PSYCH; Flat affect Assessment & Plan Assessment/Plan (1) COVID: (2) Acute UTI: (3) Generalized weakness: (4) Leukopenia: (5) Severe malnutrition: PLAN: Patient is a 75-year-old gentleman with history of prostatic esophageal cancer currently undergoing palliative chemoradiation brought to the emergency department with progressive generalized weakness. Urinalysis obtained came back consistent with UTI. His COVID 19 assay also came back positive. 1. Acute cystitis ?Patient started on Rocephin cultures sent with plans to adjust antibiotic therapy based on culture result 2. Acute COVID-19 infection ?Patient currently not requiring oxygen therefore not a candidate for remdesivir and Decadron of note patient is now vaccinated 3. Metastatic esophageal cancer ?Currently undergoing palliative radiation and chemotherapy under the auspices of Dr. Thakkar 4. Severe protein calorie malnutrition ?As a result of decreased oral intake muscle wasting in view of patient metastatic esophageal cancer consultation was placed to dietitian with plans to follow the recommendations from dietitian 5. Physical deconditioning - Requested for PT OT eval and family welfare social work professor to assist with discharge planning 6. Leukopenia ?Secondary to recent chemo will monitor 7. DVT prophylaxis ?Lovenox Advance planning; did discuss with the patient regarding advanced directives as well as CODE STATUS. Did explain the various scenarios involved ( FULL CODE, DNR CCA, DNR CCA with no intubation, and DNR CC and what each meant) patient elected to be full code with CPR and intubation if needed. Order was placed. Time spent on discussion 18 minutes. Charges/Coding Visit Charges Inpatient E&M: 51575 Subs Hosp L3
[2021-02-08] MEDS: Enoxaparin 40 MG/0.4 ML Syringe SC (10:57)
[2021-02-08] MEDS: DULoxetine Hcl 30 MG Capsule PO (10:57)
[2021-02-08] MEDS: Pantoprazole Sodium 40 MG Tablet PO (10:57)
[2021-02-08] MEDS: 0.9% Normal Saline 1,000 ML 75 ML IV ×2 (11:17→22:32)
[2021-02-08] MEDS: oxyCODONE 5 MG Tablet PO (11:17)
[2021-02-08 11:21] LABS: Absolute Lymphocyte Count 0.17 X10^3/uL (0.83-4.51); Absolute Neutrophil Count 1.7 X10^3/uL (2.0-7.7); Hematocrit 31.2 % (40-54); Hemoglobin 9.8 g/dL (13.0-16.5); Lymphocyte # 0.17 X10^3/ul (0.83-4.51); Lymphocyte % 8.9 % (19-41); Mean Corp Hgb Conc 31.4 g/dL (32-36); Mean Corpuscular Hgb 29.8 pg (27.0-32.0); Mean Corpuscular Volume 94.8 fL (80-94); Mean Platelet Vol. 9.2 fl (6.2-12.0); Monocyte# 0.02 X10^3/uL; NRBC Flagged by Analyzer 0 % (0-5); Neutrophil % 89.1 % (47-70); POSITIVE DIFFERENTIAL YES; POSITIVE MORPHOLOGY YES; Platelet Count 134 K/mm3 (150-450); RBC Distribution Width CV 14.1 % (11.6-14.6); RBC Distribution Width SD 49.2 fl (35.1-43.9); Red Blood Count 3.29 M/mm3 (4.6-6.2); White Blood Count 1.9 K/mm3 (4.4-11.0)
[2021-02-08 11:22] VITALS: BP 127/83; PULSE 67; RESP 16; TEMP 36.9; O2SAT 93
[2021-02-08 11:22] LABS: Differential Indicated SCAN CRITERIA MET
[2021-02-08 12:03] LABS: ALB/GLOB Ratio 0.5 RATIO (0.9-2.4); AST(SGOT) 28 U/L (15-37); Alanine Aminotransfer ALT/SGPT 10 U/L (16-61); Albumin, Serum 2.2 g/dL (3.2-5.0); Alkaline Phosphatase 76 U/L (45-117); Anion Gap 2 (5-15); BUN 15 mg/dL (7-18); BUN/Creat Ratio 20.1 RATIO (10-20); Calcium,Total 9.3 mg/dL (8.5-10.1); Chloride 110 mmol/L (98-107); Creatinine, Serum 0.75 mg/dL (0.70-1.30); EST Glomerular Filtration Rate 109 mL/min (>60); Est Glom Filt Rate - Afr Amer 131 mL/min (>60); Estimated Creatinine Clearance 33.76 ml/min; Globulin 4.3 g/dL (2.2-4.2); Glucose 113 mg/dL (74-106); Phosphorus 1.9 mg/dL (2.5-4.9); Potassium 3.8 mmol/L (3.5-5.1); Protein, Total 6.5 g/dL (6.4-8.2); Sodium Level 143 mmol/L (136-145); Thyroid Stim Hormone (TSH) 0.46 uIU/mL (0.358-3.74)
[2021-02-08 12:48] VITALS: O2SAT 93
[2021-02-08 13:22] LABS: Pathologist Review Reviewed
--- NOTE | 2021-02-08 15:42 | CASEMGMT ---
Social Work SW met w/pt in room, reviewed prior level of function and anticipated discharge plan. PCP: Dr. Haney Specialists: Dr. Thakkar Insurance: [facility] and [facility] Pharmacy: [facility] Living arrangements/prior level of function: Pt lives home alone in an apartment. Pt states is independent with ADLs, does not use any DME. SW inquired if he cooks, pt states, I get by. SW inquired about making a referral to [facility] [employer] [facility], pt states wants to wait until the start of the year to look into this. LNOK: Pt states has a lot of family around, states that they are all dysfunctional. Pt states has a daughter who lives nearby, other family in the area too. Pt states his sister in law and brother in [place] just . Pt states has two daughters and is . Pt does state family helps pt. LW/POA: Pt does not have POA, he states his niece was supposed to do this and didn't. SW explained that it needs to be initiated by him. SW inquired who he would want as POA, pt states he is not certain. SW explained that without pt designating a POA, his daughters would need to make decisions together should it be needed. Plan: TBD, likely home w/home health. SW spoke w/pt about going somewhere for rehab. SW educated pt that [facility] is the one prison in the area that would take pt since he has COVID. Pt initially was open to this, however then states he wants to get to [place] on Sunday for his brother's . SW mentioned that he is going to be quarantined and may not be able to go. Pt states he thinks his nephew would take him to the , even though he has COVID. Pt also spoke a couple of times about getting a truck that his late brother was giving to him, this seems to be as much of a focus as attending the . SW explained if he is planning to go to his brother's , then we wouldn't be planning to send pt to a prison. SW asked pt about home health, he is open to a home health referral. SW did call [facility], they are not in network with [facility]. As per [place], it would need to be documented that 5 in network facilities denied pt in order for pt's insurance to consider covering pt at [facility]. Since pt has COVID, every other facility in [facility] that takes pt's insurance would deny him. CM aware of the potential home health care referral. CM/SW to follow up w/pt tomorrow to see how pt does with PT/OT, and confirm discharge plan. PAUL Weinstein
[2021-02-08 17:20] VITALS: BP 123/93; PULSE 72; RESP 18; TEMP 36.6; O2SAT 92
[2021-02-08 22:24] VITALS: BP 129/88; PULSE 66; RESP 16; TEMP 36.3; O2SAT 96
[2021-02-08] MEDS: Ceftriaxone 1 GM/50 ML BAG IV (22:31)
[2021-02-08] MEDS: traZODone 50 MG Tablet PO (22:31)
[2021-02-09 01:36] VITALS: O2SAT 97
[2021-02-09 05:39] VITALS: BP 132/85; PULSE 70; RESP 16; TEMP 36.2; O2SAT 96
--- NOTE | 2021-02-09 07:24 | PN.HOSP_ITS ---
Subjective Subjective Came backPatient seen still without supplemental oxygen. Urine cultures came back negative. Plan is for patient to be discharged home Objective Data Objective Data Vital Signs: Vital Signs Temp Pulse Resp BP Pulse Ox 97.2 F L 70 16 132/85 H 96 02/09/21 05:39 02/09/21 05:39 02/09/21 05:39 02/09/21 05:39 02/09/21 05:39 Oxygen Delivery Method Room Air Weight: 40.37 kg Body Mass Index (BMI) 14.3 Intake & Output: Intake and Output for Last 24 Hours 02/07/21 02/08/21 02/09/21 23:59 23:59 23:59 Intake Total 550 / 550 1863.75 / 1863.75 Output Total 200 / 325 625 / 625 Balance 550 / 550 1663.75 / 1538.75 -625 / -625 Medical Nutrition Assessment Dietitian: Malnutrition Criteria Met Start: 02/08/21 14:39 Freq: Status: Active Protocol: Document 02/08/21 14:39 LIZET (Rec: 02/08/21 14:39 SLA [id number]) Nutrition Malnutrition Evidence of Malnutrition Exists Yes Malnutrition (severe): Chronic Evidenced By Suboptimal Energy Intake ( Severe),Weight Loss (Severe) Clinical Problem Chronic Disease or Condition Related Malnutrition Etiology related to esophageal cancer dx 04/2020 and inadequate nutrition intake to meet est nutritional needs Signs/Symptoms as evidenced by <50% po intake x > 6 mo and 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 Recommendation Dietitian Recommendations/Changes Will provide 4 oz ensure enlive and increase to 8 oz as pt tolerates Will continue liberal regular diet - easy to chew - d/t s/s of malnutrition Will order mag and phos d/t risk of refeeding syndrome Lab / Micro Data Result Diagrams: 02/09/21 07:16 02/09/21 07:16 Labs: Laboratory Results - last 24 hr 02/07/21 15:57: Diff Path Review Reviewed 02/08/21 11:10: WBC 1.9 L, RBC 3.29 L, Hgb 9.8 L, Hct 31.2 L, MCV 94.8 H, MCH 29.8, MCHC 31.4 L, RDW Std Deviation 49.2 H, RDW Coeff of Slime 14.1, Plt Count 134 L, MPV 9.2, Immature Gran % (Auto) 1.000 H, Neut % (Auto) 89.1 H, Lymph % (Auto) 8.9 L, [place] % (Auto) 1.0, Eos % (Auto) 0.0, Baso % (Auto) 0.0, Absolute Neuts (auto) 1.7 L, Absolute Lymphs (auto) 0.17 L, Nucleated RBC % 0, Differential Comment COMMENT, Diff Path Review June02/08/21 11:10: Sodium 143, Potassium 3.8, Chloride 110 H, Carbon Dioxide 31.0, Anion Gap 2 L, BUN 15, Creatinine 0.75, Estim Creat Clear Calc 33.76, Est GFR (MDRD) Af Amer 131, Est GFR (MDRD) Non-Af 109, BUN/Creatinine Ratio 20.1 H, Glucose 113 H, Calcium 9.3, Phosphorus 1.9 L, Magnesium 2.0, Total Bilirubin 0.20, AST 28, ALT 10 L, Alkaline Phosphatase 76, Total Protein 6.5, Albumin 2.2 L, Globulin 4.3 H, Albumin/Globulin Ratio 0.5 L, TSH 0.46 Micro: Microbiology 02/07/21 16:15 Urine, Clean Catch Urine Culture - Preliminary Culture exhibits no growth. 02/07/21 15:56 Nasal Secretion SARS-CoV-2 Antigen (Rapid) - Final SARS-CoV-2 (COVID 19) Physical Exam Narrative GENERAL: cooperative HEENT: Atraumatic; EYES; Anicteric, Normal Conjunctiva NECK; supple, normal thyroid, RESPIRATORY: Diminished to auscultation CARDIOVASCULAR: Regular S1 S2, GI: soft, normoactive bowel sounds, : No Renal angle tenderness; EXTREMITIES: No edema, no clubbing, MUSCULOSKELETAL: no muscle waisting NEURO: Awake; no lateralizing signs. SKIN: No Rash PSYCH; Flat affect Assessment & Plan Assessment/Plan (1) COVID: (2) Acute UTI: (3) Generalized weakness: (4) Leukopenia: (5) Severe malnutrition: PLAN: Patient is a 75-year-old gentleman with history of prostatic esophageal cancer currently undergoing palliative chemoradiation brought to the emergency department with progressive generalized weakness. Urinalysis obtained came back consistent with UTI. His COVID 19 assay also came back positive. 1. Acute cystitis ?Patient started on Rocephin cultures sent with plans to adjust antibiotic therapy based on culture result -Patient urine cultures came back negative 2. Acute COVID-19 infection ?Patient currently not requiring oxygen therefore not a candidate for remdesivir and Decadron of note patient is now vaccinated -Patient still not requiring oxygen 3. Metastatic esophageal cancer ?Currently undergoing palliative radiation and chemotherapy under the auspices of Dr. Thakkar 4. Severe protein calorie malnutrition ?As a result of decreased oral intake muscle wasting in view of patient metastatic esophageal cancer consultation was placed to dietitian with plans to follow the recommendations from dietitian 5. Physical deconditioning - Requested for PT OT eval and child protective services social worker to assist with discharge planning 6. Leukopenia ?Secondary to recent chemo will monitor 7. DVT prophylaxis ?Lovenox Charges/Coding Visit Charges Inpatient E&M: 85355 Subs Hosp L2
[2021-02-09 07:50] LABS: Absolute Lymphocyte Count 0.16 X10^3/uL (0.83-4.51); Absolute Neutrophil Count 1.3 X10^3/uL (2.0-7.7); Hematocrit 29.9 % (40-54); Hemoglobin 9.5 g/dL (13.0-16.5); Lymphocyte # 0.16 X10^3/ul (0.83-4.51); Lymphocyte % 10.3 % (19-41); Mean Corp Hgb Conc 31.8 g/dL (32-36); Mean Corpuscular Hgb 30.2 pg (27.0-32.0); Mean Corpuscular Volume 94.9 fL (80-94); Mean Platelet Vol. 9.3 fl (6.2-12.0); Monocyte# 0.05 X10^3/uL; Monocyte% 3.2 % (0-10); NRBC Flagged by Analyzer 0 % (0-5); Neutrophil # 1.34 X10^3/uL (2.7-7.7); Neutrophil % 85.9 % (47-70); POSITIVE DIFFERENTIAL YES; POSITIVE MORPHOLOGY YES; Platelet Count 120 K/mm3 (150-450); RBC Distribution Width CV 14.2 % (11.6-14.6); RBC Distribution Width SD 49.2 fl (35.1-43.9); Red Blood Count 3.15 M/mm3 (4.6-6.2); White Blood Count 1.6 K/mm3 (4.4-11.0)
[2021-02-09 07:54] LABS: Differential Indicated SCAN CRITERIA MET
[2021-02-09 08:09] LABS: Phosphorus 1.8 mg/dL (2.5-4.9)
[2021-02-09 08:10] LABS: ALB/GLOB Ratio 0.5 RATIO (0.9-2.4); AST(SGOT) 26 U/L (15-37); Alanine Aminotransfer ALT/SGPT 10 U/L (16-61); Alkaline Phosphatase 74 U/L (45-117); Anion Gap 1 (5-15); BUN 13 mg/dL (7-18); BUN/Creat Ratio 19.9 RATIO (10-20); Calcium,Total 9.1 mg/dL (8.5-10.1); Chloride 109 mmol/L (98-107); Creatinine, Serum 0.65 mg/dL (0.70-1.30); EST Glomerular Filtration Rate 127 mL/min (>60); Est Glom Filt Rate - Afr Amer 154 mL/min (>60); Estimated Creatinine Clearance 37.01 ml/min; Globulin 4.2 g/dL (2.2-4.2); Glucose 103 mg/dL (74-106); Magnesium 1.7 mg/dL (1.6-2.6); Potassium 3.6 mmol/L (3.5-5.1); Protein, Total 6.2 g/dL (6.4-8.2); Sodium Level 140 mmol/L (136-145)
[2021-02-09] MEDS: Enoxaparin 40 MG/0.4 ML Syringe SC (09:20)
[2021-02-09] MEDS: Pantoprazole Sodium 40 MG Tablet PO (09:20)
[2021-02-09] MEDS: DULoxetine Hcl 30 MG Capsule PO (09:20)
--- NOTE | 2021-02-09 10:51 | DS.PCM_ITS ---
Providers Date of Admission: 02/07/21 Primary Care Physician: Dr. Jacy Haney MD Reason For Visit: COVID 19/UTI Diagnosis Discharge Diagnosis (1) COVID: Status: Acute Code(s): U07.1 - COVID-19 (2) Acute UTI: Status: Acute Code(s): N39.0 - Urinary tract infection, site not specified (3) Generalized weakness: Status: Acute Code(s): R53.1 - Weakness (4) Leukopenia: Status: Acute Code(s): D72.819 - Decreased white blood cell count, unspecified (5) Severe malnutrition: Status: Acute Code(s): E43 - Unspecified severe protein-calorie malnutrition Medications at Discharge Home Medications trazodone 50 mg PO QHS PRN PRN 07/18/20 pantoprazole [Protonix] 40 mg PO DAILY #30 tab 07/20/20 cholecalciferol (vitamin D3) 125 mcg PO DAILY 02/07/21 nystatin 1 ml PO Q6H 02/07/21 cefdinir 300 mg PO BID #10 cap 02/09/21 dexamethasone [Decadron] 6 mg PO DAILY #7 tab 02/09/21 Hospital Course Summary of Care Provided Minutes Spent on Discharge: 45 Hospital Course: Patient is a 75-year-old gentleman with history of prostatic esophageal cancer currently undergoing palliative chemoradiation brought to the emergency department with progressive generalized weakness. Urinalysis obtained came back consistent with UTI. His COVID 19 assay also came back positive. 1. Acute cystitis ?Patient started on Rocephin cultures sent with plans to adjust antibiotic therapy based on culture result -Patient urine cultures came back negative 2. Acute COVID-19 infection ?Patient currently not requiring oxygen therefore not a candidate for remdesivir and Decadron of note patient is now vaccinated -Patient still not requiring oxygen 3. Metastatic esophageal cancer ?Currently undergoing palliative radiation and chemotherapy under the auspices of Dr. Thakkar 4. Severe protein calorie malnutrition ?As a result of decreased oral intake muscle wasting in view of patient metastatic esophageal cancer consultation was placed to dietitian with plans to follow the recommendations from dietitian 5. Physical deconditioning - Requested for PT OT eval and criminal justice social worker to assist with discharge planning 6. Leukopenia ?Secondary to recent chemo will monitor 7. DVT prophylaxis ?Lovenox Physical Exam Narrative GENERAL: cooperative HEENT: Atraumatic; EYES; Anicteric, Normal Conjunctiva NECK; supple, normal thyroid, RESPIRATORY: Diminished to auscultation CARDIOVASCULAR: Regular S1 S2, GI: soft, normoactive bowel sounds, : No Renal angle tenderness; EXTREMITIES: No edema, no clubbing, MUSCULOSKELETAL: no muscle waisting NEURO: Awake; no lateralizing signs. SKIN: No Rash PSYCH; Flat affect Medical Records Data Medical Nutrition Assessment Dietitian: Malnutrition Criteria Met Start: 02/08/21 14:39 Freq: Status: Active Protocol: Document 02/08/21 14:39 SLA (Rec: 02/08/21 14:39 SLA [id number]) Nutrition Malnutrition Evidence of Malnutrition Exists Yes Malnutrition (severe): Chronic Evidenced By Suboptimal Energy Intake ( Severe),Weight Loss (Severe) Clinical Problem Chronic Disease or Condition Related Malnutrition Etiology related to esophageal cancer dx 04/2020 and inadequate nutrition intake to meet est nutritional needs Signs/Symptoms as evidenced by <50% po intake x > 6 mo and 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 Recommendation Dietitian Recommendations/Changes Will provide 4 oz ensure enlive and increase to 8 oz as pt tolerates Will continue liberal regular diet - easy to chew - d/t s/s of malnutrition Will order mag and phos d/t risk of refeeding syndrome Weight / BMI Weight Weight: 40.37 kg Body Mass Index (BMI) 14.3 ABG / Lab / Microbiology Data Result Diagrams: 02/09/21 07:16 02/09/21 07:16 Laboratory: Laboratory Results - last 24 hr 02/07/21 15:57: Diff Path Review Reviewed 02/08/21 11:10: WBC 1.9 L, RBC 3.29 L, Hgb 9.8 L, Hct 31.2 L, MCV 94.8 H, MCH 29.8, MCHC 31.4 L, RDW Std Deviation 49.2 H, RDW Coeff of Slime 14.1, Plt Count 134 L, MPV 9.2, Immature Gran % (Auto) 1.000 H, Neut % (Auto) 89.1 H, Lymph % (Auto) 8.9 L, [place] % (Auto) 1.0, Eos % (Auto) 0.0, Baso % (Auto) 0.0, Absolute Neuts (auto) 1.7 L, Absolute Lymphs (auto) 0.17 L, Nucleated RBC % 0, Differential Comment COMMENT, Diff Path Review [facility] 02/08/21 11:10: Sodium 143, Potassium 3.8, Chloride 110 H, Carbon Dioxide 31.0, Anion Gap 2 L, BUN 15, Creatinine 0.75, Estim Creat Clear Calc 33.76, Est GFR (MDRD) Af Amer 131, Est GFR (MDRD) Non-Af 109, BUN/Creatinine Ratio 20.1 H, Glucose 113 H, Calcium 9.3, Phosphorus 1.9 L, Magnesium 2.0, Total Bilirubin 0.20, AST 28, ALT 10 L, Alkaline Phosphatase 76, Total Protein 6.5, Albumin 2.2 L, Globulin 4.3 H, Albumin/Globulin Ratio 0.5 L, TSH 0.46 02/09/21 07:16: WBC 1.6 L, RBC 3.15 L, Hgb 9.5 L, Hct 29.9 L, MCV 94.9 H, MCH 30.2, MCHC 31.8 L, RDW Std Deviation 49.2 H, RDW Coeff of Slime 14.2, Plt Count 120 L, MPV 9.3, Immature Gran % (Auto) 0.600, Neut % (Auto) 85.9 H, Lymph % (Auto) 10.3 L, [place] % (Auto) 3.2, Eos % (Auto) 0.0, Baso % (Auto) 0.0, Absolute Neuts (auto) 1.3 L, Absolute Lymphs (auto) 0.16 L, Nucleated RBC % 0, Differential Comment COMMENT, Diff Path Review [facility] 02/09/21 07:16: Sodium 140, Potassium 3.6, Chloride 109 H, Carbon Dioxide 30.0, Anion Gap 1 L, BUN 13, Creatinine 0.65 L, Estim Creat Clear Calc 37.01, Est GFR (MDRD) Af Amer 154, Est GFR (MDRD) Non-Af 127, BUN/Creatinine Ratio 19.9, Glucose 103, Calcium 9.1, Magnesium 1.7, Total Bilirubin 0.20, AST 26, ALT 10 L, Alkaline Phosphatase 74, Total Protein 6.2 L, Albumin 2.0 L, Globulin 4.2, Albumin/Globulin Ratio 0.5 L 02/09/21 07:16: Phosphorus 1.8 L Microbiology: Microbiology 02/07/21 16:15 Urine, Clean Catch Urine Culture - Final Mixed Gram Positive Organisms 02/07/21 15:56 Nasal Secretion SARS-CoV-2 Antigen (Rapid) - Final SARS-CoV-2 (COVID 19) D/C Instructions Discharge Diet: Swallowing Precautions Discharge Activity: Return to Normal Activity Call your doctor if you observe: Fever of 101 or Higher, Shortness of breath, Fainting spells and Chest pain Meaningful Use Info Meaningful Use Diagnoses (Choose all that apply): None applicable Discharge Plan Admission Admit Date/Time: 02/07/21 19:04 Attending Provider: Emmett Sanz Primary Care Provider: Jacy Haney Discharge Orders/Prescriptions Prescriptions: New cefdinir 300 mg capsule 300 mg PO BID Qty: 10 RF: 0 dexamethasone [Decadron] 6 mg tablet 6 mg PO DAILY Qty: 7 RF: 0 Continued trazodone 50 mg tablet 50 mg PO QHS PRN PRN (Reason: Insomnia) RF: 0 pantoprazole [Protonix] 40 mg tablet,delayed release (DR/EC) 40 mg PO DAILY Qty: 30 RF: 0 nystatin 100,000 unit/mL suspension 1 ml PO Q6H RF: 0 cholecalciferol (vitamin D3) 125 mcg (5,000 unit) capsule 125 mcg PO DAILY RF: 0 Referrals / Follow Up: Jacy Haney MD [Primary Care Provider] - Within 1 Week Disposition Disposition (needs filled in before D/C Order can be placed): Home, Self Care Charges/Coding Visit Charges Inpatient E&M: 85640 Disch Hosp
[2021-02-09 11:09] VITALS: BP 124/86; PULSE 62; RESP 16; TEMP 36.4; O2SAT 97
[2021-02-09 11:14] VITALS: RESP 16
--- NOTE | 2021-02-09 11:35 | CASEMGMT ---
Addendum entered by Honey Diaz 02/09/21 12:47: Recieved call back from [facility] and they are able to accept the patient. KARLOS LUZ updated patient. Original Note: KARLOS LUZ updated by that patient would like [facility] and prefers [facility]. KARLOS LUZ call Kaity at [facility] and made referral. KARLOS LUZ awaiting call back with acceptance.
--- NOTE | 2021-02-09 12:03 | CASEMGMT ---
Social Work SW met with pt in room to discuss discharge plan. Pt does not wish to go to SNF at this time but is open to home health services. Pt was provided list of Home Health providers including quality and resource use data and consistent with the patient's preferred geographic region medical needs and insurance network. Pt preferred provider is [facility]. KHADIJAH updated Honey HINOJOSA. JC Babb
[2021-02-09 13:56] LABS: Pathologist Review Reviewed
[2021-02-09 14:17] LABS: Pathologist Review Reviewed
[2021-02-09 15:34] VITALS: BP 125/89; PULSE 90; RESP 16; TEMP 36.5; O2SAT 96
--- NOTE | 2021-02-15 10:31 | CM.ED ---
KHADIJAH Note Sw received email from Elsy Mcintyre that Patient was not linked with [facility] program so she requested address and contact information. Patient had been in agreement with referral. SW faxed referral information to Elsy Mcintyre at [facility]. Plan: Linkage with resource Mari ANDRADE
== END 2021-02-09 17:47 | disposition home health service (06) | DRG 689 ==
LOC: ED 18:26 → MS2 02-08 07:06
PROVIDERS: Admitting Provider Internal Medicine; Emergency Provider Emergency Medicine; PCP Internal Medicine; Visit Provider Internal Medicine
DX: N30.00 Acute cystitis without hematuria (principal); C79.9 Secondary malignant neoplasm of unspecified site; C15.9 Malignant neoplasm of esophagus, unspecified; D70.1 Agranulocytosis secondary to cancer chemotherapy; E43 Unspecified severe protein-calorie malnutrition; U07.1 COVID-19; Z92.3 Personal history of irradiation; F17.210 Nicotine dependence, cigarettes, uncomplicated; E87.6 Hypokalemia; T45.1X5A Adverse effect of antineoplastic and immunosuppressive drugs, initial encounter; Y92.9 Unspecified place or not applicable; G47.00 Insomnia, unspecified; J45.909 Unspecified asthma, uncomplicated; G89.29 Other chronic pain; M19.90 Unspecified osteoarthritis, unspecified site; N40.0 Benign prostatic hyperplasia without lower urinary tract symptoms; K21.9 Gastro-esophageal reflux disease without esophagitis; F32.A Depression, unspecified; F41.9 Anxiety disorder, unspecified; Z79.899 Other long term (current) drug therapy
CPT/HCPCS: 36415; 71045; 80053; 81001; 83735; 84100; 84443; 84484; 85025; 87040; 87086; 87088; 87426; 93005; 94667; 96361; 96365; 96366; 96372; 96375; 97162; 97166; 99218; 99251; 99285; 99406; J7030; J7040; A4216; G0378; G0463; J2405

== ENCOUNTER 2021-02-16 05:57 | Emergency (ER) | payer MEDICARE, MEDICAID, SELFPAY ==
[2021-02-16 06:00] VITALS: TEMP 35.5; BMI 15.9
--- NOTE | 2021-02-16 06:36 | EX.ED.DYSGE1 ---
HPI History of Present Illness Chief Complaint: CPR Narrative Narrative: Patient is a 75-year-old male with past medical history of throat cancer. EMS states they were called when patient was found unresponsive this morning. EMS states when they arrived the patient was pulseless and apneic and he was in asystole. They state it was about 10 minutes from the time that the call went out until they arrived. EMS reports they perform ACLS protocol and recording the patient for another 20 to 30 minutes with rhythms bouncing between asystole and PEA despite getting multiple rounds of epinephrine. They did check the patient's blood sugar and it was low and despite giving him an amp they could not get the value elevated and so therefore brought him to the hospital for evaluation. [facility] Medical History Arthritis Asthma Biceps tendon rupture Cancer Chronic back pain Depression with anxiety Difficulty chewing Drug abuse in remission Enlarged prostate Gastric reflux Marijuana use Rash Smoker Substance abuse Wears glasses Wears partial dentures Home Medications trazodone 50 mg PO QHS PRN PRN 07/18/20 [History Last Taken Unknown] pantoprazole [Protonix] 40 mg PO DAILY #30 tab 07/20/20 [Rx Last Taken 10/15/20 09:00] cholecalciferol (vitamin D3) 125 mcg PO DAILY 02/07/21 [History Last Taken Unknown] nystatin 1 ml PO Q6H 02/07/21 [History Last Taken Unknown] cefdinir 300 mg PO BID #10 cap 02/09/21 [Rx Last Taken Unknown] dexamethasone [Decadron] 6 mg PO DAILY #7 tab 02/09/21 [Rx Last Taken Unknown] dexamethasone [Decadron] 6 mg PO DAILY #7 tab 02/11/21 [Rx Last Taken Unknown] Allergy/AdvReac Type Severity Reaction Status Date / Time No Known Allergies Allergy Verified 02/07/21 12:59 Family History Father Cancer LUNG Arthritis Mother Arthritis Brother Arthritis Sister Arthritis Surgical History Jaw fracture Social History household members: none Smoking Status: Former smoker quit date: 06/28/20 how long ago did patient quit smoking: Patient quit 06/28/20, smoked 3 black/mild cigar daily, prior 1/2 ppd cigaret alcohol intake: current alcohol intake frequency: 0-2 drinks per day Alcohol type: beer and wine substance use type: marijuana what type of physical activity do you participate in: bicycling frequency: 5-6 times per week ROS ROS ED Review of Systems ROS Unobtainable: other Details: Unable to obtain secondary to medical condition/acuity EXAM Physical Exam Const Vital Signs: 02/16/21 06:00 Temperature 96 F L Temperature Source Temporal Constitutional Narrative: Patient is unresponsive with GCS of 3 HEENT HEENT Narrative: Normocephalic atraumatic Eyes Eyes Narrative: Pupils are fixed and dilated there is no corneal reflex Chest Wall palpation of chest normal Resp Resp Narrative: No spontaneous respirations auscultated but there are bilateral breath sounds with bagging Cardio Rate: other Other Details: No spontaneous cardiac rhythm auscultated no central or peripheral pulses palpated GI non-distended Palpation: soft Extremity normal to inspection Neuro Neuro Narrative: Patient is unresponsive with GCS of 3 Skin no rashes or lesions noted MDM MDM MDM Narrative Medical decision making narrative: Patient presented to the ER after 30 to 40 minutes of known downtime be in PEA and asystole. However his blood sugar was low for EMS and therefore we continued ACLS protocol. Patient continued to receive epinephrine and he was given 2 more amps of D50. Despite this his blood sugar read low with finger prick blood retrieval. Therefore his port was accessed for central blood obtainment and at this time the blood sugar was now reading high. Therefore at this time patient has been down for approximately 50 minutes he has had asystole and PEA is his predominant rhythms his body temperature is not hypothermic and his blood sugar has been improved. Despite this he still has no cardiac activity and this was confirmed under ultrasound visualization. Therefore the patient was pronounced at 6:09 AM Critical Care Time Critical Care Time: Yes Critical care time (excluding procedures): - (Please note critical care time of approximately 20 minutes) Discharge Plan Triage Chief Complaint: CPR ED Provider: Brandon Frye Dx/Rx/DC Orders Clinical Impression: Cardiopulmonary arrest Prescriptions: No Action trazodone 50 mg tablet 50 mg PO QHS PRN PRN (Reason: Insomnia) RF: 0 pantoprazole [Protonix] 40 mg tablet,delayed release (DR/EC) 40 mg PO DAILY Qty: 30 RF: 0 nystatin 100,000 unit/mL suspension 1 ml PO Q6H RF: 0 cholecalciferol (vitamin D3) 125 mcg (5,000 unit) capsule 125 mcg PO DAILY RF: 0 cefdinir 300 mg capsule 300 mg PO BID Qty: 10 RF: 0 dexamethasone [Decadron] 6 mg tablet 6 mg PO DAILY Qty: 7 RF: 0 dexamethasone [Decadron] 6 mg tablet 6 mg PO DAILY Qty: 7 RF: 0 Primary Care Provider: Jacy Haney Referrals: Jacy Haney MD [Primary Care Provider] - Disposition Disposition:
[2021-02-16 08:56] LABS: Bedside Glucose < 10 mg/dL (70-110)
[2021-02-16 08:56] LABS: Bedside Glucose > 500 mg/dL (70-110)
== END 2021-02-16 08:59 ==
PROVIDERS: Emergency Provider Emergency Medicine; PCP Internal Medicine
DX: I46.9 Cardiac arrest, cause unspecified (principal); M19.90 Unspecified osteoarthritis, unspecified site; K21.9 Gastro-esophageal reflux disease without esophagitis; J45.909 Unspecified asthma, uncomplicated; Z79.52 Long term (current) use of systemic steroids; Z79.899 Other long term (current) drug therapy; Z85.818 Personal history of malignant neoplasm of other sites of lip, oral cavity, and pharynx; Z87.891 Personal history of nicotine dependence
CPT/HCPCS: 82962; 92950; 99282; A4216